=== PATIENT | female | born 1975 | race Caucasian/White ===

== ENCOUNTER → 2016-06-08 11:50 | Day surgery (SDC) | payer OTHER ==
--- NOTE | 2016-06-04 03:50 | HP ---
PREOPERATIVE HISTORY AND PHYSICAL: DATE OF ADMISSION: 06/08/16 DATE OF OFFICE VISIT/ENCOUNTER: 06/02/16 ATTENDING SURGEON: Lydia Weaver MD PROCEDURE: Left wrist carpal tunnel release. CHIEF COMPLAINT: Numbness and tingling in left hand. HISTORY OF PRESENT ILLNESS: This is a 41-year-old female who complains of numbness and tingling in her left hand that has been present for several months now. She has had a nerve conduction study in the past, which showed carpal tunnel syndrome present on the left. She has received a cortisone injection in the past, which was helpful; however, the symptoms returned and she reports that they are progressively worsening. She has also tried braces to no avail. She has recently undergone a right carpal tunnel release and is pleased with the results and is interested in pursuing the same surgical intervention for her left wrist at this time. PAST MEDICAL HISTORY: 1. Asthma. 2. Diabetes. 3. Emphysema. 4. Hypertension. 5. Sleep apnea. 6. Depression/anxiety. 7. Acid reflux. 8. Hypothyroidism. PAST SURGICAL HISTORY: 1. Appendectomy. 2. Right carpal tunnel release. CURRENT MEDICATIONS: 1. Fluticasone propionate. 2. Gabapentin 300 mg daily. 3. Hydroxyzine HCL 25 mg daily. 4. Hydroxyzine pamoate 50 mg 2 tabs daily. 5. Lexapro 20 mg daily. 6. Metformin HCL 500 mg daily. 7. Metformin HCL ER 1000 mg b.i.d. 8. Naproxen 500 mg b.i.d. p.r.n. pain. 9. Nortriptyline HCL 10 mg 3 to 4 caps every night. 10. Oxybutynin chloride ER 10 mg daily. 11. Prazosin HCL 1 mg daily. 12. Propranolol HCL 20 mg b.i.d. 13. Singulair 10 mg daily. 14. Symbicort 80/4.5 mcg/ACT 2 puffs twice a day. 15. Synthroid 25 mcg a day. 16. Trazodone HCL 100 mg 2 tabs q.h.s. 17. Ventolin HFA inhaler 2 puffs q.4 hours p.r.n. ALLERGIES: 1. MORPHINE causes hives and itching. 2. OXYCODONE causes hives and itching. 3. LATEX allergy. FAMILY MEDICAL HISTORY: Significant for heart disease, lung disease, cancer, and diabetes. SOCIAL HISTORY: The patient is on disability. She smokes currently and has been a smoker for on and off for several years. Currently, she is smoking a pack or up to 2 packs per day. She denies recreational drug use. Admits to alcohol use on social occasions. REVIEW OF SYSTEMS: General: Negative for fevers, chills, or night sweats. No known anesthesia problems. HEENT: Negative for headache, lightheadedness, or syncopal episodes. Integumentary: Negative for abrasions, lesions, or open wounds. Cardiothoracic: Positive for hypertension. Negative for chest pain, palpitations, or edema. Pulmonary: Positive for chronic cough and emphysema, and shortness of breath with exertion. GI: Positive for GERD. Negative for nausea, vomiting, diarrhea, constipation. : Negative for nocturia, urinary frequency, urgency, history of UTIs, or kidney problems. Musculoskeletal: Positive for current complaint. Negative for chronic or intermittent back pain or history of fractures. Neurological: Positive for depression/anxiety. Negative for history of seizure, stroke, or epilepsy. Endocrine: Positive for diabetes and hypothyroidism. Hematologic: Negative for easy bruising, anemia, excessive bleeding, or history of DVT. Infectious Disease: Positive for history of MRSA in her right knee approximately 3 years ago. Negative for hepatitis C or HIV. PHYSICAL EXAMINATION GENERAL: Well-developed, well-nourished 41-year-old female, in no acute distress. VITAL SIGNS: Height 5 feet 3 inches, weight 241 pounds, pulse rate 70, blood pressure 127/75. HEENT: Normocephalic, atraumatic. Pupils are equal, round, and reactive to light and accommodation. Extraocular movements are intact. Throat is clear. NECK: Supple. No palpable lymph nodes. PULMONARY: Lungs are clear to auscultation bilaterally. No wheezes, rales, or rhonchi. CARDIOTHORACIC: Regular rate and rhythm. S1, S2. No murmurs, rubs, or gallops. No edema. ABDOMEN: Positive bowel sounds, soft, nontender. NEUROLOGICAL: Alert and oriented x3. Cranial nerves II through XII are intact. Sensation is intact to light touch. MUSCULOSKELETAL: On exam of her left hand, there is no visible thenar wasting. She has mild weakness in left thumb abduction. Mildly positive Tinel's sign at the wrist and a positive Phalen's test. She has good motion in her fingers and wrist. Sensation is intact to light touch. EMG/nerve conduction study shows mild carpal tunnel syndrome on the left. IMPRESSION: Left carpal tunnel syndrome. PLAN: The patient is scheduled to undergo a left carpal tunnel release with Dr. Weaver on 06/08/16. She will return to the office in 10 to 14 days postop for followup and suture removal. A prescription for Ultracet was e-scribed to the patient's pharmacy for postoperative pain management. AIMEE HENDRICKSON [id number]/NADINE #: [id number] MTDNirmal
[~2016-06-08 11:50] MED LIST: Acetaminophen TAB* 325 MG PO PRN; Buffered Lidocaine 1% SYR 3ML* 3 ML/SYR SYRINGE INTRADERM ONE; Buffered Lidocaine 1% SYR 3ML* 3 ML/SYR SYRINGE ONE; DiMENhydriNATE IV* 50 MG/ML VIAL IV PUSH PRN; Famotidine IV* 10 MG/ML 2 ML (20 mg) IV ONE; Famotidine IV* 10 MG/ML 2 ML (20 mg) ONE; Ketorolac INJ* 30 MG/ML 1 ML VIAL ONE; Lidocaine 1% INJ* 10 MG/ML 30 ML SDV ONE; Midazolam* 1 MG/ML 5 ML VIAL (5 MG) ONE; Ondansetron INJ* 2 MG/ML VIAL ONE; Propofol* 10 MG/ML 20 ML BTL IV PUSH ONE; fentaNYL* 50 MCG/ML 2 ML VIAL (100 MCG VIAL) ONE
[2016-06-08 17:03] VITALS: BP 120/77
--- NOTE | 2016-06-09 04:37 | OP ---
DATE OF OPERATION: 06/08/16 - [facility] [place] DATE OF : 77 SURGEON: Lydia Weaver MD FREIGHT ADJUSTER: AIMEE Edwards ANESTHESIA: Local, MAC. PRE-OP DIAGNOSIS: Left carpal tunnel syndrome. POST-OP DIAGNOSIS: Left carpal tunnel syndrome. OPERATIVE PROCEDURE: Left carpal tunnel release. ESTIMATED BLOOD LOSS: Zero. TOURNIQUET TIME: About 8 minutes. INDICATIONS: Fartun is a 41-year-old female with numbness and tingling in the median nerve distribution of her left hand. She presents for carpal tunnel release. DESCRIPTION OF PROCEDURE: The patient was brought to the operating room and was given a sedation anesthetic and a local infiltration of 10 cc of 1% plain lidocaine. The skin of her left hand and forearm was prepped and draped in the usual sterile fashion. The hand and forearm were exsanguinated and the tourniquet elevated to 250 mmHg. A longitudinal incision was made in the palm in line with the ring finger, dissected sharply through the subcutaneous tissue down to the transverse carpal ligament. The ligament was divided sharply with a knife and then more proximally with the scissors. The nerve was dissected free from the surrounding tissue and there was an area of moderate compression at the midportion of the ligament. The wound was irrigated and skin edges reapproximated with 4-0 nylon suture. The wound was dressed with Xeroform, 4x4 , Webril, and an Rai wrap. The patient tolerated the procedure well and was brought to the recovery room in good condition. [id number]/CPS #: [id number] MTDD
== END | disposition home or self-care (01) ==
LOC: OREAST 11:50
PROVIDERS: ATTEND Orthopaedic Surgery
DX: G56.02 Carpal tunnel syndrome, left upper limb (principal); E11.8 Type 2 diabetes mellitus with unspecified complications; E03.9 Hypothyroidism, unspecified; F17.210 Nicotine dependence, cigarettes, uncomplicated; I10 Essential (primary) hypertension; J43.9 Emphysema, unspecified
CPT/HCPCS: J1885; J2250; J2405; J2704; J3010

== ENCOUNTER 2017-06-23 12:49 | Emergency (ER) | payer OTHER ==
[2017-06-23 14:34] VITALS: BP 115/59
--- NOTE | 2017-06-23 14:57 | UC ---
Complaint Female HPI - HPI Summary HPI Summary: 1. left medial ankle pain -for 1 week, painful with movement, did have a few episodes of twisting left ankle recently 2. thick yellow vaginal discharge for 1 week 3. pain and burning with urination for 1 week, no fevers, flank pain, nausea or vomiting 4. Blood sugars have been running 200-300 + she "doesn't know why". Patient states she "eats no sugars", but with further discussion she eats a lot of rice , pasta, white bread, potatoes---she did not realize these break down in to simple sugars - History Of Current Complaint Chief Complaint: UCGU Stated Complaint: ABD PAIN, PAINFUL URINATION Time Seen by Provider: 06/23/17 14:36 Hx Obtained From: Patient Hx Last Menstrual Period: 06/14/2017 ?: No Onset/Duration: Gradual Onset, Lasting Weeks - 1-2, Still Present Timing: Constant Severity Initially: Moderate Severity Currently: Moderate Pain Intensity: 6 Character: Burning - with urination Aggravating Factor(s): Urination Alleviating Factor(s): Nothing Associated Signs And Symptoms: Positive: Vaginal Discharge - Allergies/Home Medications Allergies/Adverse Reactions: Allergies Allergy/AdvReac Type Severity Reaction Status Date / Time MS Latex [Latex] Allergy Intermediate Rash Verified 06/23/17 14:26 MS Oxycodone [Oxycodone] Allergy Intermediate Rash Verified 06/23/17 14:26 MS Morphine [Morphine] Allergy Mild n/v Verified 06/23/17 14:26 BEETS Allergy Intermediate WATERY Uncoded 06/23/17 14:26 EYES, NAUSEA PMH/Surg Hx/FS Hx/Imm Hx Previously Healthy: No Endocrine History: Diabetes, Hypothyroidism, Dyslipidemia Cardiovascular History: Hypertension GI/ History: Other Other GI/ History: "weak bladder" Psychological History: Anxiety, Depression Other History Of: Negative For: HIV, Hepatitis B, Hepatitis C, Anticoagulant Therapy - Surgical History Surgical History: Yes Surgery Procedure, Year, and Place: 2015 APPENDECTOMY [facility] [place]. 04/2016 RT HAND CARPAL TUNNEL [facility] [place] - Family History Known Family History: Positive: None, Hypertension, Diabetes Negative: Cardiac Disease, Renal Disease, Respiratory Disease, Seizure Disorder, Blood Disorder, Other - Social History Occupation: Unemployed Lives: With Family Alcohol Use: Weekly Alcohol Amount: FEW DRINKS/ WEEK Substance Use Type: None Smoking Status (MU): Heavy Every Day Tobacco Smoker Type: Cigarettes Amount Used/How Often: 1PPD SINCE FALL 2015 ( STATES SHE HAS QUIT AND STARTED BACK MANY TIMES Have You Smoked in the Last Year: Yes Household Exposure Type: Cigarettes Cessation Counseling: Counseled 3+Min - 10 Min - Immunization History Most Recent Influenza Vaccination: Most Recent Tetanus Shot: unable to determine Most Recent Pneumonia Vaccination: unable to determine Review of Systems Constitutional: Negative Skin: Negative Eyes: Negative ENT: Negative Respiratory: Negative Cardiovascular: Negative Gastrointestinal: Negative Genitourinary: Dysuria, Hematuria, Frequency, Urgency, Vaginal/Penile Burning, Vaginal/Penile Discharge Motor: Decreased ROM - left ankle Neurovascular: Negative Musculoskeletal: Arthralgia - left ankle Neurological: Negative Psychological: Negative Is Patient Immunocompromised?: No All Other Systems Reviewed And Are Negative: Yes Physical Exam Triage Information Reviewed: Yes Appearance: Well-Appearing, No Pain Distress, Obese Vital Signs: Initial Vital Signs Temp 99.2 F 06/23/17 14:27 Pulse 83 06/23/17 14:27 Resp 18 06/23/17 14:27 BP 115/59 06/23/17 14:27 Pulse Ox 96 06/23/17 14:27 Vital Signs Reviewed: Yes Eye Exam: Normal Eyes: Positive: Conjunctiva Clear ENT Exam: Normal ENT: Positive: Normal ENT inspection, Hearing grossly normal. Negative: Nasal congestion, Trismus, Muffled voice, Hoarse voice Dental Exam: Normal Neck exam: Normal Neck: Positive: Supple, Nontender Respiratory Exam: Normal Respiratory: Positive: Chest non-tender, No respiratory distress, No accessory muscle use Cardiovascular Exam: Normal Cardiovascular: Positive: RRR, Pulses Normal, Brisk Capillary Refill Abdominal Exam: Normal Abdomen Description: Positive: Nontender, No Organomegaly, Soft. Negative: CVA Tenderness (R), CVA Tenderness (L) Bowel Sounds: Positive: Present Musculoskeletal Exam: Normal Musculoskeletal: Positive: Strength Intact, No Edema, ROM Limited @ - left ankle due to pain Neurological Exam: Normal Neurological: Positive: Alert, Muscle Tone Normal Psychological Exam: Normal Skin Exam: Normal UC Physical Exam Vital Signs On Initial Exam: Initial Vitals Temp Pulse Resp BP Pulse Ox 99.2 F 83 18 115/59 96 06/23/17 14:27 06/23/17 14:27 06/23/17 14:27 06/23/17 14:27 06/23/17 14:27 - Genitalia Exam Female Genitourinary: Normal External Exam, Other - godinez yellow thick vaginal secretions Diagnostics - Laboratory Diagnostic Studies Completed/Ordered: +nitrite, trace blood, +1 leukoesterace. [id number] Complaint Female Dx - Course Course Of Treatment: Keflex, Flagyl, Diflucan times 1, follow with automobile rental agent as planned---continue to check blood sugars and discuss diet with your providers, Ice wrap for ankle follow with pcp prn - Differential Dx/Diagnosis Provider Diagnoses: Vaginitis, UTI, Left ankle pain, Hyperglycemia, nicotine dependent Discharge - Discharge Plan Condition: Stable Disposition: HOME Prescriptions: Cephalexin CAP* [Keflex CAP*] 500 mg PO BID #20 cap Fluconazole [Diflucan 150 MG (NF)] 150 mg PO ONCE #1 tab Metronidazole [Flagyl 500 MG TAB] 500 mg PO BID #14 tab Patient Education Materials: How to Stop Smoking (ED), Urinary Tract Infection in Women (DC), Vaginitis (ED), Arthralgia (ED), Diabetic Hyperglycemia (ED) Referrals: Jordyn Smith MD [Primary Care Provider] - If Needed Additional Instructions: Follow with [facility] 06/30/17 as planned
[2017-06-23] MEDS ORDERED: Ibuprofen TAB* 600 MG PO ONE (14:58)
--- NOTE | 2017-06-23 15:28 | RAD ---
INDICATION: Ankle pain. TECHNIQUE: 3 views of the left ankle were obtained. FINDINGS: There is diffuse soft tissue swelling. The bones are in normal alignment. No fracture is seen. Joint spaces appear maintained. IMPRESSION: SOFT TISSUE SWELLING.
--- NOTE | 2017-06-24 17:44 | UC ---
- Progress Note Progress Note: U/A >100,000 KLebsiella Oxytoca----pending sensitivities---will d/c Keflex Change to Cipro 500 mg po bid for 7 days ---continue flagyl
== END 2017-06-23 15:58 | disposition home or self-care (01) ==
LOC: UCEAST 12:49
DX: M25.572 Pain in left ankle and joints of left foot (principal); N76.0 Acute vaginitis; N39.0 Urinary tract infection, site not specified; R31.9 Hematuria, unspecified; B96.1 Klebsiella pneumoniae [K. pneumoniae] as the cause of diseases classified elsewhere; E11.65 Type 2 diabetes mellitus with hyperglycemia; E03.9 Hypothyroidism, unspecified; E78.5 Hyperlipidemia, unspecified; I10 Essential (primary) hypertension; F41.9 Anxiety disorder, unspecified; F32.9 Major depressive disorder, single episode, unspecified; E66.9 Obesity, unspecified; Z88.5 Allergy status to narcotic agent; Z91.040 Latex allergy status; Z71.6 Tobacco abuse counseling; F17.210 Nicotine dependence, cigarettes, uncomplicated
CPT/HCPCS: 81003; 81025; 87077; 87086; 87186; 87480; 87491; 87510; 87591; 87661; 99213; A9270-GY; G0463

== ENCOUNTER 2017-11-08 20:37 | Emergency (ER) | payer OTHER ==
[2017-11-08] MEDS ORDERED: Sulfamethox/Trimethoprim DS 800/160* TAB PO ONE (20:53)
[2017-11-08 20:57] VITALS: BP 115/74
--- NOTE | 2017-11-08 21:06 | UC ---
Mulugeta Rice Stephanie, scribed for Stephen Calixto MD on 11/08/17 at 2057 . Upper Extremity HPI - HPI Summary HPI Summary: The pt is a 42 y/o F presenting to with c/o L arm pain that began 2 weeks ago. Symptoms include abrasions, swelling, redness and increased temperature in the L arm. The pt denies trauma and heavy lifting. - History of Current Complaint Stated Complaint: ARM PAIN Time Seen by Provider: 11/08/17 20:48 Hx Obtained From: Patient Hx Last Menstrual Period: 06/14/2017 Onset/Duration: Gradual Onset, Lasting Weeks - 2, Still Present Severity Currently: Moderate Location Of Pain: Is Discrete @ - L arm Aggravating Factor(s): Nothing Alleviating Factor(s): Nothing Associated Signs And Symptoms: Positive: Swelling, Redness - Allergies/Home Medications Allergies/Adverse Reactions: Allergies Allergy/AdvReac Type Severity Reaction Status Date / Time latex Allergy Rash Verified 11/08/17 20:58 morphine Allergy Nausea And Verified 11/08/17 20:58 Vomiting oxycodone Allergy Rash Verified 11/08/17 20:58 BEETS Allergy Intermediate WATERY Uncoded 06/23/17 14:26 EYES, NAUSEA PMH/Surg Hx/FS Hx/Imm Hx Cardiovascular History: Other Other Cardiovascular History: Negative: HTN Other History Of: Negative For: HIV, Hepatitis B, Hepatitis C, Anticoagulant Therapy - Surgical History Surgical History: Yes Surgery Procedure, Year, and Place: 2014 APPENDECTOMY [facility]. 04/2016 RT HAND CARPAL TUNNEL [facility] - Family History Known Family History: Positive: Hypertension, Diabetes Negative: Cardiac Disease, Renal Disease, Respiratory Disease, Seizure Disorder, Blood Disorder, Other - Social History Occupation: Unemployed Lives: With Family Alcohol Use: Weekly Alcohol Amount: FEW DRINKS/ WEEK Substance Use Type: None Smoking Status (MU): Heavy Every Day Tobacco Smoker Type: Cigarettes Amount Used/How Often: 1PPD SINCE FALL 2015 ( STATES SHE HAS QUIT AND STARTED BACK MANY TIMES Have You Smoked in the Last Year: Yes Household Exposure Type: Cigarettes - Immunization History Most Recent Influenza Vaccination: 9637-4671 season Most Recent Tetanus Shot: unable to determine Most Recent Pneumonia Vaccination: unable to determine Review of Systems Constitutional: Negative Skin: Other - abrasions over L forearm Eyes: Negative ENT: Negative Respiratory: Negative Cardiovascular: Negative Gastrointestinal: Negative Genitourinary: Negative Motor: Negative Neurovascular: Negative Musculoskeletal: Other: - L arm pain, L arm redness and swelling Neurological: Negative Psychological: Negative All Other Systems Reviewed And Are Negative: Yes Physical Exam - Summary Physical Exam Summary: VITAL SIGNS: Reviewed. GENERAL: Patient is a well-developed and nourished FEMALE who is lying comfortable in the stretcher. Patient is not in any acute respiratory distress. HEAD AND FACE: Normocephalic EYES: PERRLA, EOMI x 2. EARS: Hearing grossly intact. MOUTH: Oropharynx within normal limits. NECK: Supple, trachea is midline, no adenopathy, no JVD, no carotid bruit. CHEST: Symmetric, no tenderness at palpation LUNGS: Clear to auscultation bilaterally. No wheezing or crackles. CVS: Regular rate and rhythm, S1 and S2 present, no murmurs or gallops appreciated. ABDOMEN: Soft, non-tender. Bowel sounds are normal. No abdominal abnormal pulsations. EXTREMITIES: Full ROM in all major joints, no edema, no cyanosis or clubbing. Small cellulitis in L arm and multiple abrasions in L forearm NEURO: Alert and oriented x 3. No acute neurological deficits. Speech is normal and follows commands. SKIN: Dry and warm Triage Information Reviewed: Yes Vital Signs: Initial Vital Signs Temp 98.3 F 11/08/17 20:53 Pulse 79 11/08/17 20:53 Resp 16 11/08/17 20:53 BP 115/74 11/08/17 20:53 Pulse Ox 97 11/08/17 20:53 Vital Signs Reviewed: Yes Upper Extremity Course/Dx - Course Course Of Treatment: Patient with the left arm cellulitis. The patient was placed in Bactrim. Patient was instructed to return to the urgent care or go to the emergency room if symptoms worsen. The patient understands and agrees. - Differential Dx/Diagnosis Provider Diagnoses: cellulitis Discharge - Sign-Out/Discharge Documenting (check all that apply): Discharge/Admit/Transfer - Discharge Plan Condition: Stable Disposition: HOME Prescriptions: Sulfamethox/Trimethoprim DS* [Bactrim DS 800/160 TAB*] 1 tab PO BID #20 tab Patient Education Materials: Cellulitis (ED) Referrals: David Mitchell MD [Primary Care Provider] - - Billing Disposition and Condition Condition: STABLE Disposition: Home The documentation as recorded by the Mulugeta shrestha Stephanie accurately reflects the service I personally performed and the decisions made by me, Stephen Calixto MD.
== END 2017-11-08 21:05 | disposition home or self-care (01) ==
LOC: UCEAST 20:37
DX: L03.114 Cellulitis of left upper limb (principal); Z88.5 Allergy status to narcotic agent; Z91.040 Latex allergy status; F17.210 Nicotine dependence, cigarettes, uncomplicated; Z82.49 Family history of ischemic heart disease and other diseases of the circulatory system; Z83.3 Family history of diabetes mellitus
CPT/HCPCS: 99202; A9270-GY; G0463

== ENCOUNTER 2018-01-14 19:38 | Emergency (ER) | payer OTHER ==
[2018-01-14 19:49] VITALS: BP 107/66
--- NOTE | 2018-01-14 20:02 | UC ---
Skin Complaint HPI - HPI Summary HPI Summary: developing an abscess on the left side of her chin, red and painful, patient reports picking at it but has had no drainage history of MRSA - History of Current Complaint Chief Complaint: UCSkin Time Seen by Provider: 01/14/18 19:53 Stated Complaint: CHIN COMPLAINT Hx Obtained From: Patient Hx Last Menstrual Period: 11/28/17 ?: No Onset/Duration: Gradual Onset, Lasting Days, Still Present Timing: Constant Pain Intensity: 7 Pain Scale Used: 0-10 Numeric Location: Discrete Character: Pain, Redness, Raised Aggravating Factor(s): Touch Alleviating Factor(s): Nothing Associated Signs & Symptoms: Positive: Tenderness - Allergy/Home Medications Allergies/Adverse Reactions: Allergies Allergy/AdvReac Type Severity Reaction Status Date / Time latex Allergy Rash Verified 01/14/18 19:49 morphine Allergy Nausea And Verified 01/14/18 19:49 Vomiting oxycodone Allergy Rash Verified 01/14/18 19:49 BEETS Allergy Intermediate WATERY Uncoded 01/14/18 19:49 EYES, NAUSEA Home Medications: Home Medications Atorvastatin* [Lipitor 10 MG*] 01/14/18 [History] Losartan TAB* [Cozaar TAB*] 01/14/18 [History Confirmed 01/14/18] Review of Systems Constitutional: Negative Skin: Other - developing abscess left side of chin Eyes: Negative ENT: Negative Respiratory: Negative Cardiovascular: Negative Gastrointestinal: Negative Genitourinary: Negative Motor: Negative Neurovascular: Negative Musculoskeletal: Negative Neurological: Negative Psychological: Negative Is Patient Immunocompromised?: No All Other Systems Reviewed And Are Negative: Yes PMH/Surg Hx/FS Hx/Imm Hx Previously Healthy: No Endocrine History: Diabetes, Hypothyroidism, Dyslipidemia Cardiovascular History: Hypertension Psychological History: Anxiety, Depression, Post Traumatic Stress Disorder Other History Of: Negative For: HIV, Hepatitis B, Hepatitis C, Anticoagulant Therapy - Surgical History Surgical History: Yes Surgery Procedure, Year, and Place: 2015 APPENDECTOMY [facility]. 04/2016 RT HAND CARPAL TUNNEL [facility] - Family History Known Family History: Positive: None, Hypertension, Diabetes Negative: Cardiac Disease, Renal Disease, Respiratory Disease, Seizure Disorder, Blood Disorder, Other - Social History Occupation: Disabled Lives: With Family Alcohol Use: None Alcohol Amount: FEW DRINKS/ WEEK Substance Use Type: None Smoking Status (MU): Former Smoker Type: Cigarettes Amount Used/How Often: 1PPD SINCE FALL 2015 ( STATES SHE HAS QUIT AND STARTED BACK MANY TIMES Have You Smoked in the Last Year: Yes When Did the Patient Quit Smoking/Using Tobacco: 2017 Household Exposure Type: Cigarettes - Immunization History Most Recent Influenza Vaccination: 6990-1521 season Most Recent Tetanus Shot: unable to determine Most Recent Pneumonia Vaccination: unable to determine Physical Exam Triage Information Reviewed: Yes Appearance: Well-Appearing, No Pain Distress, Well-Nourished Vital Signs: Initial Vital Signs Temp 98.2 F 01/14/18 19:43 Pulse 84 01/14/18 19:43 Resp 16 01/14/18 19:43 BP 107/66 01/14/18 19:43 Pulse Ox 97 01/14/18 19:43 Vital Signs Reviewed: Yes Eye Exam: Normal Eyes: Positive: Conjunctiva Clear ENT Exam: Normal ENT: Positive: Normal ENT inspection, Hearing grossly normal, Pharynx normal. Negative: Nasal congestion, Trismus, Muffled voice, Hoarse voice, Dental tenderness Dental Exam: Normal Neck exam: Normal Neck: Positive: Supple, Nontender Respiratory Exam: Normal Respiratory: Positive: Chest non-tender, No respiratory distress, No accessory muscle use Cardiovascular Exam: Normal Cardiovascular: Positive: RRR, Pulses Normal, Brisk Capillary Refill Abdominal Exam: Normal Abdomen Description: Positive: Nontender, Soft Musculoskeletal Exam: Normal Musculoskeletal: Positive: Strength Intact, ROM Intact, No Edema Neurological Exam: Normal Neurological: Positive: Alert, Muscle Tone Normal Psychological Exam: Normal Skin Exam: Other Skin: Positive: Other - red firm hard area left side of chin, some scabbing where patient has been pick at area Course/Dx - Course Course Of Treatment: warm compress, bactraban, bactrim recheck prn - Diagnoses Provider Diagnoses: abscess left side of chin Discharge - Sign-Out/Discharge Documenting (check all that apply): Patient Departure All imaging exams completed and their final reports reviewed: No Studies - Discharge Plan Condition: Stable Disposition: HOME Prescriptions: Sulfamethox/Trimethoprim DS* [Bactrim DS 800/160 TAB*] 1 tab PO BID #19 tab Patient Education Materials: Abscess (ED), Warm Compress or Soak (ED) Referrals: David Mitchell MD [Primary Care Provider] - If Needed - Billing Disposition and Condition Condition: STABLE Disposition: Home
[2018-01-14] MEDS ORDERED: Sulfamethox/Trimethoprim DS 800/160* TAB PO ONE (20:03)
[2018-01-14] MEDS ORDERED: Mupirocin 2% OINT* TUBE TOPICAL ONE (20:03)
--- NOTE | 2018-01-15 13:18 | UC ---
- Progress Note Progress Note: no images this encounter Discharge - Sign-Out/Discharge Documenting (check all that apply): Post-Discharge Follow Up All imaging exams completed and their final reports reviewed: No Studies - Discharge Plan Condition: Stable Disposition: HOME Prescriptions: Sulfamethox/Trimethoprim DS* [Bactrim DS 800/160 TAB*] 1 tab PO BID #19 tab Patient Education Materials: Abscess (ED), Warm Compress or Soak (ED) Referrals: David Mitchell MD [Primary Care Provider] - If Needed - Billing Disposition and Condition Condition: STABLE Disposition: Home
== END 2018-01-14 20:13 | disposition home or self-care (01) ==
LOC: UCEAST 19:38
DX: L02.01 Cutaneous abscess of face (principal); Z88.4 Allergy status to anesthetic agent; Z87.891 Personal history of nicotine dependence
CPT/HCPCS: 99213; A9270-GY; G0463

== ENCOUNTER 2018-10-09 18:44 | Emergency (ER) | payer OTHER ==
[2018-10-09] MEDS ORDERED: Sulfamethox/Trimethoprim DS 800/160* TAB PO ONE (20:21)
[2018-10-09] MEDS ORDERED: Tetan/Diph/Pertus SYR(Tdap)* 0.5 ML SYR(BOOSTRIX) use SYR IM ONE (20:23)
--- NOTE | 2018-10-09 20:23 | ED ---
Laceration/Wound HPI - HPI Summary HPI Summary: Patient complains of mechanical fall with laceration to fifth digit of right foot and abrasion to right cabrera. Denies any other symptoms pain or injury. Tetanus status up-to-date. - History of Current Complaint Stated Complaint: RT PINKY TOE LAC PER EMS Time Seen by Provider: 10/09/18 18:58 Hx Obtained From: Patient Hx Last Menstrual Period: 11/28/17 Aggravating: Movement Onset Severity: Severe Current Severity: Severe Pain Intensity: 10 Pain Scale Used: 0-10 Numeric Associated Signs & Symptoms: Pain - Allergy/Home Medications Allergies/Adverse Reactions: Allergies Allergy/AdvReac Type Severity Reaction Status Date / Time oxycodone Allergy Severe Rash Verified 08/21/18 09:51 latex Allergy Intermediate Rash Verified 08/21/18 09:51 adhesive tape Allergy Rash Verified 08/21/18 09:51 morphine AdvReac Severe Nausea And Verified 08/21/18 09:51 Vomiting Bleach (Sodium Hypochlorite) AdvReac headaches, Verified 08/21/18 09:51 watery eyes BEETS AdvReac Intermediate WATERY Uncoded 08/21/18 09:51 EYES, NAUSEA PMH/Surg Hx/FS Hx/Imm Hx Endocrine/Hematology History: Reports: Hx Diabetes - TYPE 2, Hx Thyroid Disease - HYPO Denies: Hx Anticoagulant Therapy Cardiovascular History: Reports: Hx Hypertension - ON MEDS Denies: Hx Congestive Heart Failure, Hx Deep Vein Thrombosis, Hx Myocardial Infarction, Hx Pacemaker/ICD, Other Cardiovascular Problems/Disorders Respiratory History: Reports: Hx Asthma, Hx Sleep Apnea Denies: Hx Chronic Obstructive Pulmonary Disease (COPD), Hx Lung Cancer, Hx Pneumonia, Hx Pulmonary Embolism, Other Respiratory Problems/Disorders GI History: Reports: Hx Gastroesophageal Reflux Disease, Other GI Disorders - LLQ and epigastric pain since 1999, FREQUENTLY, UNSURE WHY Denies: Hx Gall Bladder Disease, Hx Gastrointestinal Bleed, Hx Ulcer, Hx Urosepsis History: Reports: Hx Kidney Infection - Hx OF, NONE PAST 2 YEARS Denies: Hx Dialysis, Hx Kidney Stones, Hx Renal Disease, Other Problems/ Disorders Musculoskeletal History: Reports: Hx Arthritis - RT KNEE, Hx Scoliosis, Hx Tendonitis - left ankle Denies: Other Musculoskeletal History Sensory History: Reports: Hx Contacts or Glasses - GLASSES Denies: Hx Hearing Aid Opthamlomology History: Reports: Hx Contacts or Glasses - GLASSES Neurological History: Reports: Hx Headaches, Hx Migraine Denies: Hx Dementia, Hx Seizures, Hx Transient Ischemic Attacks (TIA), Other Neuro Impairments/Disorders Psychiatric History: Reports: Hx Anxiety, Hx Depression Denies: Hx Eating Disorder, Hx Panic Disorder, Hx Schizophrenia, Hx Bipolar Disorder, Hx of Violent Episodes Against Others - Cancer History Hx Chemotherapy: No Hx Radiation Therapy: No - Surgical History Surgery Procedure, Year, and Place: 2015 APPENDECTOMY [facility]. 04/2016 RT HAND CARPAL TUNNEL [facility]. LEFT CARPAL TUNNEL, 2018, [facility]. 1998, TUBAL LIGATION Hx Anesthesia Reactions: No Infectious Disease History: No Infectious Disease History: Reports: Hx of Known/Suspected MRSA Denies: Hx Clostridium Difficile, Hx Hepatitis, Hx Human Immunodeficiency Virus (HIV), Hx Shingles, Hx Tuberculosis, Hx Known/Suspected VRE, Hx Known/ Suspected VRSA, History Other Infectious Disease, Traveled Outside the [place] in Last 30 Days - Family History Known Family History: Positive: None, Hypertension, Diabetes Negative: Cardiac Disease, Renal Disease, Respiratory Disease, Seizure Disorder, Blood Disorder, Other - Social History Alcohol Use: Occasionally Alcohol Amount: FEW DRINKS/ WEEK Substance Use Type: Reports: None Smoking Status (MU): Heavy Every Day Tobacco Smoker Type: Cigarettes Amount Used/How Often: 8 CIGS PER DAY Have You Smoked in the Last Year: Yes Review of Systems Constitutional: Negative Eyes: Negative ENT: Negative Cardiovascular: Negative Respiratory: Negative Gastrointestinal: Negative Genitourinary: Negative Musculoskeletal: Negative Skin: Other Neurological: Negative Psychological: Normal All Other Systems Reviewed And Are Negative: Yes Physical Exam - Summary Physical Exam Summary: Laceration on plantar surface of the fifth digit of right foot. No erythema, ecchymosis, deformity, swelling noted to toes or right foot. Normal range of motion of right ankle right knee without any indication of pain. Abrasion to anterior right cabrera. Triage Information Reviewed: Yes Vital Signs On Initial Exam: Initial Vitals Temp Pulse Resp BP Pulse Ox 98.3 F 91 17 97/57 97 10/09/18 18:49 10/09/18 18:49 10/09/18 18:49 10/09/18 18:49 10/09/18 18:49 Vital Signs Reviewed: Yes Appearance: Positive: Well-Appearing Skin: Positive: Warm Head/Face: Positive: Normal Head/Face Inspection Eyes: Positive: Normal Neck: Positive: Supple Respiratory/Lung Sounds: Positive: Clear to Auscultation Cardiovascular: Positive: Normal Abdomen Description: Positive: Nontender Musculoskeletal: Positive: Normal Neurological: Positive: Normal Psychiatric: Positive: Normal AVPU Assessment: Alert - Paul Coma Scale Best Eye Response: 4 - Spontaneous Best Motor Response: 6 - Obeys Commands Best Verbal Response: 5 - Oriented Coma Scale Total: 15 Procedures - Laceration/Wound Repair 1 Location: lower extremity Description: Linear Anesthesia: Local Length, Depth and Shape: 3cm x .5cm Betadine Prep?: Yes Irrigated w/ Saline (ccs): 300 Laceration/Wound Explored: clean Debridement: minimal Number of Sutures: 6 - 4.0 ethilon Layer Closure?: No Sterile Dressing Applied?: No Diagnostics - Vital Signs Vital Signs Temp Pulse Resp BP Pulse Ox 10/09/18 18:49 98.3 F 91 17 97/57 97 - Laboratory Lab Statement: Any lab studies that have been ordered have been reviewed, and results considered in the medical decision making process. Laceration Repair Course/Dx - Course Course Of Treatment: Patient complains of mechanical fall with laceration to fifth digit of right foot and abrasion to right cabrera. Denies any other symptoms pain or injury. Tetanus status up-to-date. Physical exam:Laceration on plantar surface of the fifth digit of right foot. No erythema, ecchymosis, deformity, swelling noted to toes or right foot. Normal range of motion of right ankle right knee without any indication of pain. Abrasion to anterior right cabrera. Vital signs within normal limits. Wound sutured. X-ray right foot negative for acute process. Wound sutured. Rx for Bactrim. - Clinical Impression Provider Diagnoses: Fall, Laceration Discharge - Sign-Out/Discharge Documenting (check all that apply): Patient Departure Patient Received Moderate/Deep Sedation with Procedure: No - Discharge Plan Condition: Stable Disposition: HOME Prescriptions: Sulfamethox/Trimethoprim DS* [Bactrim DS 800/160 TAB*] 1 tab PO BID 10 Days #20 tab Patient Education Materials: Care For Your Stitches (ED), Laceration (ED) Referrals: Avtar Hankins MD [Primary Care Provider] - Additional Instructions: Take antibiotics as directed. Sutures out in 10 days. Keep wound clean and dry and wrapped. Starting tomorrow you may wash with warm running water and soap. Do not submerge as in swimming or bathing. Return to the ED for any new or worsening symptoms. - Billing Disposition and Condition Condition: STABLE Disposition: Home
[2018-10-09 20:50] VITALS: BP 110/57
== END 2018-10-09 20:49 | disposition home or self-care (01) ==
LOC: ED 18:44
DX: S91.114A Laceration without foreign body of right lesser toe(s) without damage to nail, initial encounter (principal); S80.811A Abrasion, right lower leg, initial encounter; W19.XXXA Unspecified fall, initial encounter; Y92.9 Unspecified place or not applicable; Z23 Encounter for immunization; E11.9 Type 2 diabetes mellitus without complications; E03.9 Hypothyroidism, unspecified; I10 Essential (primary) hypertension; G47.30 Sleep apnea, unspecified; J45.909 Unspecified asthma, uncomplicated; F17.210 Nicotine dependence, cigarettes, uncomplicated; Z88.5 Allergy status to narcotic agent; Z86.73 Personal history of transient ischemic attack (TIA), and cerebral infarction without residual deficits; F32.9 Major depressive disorder, single episode, unspecified; F41.9 Anxiety disorder, unspecified
CPT/HCPCS: 12002; 90471; 90715; 99283; A9270-GY

== ENCOUNTER 2019-04-26 17:27 | Emergency (ER) | payer OTHER ==
--- OUTSIDE RECORDS SUMMARY | 2019-04-26 17:52 | XMS REPORT | Continuity of Care Document ---
:1975 External Reference #:[id number] Author Name Jordyn Smith M.D. (transmitted by agent of provider Annalise Murray) Address [address] [facility], [place] [address] Care Team Providers Name Role Phone Steve Doran MD - Ophthalmology Care Team Information Manager Spanish [phone] Lydia Weaver M.D. - Surgery of Care Team Information Manager Spanish [facility] - Care Team Information Manager Spanish [phone] Geospatial Program Management Officer Pito Nieto MD - Hand Surgery Care Team Information Manager Spanish Bee Salgado M.D. - Family Medicine Care Team Information Manager Spanish Problems Active Problems Provider Date Asthma without status asthmaticus David Mitchell M.D. Onset: 08/31/2010 Obstructive sleep apnea syndrome David Mitchell M.D. Onset: 08/30/2012 Mixed hyperlipidemia David Mitchell M.D. Onset: 08/30/2012 Cerebrovascular disease David Mitchell M.D. Onset: 02/20/2013 Systemic lupus erythematosus David Mitchell M.D. Onset: 03/20/2013 Joseph thyroiditis Jacinda Pichardo M.D. Onset: 11/02/2013 Note: Dr. Austin follows Ex-smoker Yuni Chapman MD Onset: 03/22/2016 Morbid obesity Yuni Chapman MD Onset: 03/22/2016 Type 2 diabetes mellitus David Mitchell M.D. Onset: 07/30/2016 Hypothyroidism David Mitchell M.D. Onset: 08/12/2017 Essential hypertension David Mitchell M.D. Onset: 11/18/2017 Carpal tunnel syndrome of right wrist Pito Nieto MD Onset: 05/09/2018 Joint derangement João Otto MD Onset: 10/30/2018 Localized, primary osteoarthritis of the Pito Nieto MD Onset: 11/21/2018 hand Social History Type Date Description Comments Sex Unknown ETOH Use Occasionally consumes alcohol every day Recreational Drug Use Never Used Drugs Tobacco Use Start: Unknown Light tobacco smoker (10 or fewer cigarettes/day) Smoking Status Reviewed: 04/26/19 Light tobacco smoker (10 or fewer cigarettes/day) Exercise Type/Frequency Does not exercise Allergies, Adverse Reactions, Alerts Active Allergies Reaction Severity Comments Date Morphine 06/15/2010 Oxycodone 06/15/2010 Latex 02/28/2013 Bleach Contact dermatitis 07/16/2016 Milk Fat, Cow upset GI Mild 01/08/2019 Medications Active Medications SIG Qnty Indications Ordering Date Provider Vitamin B-12 Take one tab po 90tabs Kvng Cintron 04/17/2019 1000mcg daily Jarvis Leon Tablets Propranolol HCL 1 by mouth twice 60tabs Other Ordering 03/19/2019 20mg a day Provider Tablets Glipizide XL Take one tablet 90tabs E16.1 Chantel Upton MD 02/06/2019 5mg daily Tablets ER 24HR Iron 1 by mouth 2 60tabs D64.9 Bee Salgado MD 01/26/2019 325(65Fe) mg x/day, with food Tablets and Vitamin C Vitamin C 1 by mouth twice 60caps D64.9 Bee Salgado MD 01/26/2019 500mg a day, with iron Capsules Nortriptyline HCL take one cap by 30caps Kvng Cintron 01/08/2019 50mg mouth at night. Jarvis Leon Capsules Cpap Supplies [facility] provide G47.33 Yuni Chapman, 05/12/2018 necessary cpap supplies, mask to fit, tubing, head gear, filters True Metrix Meter for testing daily 1units Avtar Molina 05/04/2018 Jarvis Hankins,FACP W/Device Kit True Metrix Self test blood sugars 300units Bee Salgado MD 05/04/2018 Monitoring Blood once a day, as Glucose Strips directed Strips True Metrix Lancets 100units Avtar Molina 05/04/2018 Jarvis Hankins,FACP Lancets 30G use 2 to 3 times 100units Chantel Upton MD 05/04/2018 30G Misc daily Metformin HCL take one tablet 60tabs R79.9 Chantel Upton MD 11/30/2017 1000mg by mouth twice a Tablets day Losartan Potassium take 1 tablet by 30tabs E11.9 Chantel Upton MD 2016 25mg mouth every day Tablets Atorvastatin Calcium Take 1 Tablet By 30tabs E78.2 Bee Salgado MD 2016 Mouth Everyday AT 20mg Tablets Bedtime Synthroid take 1 tablet by 30tabs Bee Salgado MD 11/20/2015 25mcg Tablets mouth every day Oxybutynin Chloride take 1 tablet by 30tabs Bee Salgado MD 05/24/2014 ER mouth every day 10mg Tablets ER 24HR Trazodone HCL 2 or 3 by mouth 30tabs Jacinda Pichardo 07/02/2013 100mg every night at M.D. Tablets bedtime Singulair take 1 tablet by 30tabs Bee Salgado MD 04/24/2012 10mg Tablets mouth every day Lexapro 1 by mouth every 30tabs Jacinda Pichardo 06/15/2010 20mg Tablets day M.D. Gabapentin 1 at bedtime 30caps David 06/15/2010 300mg Jarvis Mitchell Capsules Prazosin HCL two by mouth Unknown 1mg every evening Capsules Lexapro 1 by mouth every Unknown 10mg Tablets day with 20mg tab (rx'd by [facility]) Bupropion Unknown Hydrochloride ER (XL) 150mg Tablets ER 24HR History Medications Ciprofloxacin HCL 1 by mouth twice 14tabs Chantel Upton MD 01/31/2019 - 250mg a day 04/09/2019 Tablets Propranolol HCL Take one tab by 60tabs Kvng Cintron 01/08/2019 - 10mg mouth in the [place] 03/19/2019 Tablets morning and at night. take with 20 mg tablet for a total of 30 mg. Glipizide Take 1 Tablet By 30tabs Bee Salgado MD 12/08/2018 - 10mg Tablets Mouth Every Day 04/09/2019 Medications Administered in Office Medication SIG Qnty Indications Ordering Provider Date Celestone 3 mg and 3mg Pito Nieto MD 11/21/2018 Injection Celestone 3 mg and 3mg Pito Nieto MD 06/27/2018 Injection PPD Bee Salgado MD 04/24/2018 Injection Depomedrol 40MG Lydia Weaver M.D. 01/22/2016 Injection Depomedrol 40MG Lydia Weaver M.D. 01/22/2016 Injection Depomedrol 40MG Lydia Weaver M.D. 10/09/2015 Injection Immunizations CPT Code Status Date Vaccine Lot # [id number] Given 02/24/2018 Influenza Virus Vaccine, Quadrivalent, Split, Preservative Free [id number] Given 07/30/2016 Pneumonia Vaccine [id number] 24091 Given 01/26/2015 Influenza Virus Vaccine, Quadrivalent, Split, Preservative Free 02495 Given 10/24/2014 Tdap - Tetanus/Diptheria/Acellular Pertussis [id number] 72270 Given 01/24/2014 Flu Vaccine Split Virus Preservative Free For Indiv [id number] Older Vital Signs Date Vital Result Comment 04/26/2019 10:38am Height 63.25 inches 5'3.25" Weight 215.00 lb Heart Rate 81 /min BP Systolic Sitting 115 mmHg BP Diastolic Sitting 73 mmHg O2 % BldC Oximetry 93 % BMI (Body Mass Index) 37.8 kg/m2 04/10/2019 9:47am Height 63.25 inches 5'3.25" Weight 212.00 lb Heart Rate 78 /min BP Systolic 130 mmHg BP Diastolic 74 mmHg BMI (Body Mass Index) 37.3 kg/m2 Results Test Acquired Date Facility Test Result H/L Range Note CBC Auto 04/10/2019 [facility] White Blood 6.8 10^3/uL Normal 3.5-10.[address] [place] [address] [phone] Red Blood Count 4.85 10^6/uL Normal 3.70-4.87 Hemoglobin 13.5 g/dL Normal 12.0-16.0 Hematocrit 41 % Normal 35-47 Mean Corpuscular Volume 85 fL Normal 80-97 Mean Corpuscular Hemoglobin 28 pg Normal 27-31 Mean Corpuscular HGB Conc 33 g/dL Normal 31-36 Red Cell Distribution Width 22 % High 10-15 Platelet Count 309 10^3/uL Normal 150-450 Mean Platelet Volume 7.8 fL Normal 7.4-10.4 Abs Neutrophils 4.2 10^3/uL Normal 1.5-7.7 Abs Lymphocytes 1.6 10^3/uL Normal 1.0-4.8 Abs Monocytes 0.6 10^3/uL Normal 0-0.8 Abs Eosinophils 0.4 10^3/uL Normal 0-0.6 Abs Basophils 0.1 10^3/uL Normal 0-0.2 Abs Nucleated RBC 0.0 10^3/uL Granulocyte % 61.3 % Lymphocyte % 23.6 % Monocyte % 8.4 % Eosinophil % 5.9 % Basophil % 0.8 % Nucleated Red Blood Cells % 0.1 Comp Metabolic 04/10/2019 [facility] Sodium 139 mmol/L Normal 135-145 Panel [address] [place] [address] [phone] Potassium 4.7 mmol/L Normal 3.5-5.0 Chloride 106 mmol/L Normal 101-111 Co2 Carbon Dioxide 26 mmol/L Normal 22-32 Anion Gap 7 mmol/L Normal 2-11 Glucose 105 mg/dL High 70-100 Blood Urea Nitrogen 6 mg/dL Normal 6-24 Creatinine 0.76 mg/dL Normal 0.51-0.95 BUN/Creatinine Ratio 7.9 Low 8-20 Calcium 9.4 mg/dL Normal 8.6-10.3 Total Protein 7.2 g/dL Normal 6.4-8.9 Albumin 4.3 g/dL Normal 3.2-5.2 Globulin 2.9 g/dL Normal 2-4 Albumin/Globulin Ratio 1.5 Normal 1-3 Total Bilirubin 0.20 mg/dL Normal 0.2-1.0 Alkaline Phosphatase 73 U/L Normal 34-104 Alt 25 U/L Normal 7-52 Ast 18 U/L Normal 13-39 Egfr Non- 83.1 >60 Egfr 100.5 >60 2 Laboratory test 04/10/2019 [facility] Vitamin B12 242 pg/mL Normal 180-914 3 finding [address] [place] [address] [phone] Methylmalonic Acid Mma 0.11 nmol/mL <=0.40 4 Ferritin 14.5 ng/mL Normal 11-307 5 Iron & Iron Binding 04/10/2019 [facility] Iron 51 g/dL Normal 50-[address] [place] [address] [phone] Unsaturated Iron Binding < 369 g/dL Total Iron Binding Capacity 384 g/dL Normal 250-450 Transferrin 274 mg/dL Normal 203-362 % Iron Saturation 13 % Low 15-55 Cell Morphology 04/10/2019 [facility] Microcytosis 1+ [address] [place] [phone] Anisocytosis 2+ Lipid Profile 01/26/2019 [facility] Triglycerides 216 mg/dL 6 (Trig/Chol/HDL) [address] [place] [phone] Cholesterol 131 mg/dL 7 HDL Cholesterol 33.4 mg/dL 8 LDL Cholesterol 54 mg/dL 9 Laboratory 01/26/2019 [facility] TSH (Thyroid 1.86 Normal 0.34 -5.60 test finding [address] [place] [address] Stim Horm) mcIU/[place] [address] [phone] Comp Metabolic 01/26/2019 [facility] Sodium 136 mmol/L Normal 135-[address] [place] [address] [phone] Potassium 4.6 mmol/L Normal 3.5-5.0 Chloride 105 mmol/L Normal 101-111 Co2 Carbon Dioxide 25 mmol/L Normal 22-32 Anion Gap 6 mmol/L Normal 2-11 Glucose 41 mg/dL Critical low 70-100 Blood Urea Nitrogen 9 mg/dL Normal 6-24 Creatinine 0.73 mg/dL Normal 0.51-0.95 BUN/Creatinine Ratio 12.3 Normal 8-20 Calcium 9.2 mg/dL Normal 8.6-10.3 Total Protein 7.2 g/dL Normal 6.4-8.9 Albumin 4.2 g/dL Normal 3.2-5.2 Globulin 3.0 g/dL Normal 2-4 Albumin/Globulin Ratio 1.4 Normal 1-3 Total Bilirubin 0.20 mg/dL Normal 0.2-1.0 Alkaline Phosphatase 83 U/L Normal 34-104 Alt 14 U/L Normal 7-52 Ast 11 U/L Low 13-39 Egfr Non- 87.4 >60 Egfr 105.8 >60 10 Urine Culture And 01/26/2019 [facility] Urine Culture SEE RESULT [address] [place] [address] [phone] Urinalysis Profile 01/26/2019 [facility] Urine Color Yellow [address] [place] [address] [phone] Urine Appearance Cloudy Urine Specific [place] 1.010 Normal 1.010-1.030 Urine pH 5.0 Normal 5-9 Urine Urobilinogen Negative Negative Urine Ketones Negative Negative Urine Protein Negative Negative Urine Leukocytes 1+ Abnormal Negative Urine Blood Negative Negative Urine Nitrite Positive Abnormal Negative Urine Bilirubin Negative Negative Urine Glucose Negative Negative Urine White Blood Cell 3+(>20/hpf) Abnormal Absent Urine Red Blood Cell Absent Absent Urine Bacteria 1+ Abnormal Absent Urine Squamous Epithelial Cell Present Abnormal Absent Laboratory test 01/26/2019 [facility] Pathologist Review (SEE NOTE) 12 [place] [address] [phone] Cell Morphology 01/26/2019 [facility] Macrocytosis 2+ [place] [address] [phone] Microcytosis 1+ Hypochromasia 1+ Polychromasia 1+ Anisocytosis 2+ Laboratory test 01/26/2019 [facility] Hemoglobin A1c 5.7 % High 4.0-5.[address] [facility] (Glyco HGB) [place] [address] [phone] Vitamin B12 And 01/26/2019 [facility] Vitamin B12 175 Low 180- [address] [facility] pg/[place] [address] [phone] Folic Acid (Folate) 13.38 ng/mL >3.99 Iron & Iron Binding 01/26/2019 [facility] Iron 20 g/dL Low 50-212 [place] [address] [phone] Unsaturated Iron Binding < 433 g/dL Total Iron Binding Capacity 448 g/dL Normal 250-450 Transferrin 320 mg/dL Normal 203-362 % Iron Saturation 4 % Low 15-55 Laboratory test 01/26/2019 [facility] Ferritin 10.5 Low 11- [address] ng/[place] [address] [phone] CBC Auto Diff 01/26/2019 [facility] White Blood 10.0 Normal 3.5-10.[address] Count 10^3/[place] [address] [phone] Red Blood Count 4.61 10^6/uL Normal 3.70-4.87 Hemoglobin 10.1 g/dL Low 12.0-16.0 Hematocrit 32 % Low 35-47 Mean Corpuscular Volume 70 fL Low 80-97 15 Mean Corpuscular Hemoglobin 22 pg Low 27-31 Mean Corpuscular HGB Conc 31 g/dL Normal 31-36 Red Cell Distribution Width 25 % High 10-15 Platelet Count 380 10^3/uL Normal 150-450 Mean Platelet Volume 7.6 fL Normal 7.4-10.4 Abs Neutrophils 6.9 10^3/uL Normal 1.5-7.7 Abs Lymphocytes 1.8 10^3/uL Normal 1.0-4.8 Abs Monocytes 0.8 10^3/uL Normal 0-0.8 Abs Eosinophils 0.5 10^3/uL Normal 0-0.6 Abs Basophils 0.1 10^3/uL Normal 0-0.2 Abs Nucleated RBC 0.0 10^3/uL Granulocyte % 68.9 % Lymphocyte % 17.9 % Monocyte % 8.1 % Eosinophil % 4.5 % Basophil % 0.6 % Nucleated Red Blood Cells % 0.1 Order 01/12/2019 [employer] In[employer] In-House EKG viewed by Dr. Mandujano CBC Auto Diff 01/09/2019 [facility] White Blood 5.8 10^3/uL Normal 3.5-10.[address] [place] [address] [phone] Red Blood Count 3.61 10^6/uL Low 3.70-4.87 Hemoglobin 7.3 g/dL Low 12.0-16.0 Hematocrit 23 % Low 35-47 Mean Corpuscular Volume 65 fL Low 80-97 Mean Corpuscular Hemoglobin 20 pg Low 27-31 Mean Corpuscular HGB Conc 31 g/dL Normal 31-36 Red Cell Distribution Width 20 % High 10-15 Platelet Count 271 10^3/uL Normal 150-450 Mean Platelet Volume 7.4 fL Normal 7.4-10.4 Abs Neutrophils 3.7 10^3/uL Normal 1.5-7.7 Abs Lymphocytes 1.2 10^3/uL Normal 1.0-4.8 Abs Monocytes 0.5 10^3/uL Normal 0-0.8 Abs Eosinophils 0.3 10^3/uL Normal 0-0.6 Abs Basophils 0.0 10^3/uL Normal 0-0.2 Abs Nucleated RBC 0.0 10^3/uL Granulocyte % 63.4 % Lymphocyte % 21.0 % Monocyte % 8.9 % Eosinophil % 5.9 % Basophil % 0.8 % Nucleated Red Blood Cells % 0.1 Basic Metabolic 01/09/2019 [facility] Sodium 137 mmol/L Normal 135-145 Panel [address] [place] [address] [phone] Potassium 3.6 mmol/L Normal 3.5-5.0 Chloride 107 mmol/L Normal 101-111 Co2 Carbon Dioxide 25 mmol/L Normal 22-32 Anion Gap 5 mmol/L Normal 2-11 Glucose 120 mg/dL High 70-100 Blood Urea Nitrogen 6 mg/dL Normal 6-24 Creatinine 0.69 mg/dL Normal 0.51-0.95 BUN/Creatinine Ratio 8.7 Normal 8-20 Calcium 8.2 mg/dL Low 8.6-10.3 Egfr Non- 93.3 >60 Egfr 112.9 >60 16 Liver Function 01/09/2019 [facility] Total Protein 6.3 g/dL Low 6.4-8.9 Panel [address] [place] [address] [phone] Albumin 3.6 g/dL Normal 3.2-5.2 Globulin 2.7 g/dL Normal 2-4 Albumin/Globulin Ratio 1.3 Normal 1-3 Total Bilirubin 0.20 mg/dL Normal 0.2-1.0 Direct Bilirubin 0.00 mg/dL Low 0.03-0.18 Alkaline Phosphatase 68 U/L Normal 34-104 Alt 14 U/L Normal 7-52 Ast 11 U/L Low 13-39 Laboratory test 01/09/2019 [facility] Lipase 22 U/L Normal 11.0-82.0 finding [address] [place] [address] [phone] HCG < 0.60 mIU/mL 17 CBC Auto 01/09/2019 [facility] White Blood 6.8 10^3/uL Normal 3.5-10.[address] [place] [address] [phone] Red Blood Count 3.86 10^6/uL Normal 3.70-4.87 Hemoglobin 7.8 g/dL Low 12.0-16.0 Hematocrit 25 % Low 35-47 Mean Corpuscular Volume 65 fL Low 80-97 Mean Corpuscular Hemoglobin 20 pg Low 27-31 Mean Corpuscular HGB Conc 31 g/dL Normal 31-36 Red Cell Distribution Width 20 % High 10-15 Platelet Count 290 10^3/uL Normal 150-450 Mean Platelet Volume 7.6 fL Normal 7.4-10.4 Abs Neutrophils 3.8 10^3/uL Normal 1.5-7.7 Abs Lymphocytes 1.9 10^3/uL Normal 1.0-4.8 Abs Monocytes 0.6 10^3/uL Normal 0-0.8 Abs Eosinophils 0.4 10^3/uL Normal 0-0.6 Abs Basophils 0.0 10^3/uL Normal 0-0.2 Abs Nucleated RBC 0.0 10^3/uL Granulocyte % 56.3 % Lymphocyte % 28.7 % Monocyte % 8.3 % Eosinophil % 6.2 % Basophil % 0.5 % Nucleated Red Blood Cells % 0.0 Laboratory test 01/09/2019 [facility] Pathologist Review (SEE NOTE) [address] [place] [address] [phone] Stool Occult 01/09/2019 [facility] Stool Occult SEE RESULT 19 Blood, Screen [address] Blood, [place] [address] [phone] Laboratory test 10/27/2018 [facility] Stool Calprotectin <15.6 g/G [address] [place] [address] [phone] Stool Culture SEE RESULT BELOW 21 Helico Pylori Antigen- Stool Negative Negative 22 Ova & Parasites Full 10/27/2018 [facility] Parasitic See Comment [address] Exam, [place] [address] [phone] Cryptosporidium And 10/27/2018 [facility] Giardia Negative 24 Giardia Ag [address] Antigen, [place] [address] [phone] Cryptosporidium Ag, F Negative 25 1 Copy Result to: BEE SAGLADO ([id number]) 2 Because ethnic data is not always readily available, this report includes an eGFR for both -Americans and non- Americans. The National Kidney Disease Education Program (NKDEP) does not endorse the use of the MDRD equation for patients that are not between the ages of 18 and 70, are , have extremes of body size, muscle mass, or nutritional status, or are non- or non-. According to the National Kidney Foundation, irrespective of diagnosis, the stage of the disease is based on the level of kidney function: Stage Description GFR(mL/min/1.73 m(2)) 1 Kidney damage with normal or decreased GFR 90 2 Kidney damage with mild decrease in GFR 60-89 3 Moderate decrease in GFR 30-59 4 Severe decrease in GFR 15-29 5 Kidney failure <15 (or dialysis) 3 Normal Range 180 to 914 Indeterminate Range 145 to 180 Deficient Range <145 4 ADDITIONAL INFORMATION This test was developed and its performance characteristics determined by [facility] in a manner consistent with CLIA requirements. This test has not been cleared or approved by the U.S. Food and Drug Administration. Test Performed by: [place] [address] Setup Operator: Octaviano Jay M.D. Ph.D.; CLIA# [id number] 5 Copy Result to: BEE SALGADO ([id number]) 6 Desirable: <150 Borderline High: 150-199 High: 200-499 Very High: >500 7 Desirable: <200 Borderline High: 200-239 High: >239 8 Low: <40 Desirable: 40-60 High: >60 9 Desirable: <100 Near Optimal: 100-129 Borderline High: 130-159 High: 160-189 Very High: >189 10 Because ethnic data is not always readily available, this report includes an eGFR for both -Americans and non- Americans. The National Kidney Disease Education Program (NKDEP) does not endorse the use of the MDRD equation for patients that are not between the ages of 18 and 70, are , have extremes of body size, muscle mass, or nutritional status, or are non- or non-. According to the National Kidney Foundation, irrespective of diagnosis, the stage of the disease is based on the level of kidney function: Stage Description GFR(mL/min/1.73 m(2)) 1 Kidney damage with normal or decreased GFR 90 2 Kidney damage with mild decrease in GFR 60-89 3 Moderate decrease in GFR 30-59 4 Severe decrease in GFR 15-29 5 Kidney failure <15 (or dialysis) 11 SEE RESULT BELOW Name: SALEEMFARTUN : [address]: Chantel Upton MD Acct: [id number] Unit: [id number] AGE: 43 Location: [facility] Re01/26/19 SEX: F Status: REG REF SPEC: [id number] BOOKER: 01/26/[address]: Bee Salgado MD REQ: [id number] RECD: 01/26/19 STATUS: COMP _ SOURCE: URINE SPDESC: ORDERED: Urine Culture Procedure Result Reported Site Urine Culture Final 01/28/19- 09 ML Organism 1 KLEBSIELLA PNEUMONIAE [place] Count >100,000 (Many) CFU/ML 1. KLEBSIELLA PNEUMONIAE M.I.C. RX --------- ------ Ampicillin R Cefazolin <=4 S Cefepime <=1 S Ceftriaxone <=1 S Ciprofloxacin <=0.25 S Gentamicin <=1 S Levofloxacin <=0.12 S Meropenem <=0.25 S Nitrofurantoin 64 I Tetracycline <=1 S Pipercillin/Tazobactam <=4 S Trimethoprim/Sulfamethoxazole <=20 S Amoxicillin/Clavulanic Acid <=2 S Aztreonam <=1 S Contact the Microbiology Department for any additional antibiotic reporting. * ML - Main Lab . END OF REPORT DEPARTMENT OF PATHOLOGY, [address] [place] [address] Inocencio Jernigan M.D. Director [facility] # [id number] 12 Microcytic anemia with red cell indices suggestive of iron deficiency. Additional studies as clinically warranted. Reviewed by Dr. Jernigan 13 Therapeutic target for the treatment of diabetes mellitus patients is <7% HBA1C, and in selective patients <6.0%. Please refer to [place] [employer] diabetic care guidelines for further information. 14 Normal Range 180 to 914 Indeterminate Range 145 to 180 Deficient Range <145 15 Consistent with Previous Results Reported on 01/09/19. 16 Because ethnic data is not always readily available, this report includes an eGFR for both -Americans and non- Americans. The National Kidney Disease Education Program (NKDEP) does not endorse the use of the MDRD equation for patients that are not between the ages of 18 and 70, are , have extremes of body size, muscle mass, or nutritional status, or are non- or non-. According to the National Kidney Foundation, irrespective of diagnosis, the stage of the disease is based on the level of kidney function: Stage Description GFR(mL/min/1.73 m(2)) 1 Kidney damage with normal or decreased GFR 90 2 Kidney damage with mild decrease in GFR 60-89 3 Moderate decrease in GFR 30-59 4 Severe decrease in GFR 15-29 5 Kidney failure <15 (or dialysis) 17 <5.0 Negative 5.0 - 25.0 Indeterminate (Repeat testing recommended after 72 hours) >25.0 Positive Perimenopausal women can display HCG levels of up to 20 mIU/mL 18 Microcytic anemia. Reviewed by Rhonda Pisano MD 19 SEE RESULT BELOW Name: FARTUN SALEEM : [address]: Fernando Basurto MD Acct: [id number] Unit: [id number] AGE: 43 Location: ED Re01/09/19 SEX: F Status: REG ER SPEC: [id number] BOOKER: 01/09/19 [facility] DR: Fernando Basurto MD REQ: [id number] RECD: 01/09/19 STATUS: LORNA LEDBETTER DR: Bee Salgado MD _ SOURCE: STOOL SPDESC: ORDERED: Occult Bl, Scn Procedure Result Reported Site Stool Occult Blood (1) Final 01/09/19- 707 ML Stool Occult Blood Negative Collection Date (1) 01/09/19 * ML - Main Lab . END OF REPORT DEPARTMENT OF PATHOLOGY, [address] [place] [address] Inocencio Jernigan M.D. Director [facility] # [id number] 20 REFERENCE VALUE <=50.0 (Normal) Test Performed by: [facility] [address] [facility], [place] [address] 21 SEE RESULT BELOW Name: FARTUN SALEEM Davion : [address]: Elissa Mae NP Acct: [id number] Unit: [id number] AGE: 43 Location: [facility] Re10/29/18 SEX: F Status: REG REF SPEC: [id number] BOOKER: 10/27/18 [facility] DR: Elissa Mae NP REQ: [id number] RECD: 10/30/18 STATUS: COMP _ SOURCE: STOOL SPDESC: ORDERED: Stool Culture Procedure Result Reported Site Stool Culture Final 11/01/18- 1435 ML Organism 1 BACILLUS SP (NON-ANTHRACIS) Result No additional pathogens isolated BACILLUS SPECIES PRESUMPTIVE IDENTIFICATION OF BACILLUS CEREUS GROUP Testing for Salmonella, Shigella, Aeromonas, Plesiomonas, Yersinia and Campylobacter are included in a Stool Culture. Vibrio spp not routinely tested for in a stool culture. If testing is desired, please request specifically when placing test order. Sensitivities not routinely performed on stool isolates, as antibiotics may prolong the carriage rate of bacteria. Please contact the microbiology lab if sensitivities are required. Stool Specimen Description Final 10/30/18- 1558 ML Stool Color Brown Stool Form Formed Stool Consistency Firm Shiga Toxin 1 2 Final 10/31/18- 1110 ML Organism 1 Negative Shiga Toxin 1 2 CONTINUED ON NEXT PAGE DEPARTMENT OF PATHOLOGY, [address] [place] [address] Inocencio Jernigan M.D. Director [facility] # [id number] Patient: FARTUN SALEEM [id number] (Continued) Specimen: 19:[id number] Collected: 10/27/18-1899 Received: 10/30/18-140 (Continued) Procedure Result Reported Site Shiga Toxin 1 2 Final (continued) 10/31/18- 599 Immunochromatographic Assay * - [facility] . END OF REPORT DEPARTMENT OF PATHOLOGY, [address] [place] [address] Inocencio Jernigan M.D. Director [facility] # [id number] 22 Test Performed by: [place] [address] 23 SOURCE: STOOL PARASITIC EXAMINATION FINAL No parasites seen. Cryptosporidium, Cyclospora, and microsporidia are not readily detected by this method. Single negative specimen does not rule out parasitic infection. Test Performed by: [place] [address] 24 Reference Value - Negative Test Performed by: [facility] [address] [facility] [address] 25 Reference Value: Negative Test Performed by: [facility] [address] [place] [address] Procedures Date Code Description Status 02/13/2019 95144 Use Of ECHO Contrast Agent During Stress ECHO Completed 02/13/2019 81194 Stress ECHO Interpretation/Report Hospital Completed 02/13/2019 46264 Treadmill Interp/Report Only Completed 02/13/2019 10013 Stress Test Supervsn W/Out I/R Completed 01/12/2019 34908 EKG Tracing & Interpretation Completed 11/21/2018 14405 Inject/Drain Joint/Bursa Small W/O US Completed 11/14/2018 [id number] Diabetic Retinal Eye Exam Completed 05/18/2018 80362554 Mammogram Completed 03/10/2017 492221957 Diabetic Retinal Eye Exam Completed 08/20/2016 23688342 Mammogram Completed 11/21/2015 405806103 Diabetic Retinal Eye Exam Completed 09/20/2014 16597777 Mammogram Completed Medical Devices Description No Information Available Encounters Type Date Location Provider Dx Diagnosis Office Visit 04/10/2019 [facility] Wilfredo Shore NP D64.9 Anemia, unspecified 10:00a Services Of [facility] G47.33 Obstructive sleep apnea (adult) (pediatric) G43.009 Migraine w/o aura, not intractable, w/o status migrainosus Office Visit 03/19/2019 [facility] And Lydia G47.33 Obstructive sleep 3:00p Sleep Services Of TRACY Caldwell apnea (adult) [facility] (pediatric) F17.210 Nicotine dependence, cigarettes, uncomplicated J45.909 Unspecified asthma, uncomplicated Office Visit 02/13/2019 [facility] Gastroenterology Elissa D64.9 Anemia, 2:00p Carmelita [employer]ING [employer] unspecified Z79.84 MCC (current) use of oral hypoglycemic drugs Office Visit 02/06/2019 [facility] Internal Medicine Chantel Upton, E16.1 Other 11:00a - Graeme BEDOLLA hypoglycemia Office Visit 02/02/2019 [facility] Gastroenterology Elissa D64.9 Anemia, 11:15a Carmelita [employer] unspecified Z79.84 MCC (current) use of oral hypoglycemic drugs E11.9 Type 2 diabetes mellitus without complications F17.210 Nicotine dependence, cigarettes, uncomplicated Office Visit 01/26/2019 11:40a [facility] Internal Bee Salgado, D64.9 Anemia, Medicine - Marciaob unspecified R10.12 Left upper quadrant pain E11.9 Type 2 diabetes mellitus without complications Office Visit 01/15/2019 1:00p Pulmonology And Lydia R06.02 Shortness of Sleep Services Of Javi, TRACY breath [facility] F17.210 Nicotine dependence, cigarettes, uncomplicated J45.909 Unspecified asthma, uncomplicated G47.33 Obstructive sleep apnea (adult) (pediatric) R53.83 Other fatigue Office Visit 01/12/2019 2:20p [facility] Internal Alysia Z01.818 Encounter for other Medicine - DO Delbert preprocedural Suite R examination G56.01 Carpal tunnel syndrome, right upper limb D64.9 Anemia, unspecified R07.9 Chest pain, unspecified Office Visit 01/08/2019 10:00a [facility] Wilfredo Shore, G56.01 Carpal tunnel Services Of [facility] SW[employer]MING [employer] syndrome, right upper limb G43.009 Migraine w/o aura, not intractable, w/o status migrainosus Office Visit 12/19/2018 10:15a [facility] Pito G56.01 Carpal tunnel at Perla Nieto MD syndrome, right upper limb 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, r hand Office Visit 12/12/2018 2:00p [facility] Internal Chantel Won, I10 Essential ( primary) Medicine - Graeme BEDOLLA hypertension E11.9 Type 2 diabetes mellitus without complications F33.1 Major depressive disorder, recurrent, moderate E03.9 Hypothyroidism, unspecified Office Visit 12/12/2018 10:15a [facility] Gastroenterology Elissa Mae, E66.01 Morbid SW[employer]MING [employer]ACH (severe) obesity due to excess calories R15.2 Fecal urgency Office Visit 11/21/2018 10:45a [facility] Pito G56.01 Carpal tunnel at Perla Nieto MD syndrome, right upper limb 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, r hand Office 10/30/2018 [facility] at [facility] Clarita, M25.372 Other Visit 2:30p Perla BEDOLLA instability, left ankle Office 10/27/2018 [facility] Gastroenterology Elissa Mae, R19.7 Diarrhea, Visit 10:45a [employer] unspecified R15.2 Fecal urgency Assessments Date Code Description Provider 04/26/2019 E11.9 Type 2 diabetes mellitus without Jordyn Smith M.D. complications 04/26/2019 N92.0 Excessive and frequent menstruation with Jordyn Smith M.D. regular cycle 04/26/2019 Z23 Encounter for immunization Jordyn Smith M.D. 04/10/2019 D64.9 Anemia, unspecified Wilfredo Shore, TRACY 04/10/2019 G47.33 Obstructive sleep apnea (adult) (pediatric) Wilfredo Shore, TRACY 04/10/2019 G43.009 Migraine without aura, not intractable, Wilfredo Shore NP without status migrainosus 03/19/2019 G47.33 Obstructive sleep apnea (adult) (pediatric) Lydia Caldwell NP 03/19/2019 F17.210 Nicotine dependence, cigarettes, Lydia Caldwell NP uncomplicated 03/19/2019 J45.909 Unspecified asthma, uncomplicated Lydia Caldwell NP 02/13/2019 D64.9 Anemia, unspecified Elissa Mae, SWIMMING COACH 02/13/2019 Z01.810 Encounter for preprocedural cardiovascular Lan Farnsworth M.D. examination 02/13/2019 Z79.84 [facility] (current) use of oral Elissa Mae, SWIMMING COACH hypoglycemic drugs 02/06/2019 E16.1 Other hypoglycemia Chantel Upton MD 02/02/2019 D64.9 Anemia, unspecified Elissa Mae, SWIMMING COACH 02/02/2019 Z79.84 MCC (current) use of oral Elissa Mae, SWIMMING COACH hypoglycemic drugs 02/02/2019 E11.9 Type 2 diabetes mellitus without Elissa Mae, SW[employer]ING [employer] complications 02/02/2019 F17.210 Nicotine dependence, cigarettes, Elissa Mae [employer]ING [employer] uncomplicated 01/26/2019 D64.9 Anemia, unspecified Bee Salgado MD 01/26/2019 R10.12 Left upper quadrant pain Bee Salgado MD 01/26/2019 E11.9 Type 2 diabetes mellitus without Bee Salgado MD complications 01/15/2019 R06.02 Shortness of breath Lydia Caldwell NP 01/15/2019 F17.210 Nicotine dependence, cigarettes, Lydia Caldwell, [employer]MING [employer]ACH uncomplicated 01/15/2019 J45.909 Unspecified asthma, uncomplicated Lydia Boggsssner, SWIMMING COACH 01/15/2019 G47.33 Obstructive sleep apnea (adult) (pediatric) Lydia Mazariegosner, SW[employer]MING COACH 01/15/2019 R53.83 Other fatigue Lydia Boggsssner, TRACY 01/12/2019 Z01.818 Encounter for other preprocedural Alysia Mandujano, DO examination 01/12/2019 G56.01 Carpal tunnel syndrome, right upper limb Alysia Senwalter, DO 01/12/2019 D64.9 Anemia, unspecified Alysia Senner, DO 01/12/2019 R07.9 Chest pain, unspecified Alysia Senner, DO 01/08/2019 G56.01 Carpal tunnel syndrome, right upper limb Wilfredo Shore, TRACY 01/08/2019 G43.009 Migraine without aura, not intractable, Wilfredo Shore NP without status migrainosus 12/19/2018 G56.01 Carpal tunnel syndrome, right upper limb Pito Nieto MD 12/19/2018 M18.11 Unilateral primary osteoarthritis of [place] 12/12/2018 E66.01 Morbid (severe) obesity due to excess Elissa Mae NP calories 12/12/2018 I10 Essential (primary) hypertension Chantel Upton MD 12/12/2018 R15.2 Fecal urgency Elissa Mae NP 12/12/2018 E11.9 Type 2 diabetes mellitus without Chantel Upton MD complications 12/12/2018 F33.1 Major depressive disorder, recurrent, Chantel Upton MD moderate 12/12/2018 E03.9 Hypothyroidism, unspecified Chantel Upton MD 11/21/2018 G56.01 Carpal tunnel syndrome, right upper limb Pito Nieto MD 11/21/2018 M18.11 Unilateral primary osteoarthritis of [place] 10/30/2018 M25.372 Other instability, left ankle João Otto MD 10/27/2018 R19.7 Diarrhea, unspecified Elissa Mae NP 10/27/2018 R15.2 Fecal urgency Elissa Mae NP Plan of Treatment Future Appointment(s):09/26/2019 10:00 am - Bee Salgado MD at [facility]2019 10:00 am - Lan Farnsworth M.D. at [facility]10/09/2019 10:00 am - Yuriy Diamond N.P. at [facility]07/23/2019 10:30 am - Lydia Caldwell NP at [facility]06/15/2019 10:15 am - Elissa Mae NP at [facility] [id number]/05/2019 - Jordyn Smith M.D.E11.9 Type 2 diabetes mellitus without complicationsNew Labs:Hemoglobin A1c (Glyco HGB), Ordered: 10/08Comments:stop glipizideFollow up:[address] Trevizo92.0 Excessive and frequent menstruation with regular cycleReferral:Lydia Deleon MD, administrative assistant coordinator/ Phys/[id number] Encounter for immunizationImmunizations/Injections:Influenza Virus Vaccine, Quadrivalent, Split, Preservative Free Goals 04/26/2019 - Jordyn Smith M.D.E11.9 Type 2 diabetes mellitus without complicationsGoal Hemoglobin A1c is less than 7.0%. Goal Blood pressure is less than 130/85. Goal LDL (bad cholesterol) is less than 100. Functional Status Description No Information Available Mental Status Description No Information Available Referrals Refer to Dr Reason for Referral Status Appt Date Lydia Deleon MD Created [address], [address] [place], [place] [id number] [phone] Lan Farnsworth MD Sent 04/25/2019 [facility] [place], [place] [id number] [phone] Elissa Mae NP Sent 01/23/2019 [address] [place] [address] [phone]
--- OUTSIDE RECORDS SUMMARY | 2019-04-26 17:52 | XMS REPORT | Continuity of Care Document ---
:1975 External Reference #:[id number] Author Name Lydia Caldwell NP (transmitted by agent of provider Henny Bourgeois) Address [address] [facility], [address] [place] [id number] Care Team Providers Name Role Phone Steve Doran MD - Ophthalmology Care Team Information Bods Developer Lydia Weaver M.D. - Surgery of Care Team Information Bods Developer [phone] [facility] Healthy Living - Care Team Information Bods Developer Director Engineering Pito Nieto MD - Hand Surgery Care Team Information Bods Developer Allyn Wilkinson M.D. - Family Medicine Care Team Information Bods Developer Problems Active Problems Provider Date Asthma without [...] Comments Sex Unknown ETOH Use Occasionally consumes once or twice a alcohol week, 6-7 beers each time Recreational Drug Use Never Used Drugs Tobacco Use Start: Unknown Light tobacco smoker (10 or fewer cigarettes/day) Smoking Status Reviewed: 03/19/19 Light tobacco smoker (10 or fewer cigarettes/day) Exercise Type/Frequency Does not exercise Allergies, Adverse Reactions, Alerts Active Allergies Reaction Severity Comments Date Morphine 06/15/2010 Oxycodone 06/15/2010 Latex 02/28/2013 Bleach Contact dermatitis 07/16/2016 Milk Fat, Cow upset GI Mild 01/08/2019 Medications Active Medications SIG Qnty Indications Ordering Date Provider Propranolol HCL 1 by mouth twice 60tabs Other Ordering 03/19/2019 20mg a day Provider Tablets Glipizide XL Take one tablet 90tabs E16.1 Chantel Upton MD 02/06/2019 5mg daily Tablets ER 24HR Ciprofloxacin HCL 1 by mouth twice 14tabs Chantel Upton MD 01/31/2019 250mg a day Tablets Iron 1 by mouth 2 60tabs D64.9 Allyn Wilkinson MD 01/26/2019 325(65Fe) mg x/day, with food Tablets and Vitamin C Vitamin C 1 by mouth twice 60caps D64.9 Allyn Wilkinson MD 01/26/2019 500mg a day, with iron Capsules Nortriptyline HCL Take one cap by 30caps Kvng Cintron 01/08/2019 50mg mouth at night. Jarvis Leon Capsules Glipizide Take 1 Tablet By 30tabs Allyn Wilkinson MD 12/08/2018 10mg Tablets Mouth Every Day Cpap Supplies Pls provide G47.33 Yuni Chapman, 05/12/2018 necessary cpap MD supplies, mask to fit, tubing, head gear, filters True Metrix Meter for testing daily 1units Avtar Molina 05/04/2018 Jarvis Hankins,FACP W/Device Kit True Metrix Self test blood sugars 300units Allyn Wilkinson MD 05/04/2018 Monitoring Blood once a day, as Glucose Strips directed Strips True Metrix Lancets 100units Avtar Molina 05/04/2018 Jarvis Hankins,FACP Lancets 30G use 2 to 3 times 100units Chantel Upton MD 05/04/2018 30G Misc daily Metformin HCL take one tablet 60tabs R79.9 Chantel Upton MD 11/30/2017 1000mg by mouth twice a Tablets day Atorvastatin Calcium Take 1 Tablet By 30tabs E78.2 Allyn Wilkinson MD 2016 Mouth Everyday AT 20mg Tablets Bedtime Losartan Potassium take 1 tablet by 30tabs E11.9 Chantel Upton MD 2016 25mg mouth every day Tablets Synthroid take 1 tablet by 30tabs Allyn Wilkinson MD 11/20/2015 25mcg Tablets mouth every day Oxybutynin Chloride take 1 tablet by 30tabs Allyn Wilkinson MD 05/24/2014 ER mouth every day 10mg Tablets ER 24HR Trazodone HCL 2 or 3 by mouth 30tabs Jacinda Pichardo, 07/02/2013 100mg every night at M.D. Tablets bedtime Singulair take 1 tablet by 30tabs Allyn Wilkinson MD 04/24/2012 10mg Tablets mouth every day Lexapro 1 by mouth every 30tabs Jacinda Pichardo, 06/15/2010 20mg Tablets day M.D. Gabapentin 1 at bedtime 30capalecia Hernandez 06/15/2010 300mg Jarvis Mitchell Capsules Prazosin HCL two by mouth Unknown 1mg every evening Capsules Lexapro 1 by mouth every Unknown 10mg Tablets day with 20mg tab (rx'd by [facility]) History Medications Propranolol HCL Take one tab by 60tabs Kvng Leon, 01/08/2019 - 10mg mouth in the M.D. 03/19/2019 Tablets morning and at night. take with 20 mg tablet for a total of 30 mg. Medications Administered in Office Medication SIG Qnty Indications Ordering Provider Date Celestone 3 mg and 3mg Pito Nieto MD 11/21/2018 Injection Celestone 3 mg and 3mg Pito Nieto MD 06/27/2018 Injection PPD Allyn Wilkinson MD 04/24/2018 Injection Depomedrol 40MG Lydia Weaver M.D. 01/22/2016 Injection Depomedrol 40MG Lydia Weaver M.D. 01/22/2016 Injection Depomedrol 40MG Lydia Weaver M.D. 10/09/2015 Injection Immunizations CPT Code Status Date Vaccine Lot # [id number] Given 02/24/2018 Influenza Virus Vaccine, Quadrivalent, Split, Preservative Free 40520 Given 07/30/2016 Pneumonia Vaccine [id number] 60946 Given 01/26/2015 Influenza Virus Vaccine, Quadrivalent, Split, Preservative Free 93474 Given 10/24/2014 Tdap - Tetanus/Diptheria/Acellular Pertussis [id number] 56570 Given 01/24/2014 Flu Vaccine Split Virus Preservative Free For Indiv [id number] Older Vital Signs Date Vital Result Comment 03/19/2019 2:20pm Height 63.25 inches 5'3.25" Weight 215.00 lb Heart Rate 71 /min BP Systolic 100 mmHg BP Diastolic 58 mmHg O2 % BldC Oximetry 96 % BMI (Body Mass Index) 37.8 kg/m2 02/13/2019 1:54pm Height 63.25 inches 5'3.25" Weight 214.00 lb Heart Rate 60 /min BP Systolic 129 mmHg BP Diastolic 86 mmHg O2 % BldC Oximetry 96 % BMI (Body Mass Index) 37.6 kg/m2 Results Test Date Facility Test Result H/L Range Note CBC Auto 01/26/2019 [facility] White Blood 10.0 10^3/uL Normal 3.5-10.[address] [place] [address] [phone] Red Blood Count 4.61 10^6/uL Normal 3.70-4.87 Hemoglobin 10.1 g/dL Low 12.0-16.0 Hematocrit 32 % Low 35-47 Mean Corpuscular Volume 70 fL Low 80-97 1 Mean Corpuscular Hemoglobin 22 pg Low 27-31 [...] % Nucleated Red Blood Cells % 0.1 Laboratory test 01/26/2019 [facility] Ferritin 10.5 ng/mL Low 11-[address] [place] [address] [phone] Iron & Iron Binding 01/26/2019 [facility] Iron 20 g/dL Low 50-[address] [place] [address] [phone] Unsaturated Iron Binding < 433 g/dL Total Iron Binding Capacity 448 g/dL Normal 250-450 Transferrin 320 mg/dL Normal 203-362 % Iron Saturation 4 % Low 15-55 Vitamin B12 And 01/26/2019 [facility] Vitamin B12 175 pg/mL Low 180-914 2 Folate Serum [address] [place] [address] [phone] Folic Acid (Folate) 13.38 ng/mL >3.99 Laboratory test 01/26/2019 [facility] Hemoglobin A1c 5.7 % High 4.0-5.6 [address] [place] [address] (Glyco HGB) [place] [address] [phone] Cell Morphology 01/26/2019 [facility] Macrocytosis 2+ [address] [place] [address] [phone] Microcytosis 1+ Hypochromasia 1+ Polychromasia 1+ Anisocytosis 2+ Laboratory test 01/26/2019 [facility] Pathologist Review (SEE NOTE) [address] [place] [address] [phone] Urinalysis 01/26/2019 [facility] Urine Color Yellow Profile [address] [place] [address] [phone] Urine Appearance Cloudy Urine Specific [place] 1.010 Normal 1.010-1.030 Urine pH 5.0 Normal [...] Urine Squamous Epithelial Cell Present Abnormal Absent Urine Culture And 01/26/2019 [facility] Urine SEE RESULT [address] [place] [place] [address] [phone] Comp Metabolic 01/26/2019 [facility] Sodium 136 mmol/L Normal 135-[address] [place] [address] [phone] Potassium 4.6 mmol/L Normal 3.5-5.0 Chloride 105 [...] Egfr Non- 87.4 >60 Egfr 105.8 >60 6 Laboratory 01/26/2019 [facility] TSH (Thyroid 1.86 Normal 0.34 -5.60 test finding [address] Stim Horm) mcIU/[place] [address] [phone] Lipid Profile 01/26/2019 [facility] Triglycerides 216 mg/dL 7 (Trig/Chol/HD [address] L) [place] [address] [phone] Cholesterol 131 mg/dL 8 HDL Cholesterol 33.4 mg/dL 9 LDL Cholesterol 54 mg/dL 10 Order 01/12/2019 [facility] In-House EKG viewed by Dr. Mandujano CBC Auto Diff 01/09/2019 [facility] White Blood 5.8 10^3/uL Normal 3.5-10.[address] [place] [address] [phone] Red Blood Count 3.61 10^6/uL Low 3.70-4.87 [...] Blood Cells % 0.1 Basic Metabolic 01/09/2019 [facility] Sodium 137 mmol/L Normal 135-[address] [place] [address] [phone] Potassium 3.6 mmol/L Normal 3.5-5.0 Chloride 107 mmol/L Normal 101-111 Co2 Carbon Dioxide 25 mmol/L Normal 22-32 Anion Gap 5 mmol/L Normal 2-11 Glucose 120 mg/dL High 70-100 Blood Urea Nitrogen 6 mg/dL Normal 6-24 Creatinine 0.69 mg/dL Normal 0.51-0.95 BUN/Creatinine Ratio 8.7 Normal 8-20 Calcium 8.2 mg/dL Low 8.6-10.3 Egfr Non- 93.3 >60 Egfr 112.9 >60 11 Liver Function 01/09/2019 [facility] Total Protein 6.3 g/dL Low 6.4-8.[address] [place] [address] [phone] Albumin 3.6 g/dL Normal 3.2-5.2 Globulin 2.7 g/dL Normal 2-4 Albumin/Globulin Ratio 1.3 Normal 1-3 Total Bilirubin 0.20 mg/dL Normal 0.2-1.0 Direct Bilirubin 0.00 mg/dL Low 0.03-0.18 Alkaline Phosphatase 68 U/L Normal 34-104 Alt 14 U/L Normal 7-52 Ast 11 U/L Low 13-39 Laboratory test 01/09/2019 [facility] Lipase 22 U/L Normal 11.0-82.[address] [place] [address] [phone] HCG < 0.60 mIU/mL 12 CBC Auto 01/09/2019 [facility] White Blood 6.8 10^3/uL Normal 3.5-10.[address] [place] [address] [phone] Red Blood Count 3.86 10^6/uL Normal 3.70-4.87 [...] Blood Cells % 0.0 Laboratory test 01/09/2019 [facility] Pathologist Review (SEE NOTE) [address] [place] [address] [phone] Stool Occult 01/09/2019 [facility] Stool Occult SEE RESULT 14 Blood, Screen [address] Blood, [place] [address] [phone] Laboratory test 10/27/2018 [facility] Stool Calprotectin <15.6 g/G [address] [place], [place] [address] [phone] Stool Culture SEE RESULT BELOW 16 Helico Pylori Antigen- Stool Negative Negative 17 Ova & Parasites Full 10/27/2018 [facility] Parasitic See Comment [address] Exam, [place] [address] [phone] Cryptosporidium And 10/27/2018 [facility] Giardia Negative 19 Giardia Ag [address] Antigen, [place] [address] [phone] Cryptosporidium Ag, F Negative 20 Laboratory test 10/25/2018 [facility] In House Hemoglobin A1c 5.5% 5-7 finding Urine Microalbumin 10/25/2018 [facility] Ur Microalbumin < 15.0 mg/L [address] (mg/L) [place] [address] [phone] Urine Creatinine 66.90 mg/dL Urine Microalbumin/Creatinine TNP <31 22 1 Consistent with Previous Results Reported on 01/09/19. 2 Normal Range 180 to 914 Indeterminate Range 145 to 180 Deficient Range <145 3 Therapeutic target for the treatment of diabetes mellitus patients is <7% HBA1C, and in selective patients <6.0%. Please refer to [place] [employer] diabetic care guidelines for further information. 4 Microcytic anemia with red cell indices suggestive of iron deficiency. Additional studies as clinically warranted. Reviewed by Dr. Jernigan 5 SEE RESULT BELOW Name: FARTUN SALEEM : [address]: Chantel Upton MD Acct: [id number] Unit: [id number] AGE: 43 Location: [facility] Re01/26/19 SEX: F Status: REG REF SPEC: [id number] BOOKER: 01/26/[address]: Allyn Wilkinson MD REQ: [id number] RECD: 01/26/19 STATUS: COMP _ SOURCE: URINE SPDESC: ORDERED: Urine Culture Procedure Result Reported Site Urine Culture Final 01/28/19- 09 ML Organism 1 KLEBSIELLA PNEUMONIAE [place] Count >100,000 (Many) CFU/ML 1. KLEBSIELLA PNEUMONIAE [...] . END OF REPORT DEPARTMENT OF PATHOLOGY, [address] [place] [address] Inocencio Jernigan M.D. Director [facility] # [id number] Because ethnic data is not always readily [...] 15-29 5 Kidney failure <15 (or dialysis) 7 Desirable: <150 Borderline High: 150-199 High: 200-499 Very High: >500 8 Desirable: <200 Borderline High: 200-239 High: >239 9 Low: <40 Desirable: 40-60 High: >60 10 Desirable: <100 Near Optimal: 100-129 Borderline High: 130-159 High: 160-189 Very High: >189 11 Because ethnic data is not always readily [...] 15-29 5 Kidney failure <15 (or dialysis) 12 <5.0 Negative 5.0 - 25.0 Indeterminate (Repeat testing recommended after 72 hours) >25.0 Positive Perimenopausal women can display HCG levels of up to 20 mIU/mL 13 Microcytic anemia. Reviewed by Rhonda Pisano MD 14 SEE RESULT BELOW Name: FARTUN SALEEM Davion : [address]: Fernando Basurto MD Acct: [id number] Unit: [id number] AGE: 43 Location: ED Re01/09/19 SEX: F Status: REG ER SPEC: [id number] BOOKER: 01/09/19-[address]: Fernando Basurto MD REQ: [id number] RECD: 01/09/19 STATUS: LORNA LEDBETTER DR: Allyn Wilkinson MD _ SOURCE: STOOL SPDESC: ORDERED: Occult Bl, Scn Procedure Result Reported Site Stool Occult Blood (1) Final 01/09/19- 707 ML Stool Occult Blood Negative Collection Date (1) 01/09/19 * ML - Main Lab . END OF REPORT DEPARTMENT OF PATHOLOGY, [address] [place] [address] Inocencio Jernigan M.D. Director [facility] # [id number] REFERENCE VALUE <=50.0 (Normal) Test Performed by: [facility] [address] [place] [address] 16 SEE RESULT BELOW Name: FARTUN SALEEM : [address]: Elissa Mae NP Acct: [id number] Unit: [id number] AGE: 43 Location: [facility] Re10/29/18 SEX: F Status: REG REF SPEC: [id number] BOOKER: 10/27/[address]: Elissa Mae NP REQ: [id number] RECD: 10/30/18 STATUS: COMP _ SOURCE: STOOL [...] CONTINUED ON NEXT PAGE DEPARTMENT OF PATHOLOGY, [address] [place] [address] Inocencio Jernigan M.D. Director [facility] # [id number] Patient: FARTUN SALEEM Davion [id number] (Continued) Specimen: [id number] Collected: 10/27/18 Received: 10/30/18-140 (Continued) Procedure Result Reported Site Shiga Toxin 1 2 Final (continued) 10/31/18- 2050 Immunochromatographic Assay * ML - Main Lab . END OF REPORT DEPARTMENT OF PATHOLOGY, [address] [place] [address] Inocencio Jernigan M.D. Director [facility] # [id number] 17 Test Performed by: [address] [id number] 18 SOURCE: STOOL PARASITIC EXAMINATION FINAL No parasites seen. Cryptosporidium, Cyclospora, and microsporidia are not readily detected by this method. Single negative specimen does not rule out parasitic infection. Test Performed by: [address] [address] 19 Reference Value - Negative Test Performed by: [address] [address] 20 Reference Value: Negative Test Performed by: [address] [id number] 21 [id number] Unable to calculate due to low microalbumin Procedures Date Code Description Status 02/13/2019 62084 Use Of ECHO Contrast Agent During Stress ECHO Completed 02/13/2019 17292 Stress ECHO Interpretation/Report Hospital Completed 02/13/2019 25008 Treadmill Interp/Report Only Completed 02/13/2019 88130 Stress Test Supervsn W/Out I/R Completed 01/12/2019 27469 EKG Tracing & Interpretation Completed 11/21/2018 15930 Inject/Drain Joint/Bursa Small W/O US Completed 11/14/2018 [id number] Diabetic Retinal Eye Exam Completed 05/18/2018 55807702 Mammogram Completed 03/10/2017 198791719 Diabetic Retinal Eye Exam Completed 08/20/2016 50888647 Mammogram Completed 11/21/2015 863623972 Diabetic Retinal Eye Exam Completed 09/20/2014 55368913 Mammogram Completed Medical Devices Description No Information Available Encounters Type Date Location Provider Dx Diagnosis Office Visit 02/13/2019 [facility] Gastroenterology Elissa Mae, D64.9 Anemia, 2:00p DIRECTOR OF COMMUNITY LIFE unspecified Z79.84 [facility] (current) use of oral hypoglycemic drugs Office Visit 02/06/2019 [facility] Internal Medicine Chantel Won, E16.1 Other 11:00a - Ccmlittle BEDOLLA hypoglycemia Office Visit 02/02/2019 [facility] Gastroenterology Elissa D64.9 Anemia, 11:15a TRACY Mae unspecified Z79.84 [facility] (current) use of oral hypoglycemic drugs E11.9 Type 2 diabetes mellitus without complications F17.210 Nicotine dependence, cigarettes, uncomplicated Office Visit 01/26/2019 11:40a [facility] Internal Allyn Wilkinson, D64.9 Anemia, Medicine - Graeme BEDOLLA unspecified R10.12 Left upper quadrant pain E11.9 Type 2 diabetes mellitus without complications Office Visit 01/15/2019 1:00p Pulmonology And Lydia R06.02 Shortness of Sleep Services Of TRACY Caldwell breath [facility] F17.210 Nicotine dependence, cigarettes, uncomplicated J45.909 Unspecified asthma, uncomplicated G47.33 Obstructive sleep apnea (adult) (pediatric) R53.83 Other fatigue Office Visit 01/12/2019 2:20p [facility] Internal Alysia Z01.818 Encounter for other Medicine - DO Delbert preprocedural Suite R examination G56.01 Carpal tunnel syndrome, right upper limb D64.9 Anemia, unspecified R07.9 Chest pain, unspecified Office Visit 01/08/2019 10:00a [facility] Wilfredo Danikagreg, G56.01 Carpal tunnel Services [facility] DIRECTOR OF COMMUNITY LIFE syndrome, right upper limb G43.009 Migraine w/o aura, not intractable, w/o status migrainosus Office Visit 12/19/2018 10:15a [facility] Pito G56.01 Carpal tunnel at Perla Nieto MD syndrome, right upper limb 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, r hand Office Visit 12/12/2018 2:00p [facility] Internal Chantel Upton, I10 [facility] E11.9 Type 2 diabetes mellitus without complications F33.1 Major depressive disorder, recurrent, moderate E03.9 Hypothyroidism, unspecified Office Visit 12/12/2018 10:15a [facility] Gastroenterology Elissa Mae, E66.01 Morbid [employer] (severe) obesity due to excess calories R15.2 Fecal urgency Office Visit 11/21/2018 10:45a [facility] Pito G56.01 Carpal tunnel at Perla Nieto MD syndrome, right upper limb 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, r hand Office 10/30/2018 [facility] at [facility], M25.372 Other Visit 2:30p Perla BEDOLLA instability, left ankle Office 10/27/2018 [facility] Gastroenterology Elissa Mae, R19.7 Diarrhea, Visit 10:45a [employer] unspecified R15.2 Fecal urgency Office Visit 10/25/2018 11:20a [facility] Internal Chantel Upton, E11.9 Type 2 diabetes Medicine - mellitus without Ccmob complications M79.674 Pain in right toe(s) F33.1 Major depressive disorder, recurrent, moderate N39.46 Mixed incontinence R15.9 Full incontinence of feces I10 Essential (primary) hypertension S91.114D Lac w/o fb of right lesser toe(s) w/o damage to nail, subs Assessments Date Code Description Provider 03/19/2019 G47.33 Obstructive sleep apnea (adult) Lydia Caldwell NP (pediatric) 03/19/2019 F17.210 Nicotine dependence, cigarettes, Lydia Caldwell NP uncomplicated 03/19/2019 J45.909 Unspecified asthma, uncomplicated Lydia Caldwell NP 02/13/2019 D64.9 Anemia, unspecified Elissa Mae, [employer] 02/13/2019 Z01.810 Encounter for preprocedural cardiovascular Lan Farnsworth M.D. examination 02/13/2019 Z79.84 manager terminal (current) use of oral Elissa Mae, [employer] hypoglycemic drugs 02/06/2019 E16.1 Other hypoglycemia Chantel Upton MD 02/02/2019 D64.9 Anemia, unspecified Elissagayathri Mae, [employer] 02/02/2019 Z79.84 manager terminal (current) use of oral Elissa Mae, [employer] hypoglycemic drugs 02/02/2019 E11.9 Type 2 diabetes mellitus without Elissa Mae, [employer] complications 02/02/2019 F17.210 Nicotine dependence, cigarettes, Elissa Mae NP uncomplicated 01/26/2019 D64.9 Anemia, unspecified Allyn Wilkinson MD 01/26/2019 R10.12 Left upper quadrant pain Allyn Wilkinson MD 01/26/2019 E11.9 Type 2 diabetes mellitus without Allyn Wilkinson MD complications 01/15/2019 R06.02 Shortness of breath Lydia Caldwell NP 01/15/2019 F17.210 Nicotine dependence, cigarettes, Lydia Caldwell NP uncomplicated 01/15/2019 J45.909 Unspecified asthma, uncomplicated Lydia Caldwell, TRACY 01/15/2019 G47.33 Obstructive sleep apnea (adult) Lydia Caldwell NP (pediatric) 01/15/2019 R53.83 Other fatigue Lydia Caldwell NP 01/12/2019 Z01.818 Encounter for other preprocedural Alysia Senner, DO examination 01/12/2019 G56.01 Carpal tunnel syndrome, right upper limb Alysia Senner, DO 01/12/2019 D64.9 Anemia, unspecified Alysia Senner, DO 01/12/2019 R07.9 Chest pain, unspecified Alysia Senner, DO 01/08/2019 G56.01 Carpal tunnel syndrome, right upper limb Wilfredo Shore, TRACY 01/08/2019 G43.009 Migraine without aura, not intractable, Wilfredo Shore NP without status migrainosus 12/19/2018 G56.01 Carpal tunnel syndrome, right upper limb Pito Nieto MD 12/19/2018 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 ifeanyi Reeceometacaabelardo j 12/12/2018 E66.01 Morbid (severe) obesity due to [...] MD 11/21/2018 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 alia Reece 10/30/2018 M25.372 Other instability, left ankle João Otto MD 10/27/2018 R19.7 Diarrhea, unspecified Elissa Mae NP 10/27/2018 R15.2 Fecal urgency Elissa Mae NP 10/25/2018 E11.9 Type 2 diabetes mellitus without Chantel Upton MD complications 10/25/2018 M79.674 Pain in right toe(s) Chantel Upton MD 10/25/2018 F33.1 Major depressive disorder, recurrent, Chantel Upton MD moderate 10/25/2018 N39.46 Mixed incontinence Chantel Upton MD 10/25/2018 R15.9 Full incontinence of feces Chantel Upton MD 10/25/2018 I10 Essential (primary) hypertension Chantel Upton MD 10/25/2018 S91.114D [place] w/o fb of right lesser toe(s) w/o Chantel Upton MD damage to nail, subs Plan of Treatment Future Appointment(s):07/23/2019 10:30 am - Lydia Caldwell NP at [facility]04/27/2019 10:40 am - Allyn Wilkinson MD at [facility] 10:00 am - Wilfredo Shore NP at [facility]06/15/2019 10:15 am - Elissa Mae NP at [facility] Aoevytgaynxjnrdu42/28/2019 - Lydia Caldwell NPG47.33 Obstructive sleep apnea (adult) (pediatric)Follow up:4 monthsRecommendations:You have been doing a great job using your CPAP almost nightly for the past few weeks. Please continue this pattern. Your sleep apnea is severe, and it is very important that you treat it. Untreated sleep apnea could lead to high blood pressure, irregular heart rhythms, heart attacks, or strokes. Ifyou have difficulty with your equipment, or need to replace your mask or hoses, please contact your homecare agency. If you have any further questions, please call the [facility] at [phone] If you have any sleepiness while driving you MUST avoid operating a vehicle or machinery. If you feel tired while driving caul puller and take a nap or switch drivers. If you know you are sleepy and need to go somewhere, arrange for a ride or use public transportation. It is very important to notrisk your safety or the safety of others.F17.210 Nicotine dependence, cigarettes, uncomplicatedRecommendations:Please strongly consider quitting. If you need any help, please contact our office.J45.909 Unspecified asthma, uncomplicated Functional Status Description No Information Available Mental Status Description No Information Available Referrals Refer to Reason for Referral Status Appt Date Elissa Mae NP Sent 01/23/2019 [address] [place] [phone] Vikas Mazariegso MD Sent 10/27/2018 [address] [place] [phone]
--- OUTSIDE RECORDS SUMMARY | 2019-04-26 17:52 | XMS REPORT | Continuity of Care Document ---
:1975 External Reference #:[id number] Author Name Wilfredo Shore NP (transmitted by agent of provider Cesilia Holden) Address [address] [facility], [place] [address] Care Team Providers Name Role Phone Steve Doran MD - Ophthalmology Care Team Information Carpet Yarn Winder Operator [phone] Lydia Weaver M.D. - Surgery of Care Team Information Carpet Yarn Winder Operator [facility] Healthy Living - Care Team Information Carpet Yarn Winder Operator [phone] Hspt Tutor Pito Nieto MD - Hand Surgery Care Team Information Carpet Yarn Winder Operator [phone] Allyn Wilkinson M.D. - Family Medicine Care Team Information Carpet Yarn Winder Operator Problems Active Problems Provider Date Asthma without [...] (10 or fewer cigarettes/day) Smoking Status Reviewed: 04/10/19 Light tobacco smoker (10 or fewer cigarettes/day) [...] at night. Jarvis Leon Capsules Cpap Supplies [facility] provide G47.33 Yuni Chapman, 05/12/2018 necessary [...] Bedtime Synthroid take 1 tablet by 30tabs Allyn [...] day with 20mg tab (rx'd by [facility]) History Medications Ciprofloxacin HCL 1 by mouth twice 14tabs Chantel Upton MD 01/31/2019 - 250mg a day 04/09/2019 Tablets Propranolol HCL Take one tab by 60tabs Kvng Cintron 01/08/2019 - 10mg mouth in the Jarvis Leon 03/19/2019 Tablets morning and at night. take with 20 mg tablet for a total of 30 mg. Glipizide Take 1 Tablet By 30tabs Allyn Wilkinson MD 12/08/2018 - 10mg Tablets Mouth Every [...] CPT Code Status Date Vaccine Lot # [id number] Given 02/24/2018 Influenza Virus Vaccine, Quadrivalent, Split, Preservative Free [id number] Given 07/30/2016 Pneumonia Vaccine [id number] Given 01/26/2015 Influenza Virus Vaccine, Quadrivalent, Split, Preservative Free 50965 Given 10/24/2014 Tdap - Tetanus/Diptheria/Acellular Pertussis [id number] 72748 Given 01/24/2014 Flu Vaccine Split Virus Preservative Free For Indiv 3Yr Older Vital Signs Date Vital Result Comment 04/10/2019 9:47am Height 63.25 inches 5'3.25" Weight 212.00 lb Heart Rate 78 /min BP Systolic 130 mmHg BP Diastolic 74 mmHg BMI (Body Mass Index) 37.3 kg/m2 03/19/2019 2:20pm Height 63.25 inches 5'3.25" Weight 215.00 lb Heart Rate 71 /min BP Systolic 100 mmHg BP Diastolic 58 mmHg O2 % BldC Oximetry 96 % BMI (Body Mass Index) 37.8 kg/m2 Results Test Acquired Date Facility Test Result H/L Range Note CBC Auto 01/26/2019 [facility] White Blood 10.0 10^3/uL Normal 3.5-10.[address] [place] [address] [phone] Red Blood Count 4.61 10^6/uL Normal 3.70-4.87 [...] Blood Cells % 0.1 Laboratory test 01/26/2019 [facility] Ferritin 10.5 ng/mL Low 11-[address] [place] [address] [phone] Iron & Iron Binding 01/26/2019 [facility] Iron 20 g/dL Low 50-[address] [place] [address] [phone] Unsaturated Iron Binding < 433 g/dL Total Iron Binding Capacity 448 g/dL Normal 250-450 Transferrin 320 mg/dL Normal 203-362 % Iron Saturation 4 % Low 15-55 Vitamin B12 And 01/26/2019 [facility] Vitamin B12 175 pg/mL Low 180-914 2 Folate Serum [address] [place] [address] [phone] Folic Acid (Folate) 13.38 ng/mL >3.99 Laboratory test 01/26/2019 [facility] Hemoglobin A1c 5.7 % High 4.0-5.[address] [place] [address] (Glyco HGB) [place] [address] [phone] Cell Morphology 01/26/2019 [facility] Macrocytosis 2+ [address] [place] [address] [phone] Microcytosis 1+ Hypochromasia 1+ Polychromasia 1+ Anisocytosis 2+ Laboratory test 01/26/2019 [facility] Pathologist Review (SEE NOTE) [address] [place] [address] [phone] Urinalysis 01/26/2019 [facility] Urine Color Yellow Profile [address] [place] [address] [phone] Urine Appearance Cloudy Urine Specific Broadus 1.010 Normal 1.010-1.030 Urine pH 5.0 Normal [...] Present Abnormal Absent Urine Culture And 01/26/2019 [facility] Urine SEE RESULT [address] [place] [address] [phone] Comp Metabolic 01/26/2019 [facility] Sodium 136 mmol/L Normal 135-[address] [place] [address] [phone] Potassium 4.6 mmol/L Normal 3.5-5.0 Chloride 105 [...] >60 Egfr 105.8 >60 6 Laboratory 01/26/2019 [facility] TSH (Thyroid 1.86 Normal 0.34 -5.60 test finding [address] Stim Horm) mcIU/[place] [address] [phone] Lipid Profile 01/26/2019 [facility] Triglycerides 216 mg/dL 7 (Trig/Chol/HD [address] L) [place] [address] [phone] Cholesterol 131 mg/dL 8 HDL Cholesterol 33.4 mg/dL 9 LDL Cholesterol 54 mg/dL 10 Order 01/12/2019 [facility] In-House EKG viewed by Dr. Mandujano CBC Auto Diff 01/09/2019 [facility] White Blood 5.8 10^3/uL Normal 3.5-10.[address] [place] [address] [phone] Red Blood Count 3.61 10^6/uL Low 3.70-4.87 [...] Blood Cells % 0.1 Basic Metabolic 01/09/2019 [facility] Sodium 137 mmol/L Normal 135-[address] [place] [address] [phone] Potassium 3.6 mmol/L Normal 3.5-5.0 Chloride 107 mmol/L Normal 101-111 Co2 Carbon Dioxide 25 mmol/L Normal 22-32 Anion Gap 5 mmol/L Normal 2-11 Glucose 120 mg/dL High 70-100 Blood Urea Nitrogen 6 mg/dL Normal 6-24 Creatinine 0.69 mg/dL Normal 0.51-0.95 BUN/Creatinine Ratio 8.7 Normal 8-20 Calcium 8.2 mg/dL Low 8.6-10.3 Egfr Non- 93.3 >60 Egfr 112.9 >60 11 Liver Function 01/09/2019 [facility] Total Protein 6.3 g/dL Low 6.4-8.[address] [place] [address] [phone] Albumin 3.6 g/dL Normal 3.2-5.2 Globulin 2.7 g/dL Normal 2-4 Albumin/Globulin Ratio 1.3 Normal 1-3 Total Bilirubin 0.20 mg/dL Normal 0.2-1.0 Direct Bilirubin 0.00 mg/dL Low 0.03-0.18 Alkaline Phosphatase 68 U/L Normal 34-104 Alt 14 U/L Normal 7-52 Ast 11 U/L Low 13-39 Laboratory test 01/09/2019 [facility] Lipase 22 U/L Normal 11.0-82.[address] [place] [address] [phone] HCG < 0.60 mIU/mL 12 CBC Auto 01/09/2019 [facility] White Blood 6.8 10^3/uL Normal 3.5-10.[address] [place] [address] [phone] Red Blood Count 3.86 10^6/uL Normal 3.70-4.87 [...] Blood Cells % 0.0 Laboratory test 01/09/2019 [facility] Pathologist Review (SEE NOTE) [address] [place] [address] [phone] Stool Occult 01/09/2019 [facility] Stool Occult SEE RESULT 14 Blood, Screen [address] Blood, [place] [address] [phone] Laboratory test 10/27/2018 [facility] Stool Calprotectin <15.6 g/G [address] [place], [place] [address] [phone] Stool Culture SEE RESULT BELOW 16 Helico Pylori Antigen- Stool Negative Negative 17 Ova & Parasites Full 10/27/2018 [facility] Parasitic See Comment [address] Exam, [place] [address] [phone] Cryptosporidium And 10/27/2018 [facility] Giardia Negative 19 Giardia Ag [address] Antigen, [place] [address] [phone] Cryptosporidium Ag, F Negative 20 Laboratory test 10/25/2018 [facility] In House Hemoglobin A1c 5.5% 5-7 finding Urine Microalbumin 10/25/2018 [facility] Ur Microalbumin < 15.0 mg/L [address] (mg/L) [place] [address] [phone] Urine Creatinine 66.90 mg/dL Urine Microalbumin/Creatinine TNP <31 22 1 Consistent with Previous Results Reported on 01/09/19. 2 Normal Range 180 to 914 Indeterminate Range 145 to 180 Deficient Range <145 3 Therapeutic target for the treatment of diabetes mellitus patients is <7% HBA1C, and in selective patients <6.0%. Please refer to [employer] diabetic care guidelines for further information. 4 Microcytic anemia with red cell indices suggestive of iron deficiency. Additional studies as clinically warranted. Reviewed by Dr. Jernigan 5 SEE RESULT BELOW Name: FARTUN SALEEM : [address]: Chantel Upton MD Acct: [id number] Unit: [id number] AGE: 43 Location: [facility] Re01/26/19 SEX: F Status: REG REF SPEC: [id number] BOOKER: 01/26/[address]: Allyn Wilkinson MD REQ: [id number] RECD: 01/26/19 STATUS: COMP _ SOURCE: URINE SPDESC: ORDERED: Urine Culture Procedure Result Reported Site Urine Culture Final 01/28/19- 09 ML Organism 1 KLEBSIELLA PNEUMONIAE [place] Count >100,000 (Many) CFU/ML 1. KLEBSIELLA PNEUMONIAE [...] . END OF REPORT DEPARTMENT OF PATHOLOGY, [address] [place] [address] Inocencio Jernigan M.D. Director [facility] # [id number] 6 Because ethnic data is not always [...] 14 SEE RESULT BELOW Name: FARTUN SALEEM : [address]: Fernando Basurto MD Acct: [id number] Unit: [id number] AGE: 43 Location: ED Re01/09/19 SEX: F Status: REG ER SPEC: [id number] BOOKER: 01/09/19-[address] [facility] [address]: Fernando Basurto MD REQ: [id number] RECD: 01/09/19 STATUS: LORNA [facility] DR: Allyn Wilkinson MD _ SOURCE: STOOL SPDESC: ORDERED: Occult Bl, Scn Procedure Result Reported Site Stool Occult Blood (1) Final 01/09/19- 707 ML Stool Occult Blood Negative Collection Date () 01/09/19 * ML - Main Lab . END OF REPORT DEPARTMENT OF PATHOLOGY, [address] [place] [address] Inocencio Jernigan M.D. Director [facility] # [id number] REFERENCE VALUE <=50.0 (Normal) Test Performed by: [facility] - [address] [address] 16 SEE RESULT BELOW Name: FARTUN SALEEM : [address]: Elissa Mae NP Acct: [id number] Unit: [id number] AGE: 43 Location: [facility] Re10/29/18 SEX: F Status: REG REF SPEC: [id number] BOOKER: 10/27/[address]: Elissa Mae NP REQ: [id number] RECD: 10/30/18 STATUS: COMP _ SOURCE: STOOL SPDESC: ORDERED: Stool Culture Procedure Result Reported Site Stool Culture Final 06/12/19- 1435 ML Organism 1 BACILLUS SP (NON-ANTHRACIS) [...] CONTINUED ON NEXT PAGE DEPARTMENT OF PATHOLOGY, [address] [place] [address] Inocencio Jernigan M.D. Director [facility] # [id number] Patient: SALEEMFARTUN [id number] (Continued) Specimen: [id number] Collected: 10/27/18 Received: 10/30/18 (Continued) Procedure Result Reported Site Shiga Toxin 1 2 Final (continued) 10/31/18- 7970 Immunochromatographic Assay * ML - Main Lab . END OF REPORT DEPARTMENT OF PATHOLOGY, [address] [place] [address] Inocencio Jernigan M.D. Director [facility] # [id number] 17 Test Performed by: [place] [address] 18 SOURCE: STOOL PARASITIC EXAMINATION FINAL No parasites seen. Cryptosporidium, Cyclospora, and microsporidia are not readily detected by this method. Single negative specimen does not rule out parasitic infection. Test Performed by: [address] [address] 19 Reference Value - Negative Test Performed by: [address] [address] 20 Reference Value: Negative Test Performed by: [address] [address] 21 [id number] Unable to calculate due to low microalbumin Procedures Date Code Description Status 02/13/2019 05824 Use Of ECHO Contrast Agent During Stress ECHO Completed 02/13/2019 43323 Stress ECHO Interpretation/Report Hospital Completed 02/13/2019 77790 Treadmill Interp/Report Only Completed 02/13/2019 88315 Stress Test Supervsn W/Out I/R Completed 01/12/2019 72164 EKG Tracing & Interpretation Completed 11/21/2018 49393 Inject/Drain Joint/Bursa Small W/O US Completed 11/14/2018 341370966 Diabetic Retinal Eye Exam Completed 05/18/2018 02945154 Mammogram Completed 03/10/2017 936503438 Diabetic Retinal Eye Exam Completed 08/20/2016 60378855 Mammogram Completed 11/21/2015 865447369 Diabetic Retinal Eye Exam Completed 09/20/2014 81681239 Mammogram Completed Medical Devices Description No Information Available Encounters Type Date Location Provider Dx Diagnosis Office Visit 03/19/2019 Pulmonology Ashley Freeman G47.33 Obstructive sleep 3:00p [facility] apnea (adult) [facility] (pediatric) F17.210 Nicotine dependence, cigarettes, uncomplicated J45.909 Unspecified asthma, uncomplicated Office Visit 02/13/2019 [facility] Gastroenter[facility] [place] D64.9 Anemia, 2:00p Mae, HYDRAULIC MINER BLASTING unspecified Z79.84 [facility] (current) use of oral hypoglycemic drugs Office Visit 02/06/2019 [facility] Internal Medicine Chantel Won, E16.1 Other 11:00a - Graeme BEDOLLA hypoglycemia Office Visit 02/02/2019 [facility] Gastroenterology [place] D64.9 Anemia, 11:15a Mae, HYDRAULIC MINER BLASTING unspecified Z79.84 [facility] (current) use of oral hypoglycemic drugs E11.9 Type 2 diabetes mellitus without complications F17.210 Nicotine dependence, cigarettes, uncomplicated Office Visit 01/26/2019 11:40a [facility] Internal Allyn Wilkinson, D64.9 Anemia, Medicine - Graeme BEDOLLA unspecified R10.12 Left upper quadrant pain E11.9 Type 2 diabetes mellitus without complications Office Visit 01/15/2019 1:00p Pulmonology And Lydia R06.02 Shortness of [facility] breath [facility] F17.210 Nicotine dependence, cigarettes, uncomplicated J45.909 Unspecified asthma, uncomplicated G47.33 Obstructive sleep apnea (adult) (pediatric) R53.83 Other fatigue Office Visit 01/12/2019 2:20p [facility] Internal Alysia Z01.818 Encounter for other Medicine - [place], preprocedural [address] examination G56.01 Carpal tunnel syndrome, right upper limb D64.9 Anemia, unspecified R07.9 Chest pain, unspecified Office Visit 01/08/2019 10:00a [facility] Wilfredo Shore, G56.01 Carpal tunnel Services Of [facility] HYDRAULIC MINER BLASTING syndrome, right upper limb G43.009 Migraine w/o aura, not intractable, w/o status migrainosus Office Visit 12/19/2018 10:15a [facility] Pito G56.01 Carpal tunnel at Perla Nieto MD syndrome, right upper limb 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, r hand Office Visit 12/12/2018 2:00p [facility] Internal Chantel Upton, I10 Essential ( [facility] E11.9 Type 2 diabetes mellitus without complications F33.1 Major depressive disorder, recurrent, moderate E03.9 Hypothyroidism, unspecified Office Visit 12/12/2018 10:15a [facility] Gastroenterology Elissa Mae, E66.01 Morbid HYDRAULIC MINER BLASTING (severe) obesity due to excess calories R15.2 Fecal urgency Office Visit 11/21/2018 10:45a [facility] Pito G56.01 Carpal tunnel at Perla Nieto MD syndrome, right upper limb 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, r hand Office 10/30/2018 [facility] at [facility], M25.372 Other Visit 2:30p Perla BEDOLLA instability, left ankle Office 10/27/2018 [facility] Gastroenterology Elissa Mae, R19.7 Diarrhea, Visit 10:45a HYDRAULIC MINER BLASTING unspecified R15.2 Fecal urgency Office Visit 10/25/2018 11:20a [facility] Internal Chantel Upton, E11.9 Type 2 diabetes Medicine - mellitus without [facility] complications M79.674 Pain in right toe(s) F33.1 Major depressive disorder, recurrent, moderate N39.46 Mixed incontinence R15.9 Full incontinence of feces I10 Essential (primary) hypertension S91.114[place] w/o fb of right lesser toe(s) w/o damage to nail, subs Assessments Date Code Description Provider 04/10/2019 D64.9 Anemia, unspecified Wilfredo Shore, HYDRAULIC MINER BLASTING 04/10/2019 G47.33 Obstructive sleep apnea (adult) Wilfredo Shore NP (pediatric) 04/10/2019 G43.009 Migraine without aura, not intractable, Wilfredo Shore NP without status migrainosus 03/19/2019 G47.33 Obstructive sleep apnea (adult) Lydia Caldwell NP (pediatric) 03/19/2019 F17.210 Nicotine dependence, cigarettes, Lydia Caldwell NP uncomplicated 03/19/2019 J45.909 Unspecified asthma, uncomplicated Lydia Caldwell, TRACY 02/13/2019 D64.9 Anemia, unspecified Elissa Mae, HYDRAULIC MINER BLASTING 02/13/2019 Z01.810 Encounter for preprocedural cardiovascular Lan Farnsworth M.D. examination 02/13/2019 Z79.84 salvage determiner (current) use of oral Elissa Mae NP hypoglycemic drugs 02/06/2019 E16.1 Other hypoglycemia Chantel Upton MD 02/02/2019 D64.9 Anemia, unspecified Elissa Mae, TRACY 02/02/2019 Z79.84 salvage determiner (current) use of oral Elissa Mae, HYDRAULIC MINER BLASTING hypoglycemic drugs 02/02/2019 E11.9 Type 2 diabetes mellitus without Elissa Mae, HYDRAULIC MINER BLASTING complications 02/02/2019 F17.210 Nicotine dependence, cigarettes, Elissa Mae HYDRAULIC MINER BLASTING uncomplicated 01/26/2019 D64.9 Anemia, unspecified Allyn Wilkinson [...] 01/12/2019 Z01.818 Encounter for other preprocedural Alysia Mandujano DO examination 01/12/2019 G56.01 Carpal tunnel syndrome, right upper limb Alysia Mandujano, DO 01/12/2019 D64.9 Anemia, unspecified Alysia Mandujano, DO 01/12/2019 R07.9 Chest pain, unspecified Alysia Mandujano, DO 01/08/2019 G56.01 Carpal tunnel syndrome, right upper limb Wilfredo Shore, TRACY 01/08/2019 G43.009 Migraine without aura, not intractable, Wilfredo Shore, HYDRAULIC MINER BLASTING without status migrainosus 12/19/2018 G56.01 Carpal tunnel syndrome, right upper limb Pito Nieto MD 12/19/2018 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 ifeanyi Reeceometsharona foley 12/12/2018 E66.01 Morbid (severe) obesity due to excess Elissa Mae NP calories 12/12/2018 I10 Essential (primary) hypertension Chantel Upton MD 12/12/2018 R15.2 Fecal urgency Elissa Mae NP 12/12/2018 E11.9 Type 2 diabetes mellitus without Chantel Upton MD complications 12/12/2018 F33.1 Major depressive disorder, recurrent, Chantel Upton MD moderate 12/12/2018 E03.9 Hypothyroidism, mitraified Chantel Upton MD 11/21/2018 G56.01 Carpal tunnel syndrome, right upper limb Pito Nieto MD 11/21/2018 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 at [facility]04/25/2019 1:00 pm - Lan Farnsworth M.D. at [facility] [facility]04/26/2019 10:50 am - Jordyn Smith M.D. at [facility] Internal Medicine - [facility]07/23/2019 10:30 am - Lydia Caldwell NP at [facility]06/15/2019 10:15 am - Elissa Mae NP at [facility] Lvpkojmayefgrwkv69/19/2019 - Wilfredo Shore NPD64.9 Anemia, unspecifiedFollow up:6 VNYIKVA72.33 Obstructive sleep apnea (adult) (pediatric)G43.009 Migraine without aura, not intractable, without status migrainosus Functional Status Description No Information Available Mental Status Description No Information Available Referrals Refer to Dr Reason for Referral Status Appt Date Lan Farnsworth MD Sent 04/25/2019 [facility] [place] [address] [phone] Elissa Mae NP Sent 01/23/2019 [address] [place] [id number] [phone] Vikas Mazariegos MD Sent 10/27/2018 [address] [place] [address] [phone]
--- OUTSIDE RECORDS SUMMARY | 2019-04-26 17:52 | XMS REPORT | Continuity of Care Document ---
:1975 External Reference #:[id number] Author Name Joe Carmichael M.D. Address [address] [place] [address] Care Team Providers Name Role Phone Allyn Wilkinson MD - Internal Medicine Care Team Information Electron Beam Welding Machine Operator Chas Juarez DPM - Building Stonecutter Care Team Information Electron Beam Welding Machine Operator Kvng Leon M.D. - Neurology Care Team Information Electron Beam Welding Machine Operator [phone] Problems Active Problems Provider Date Asthma Onset: Mild depression Onset: Anxiety Onset: Insomnia Onset: Bipolar disorder Onset: Borderline personality disorder Onset: Methicillin resistant Staphylococcus Onset: aureus infection Anemia Onset: Injury of conjunctiva and corneal abrasion Steve Doran M.D. Onset: 07/28 without foreign body, left eye, initial encounter H/O: hyperthyroidism Onset: Hypothyroidism Onset: Type 2 diabetes mellitus Onset: Hypercholesterolemia Onset: Pulmonary emphysema Onset: Chorioretinal scar Lisa Siddiqi O.D. Onset: 12/08/2015 Strabismic amblyopia Lisa Siddiqi O.D. Onset: 12/08/2015 Recurrent erosion of cornea Lisa Siddiqi O.D. Onset: 12/08/2015 Retinal neovascularization Joe Carmichael M.D. Onset: 03/10/2017 Hypermetropia Joe Carmichael M.D. Onset: 03/10/2017 Presbyopia Joe Carmichael M.D. Onset: 03/10/2017 Recurrent bacterial infection Onset: Social History Type Date Description Comments Sex Unknown ETOH Use Denies alcohol use Tobacco Use Start: Unknown End: Patient is a former smoker quit 05/2014 Unknown Recreational Drug Use Denies Drug Use Smoking Status Reviewed: 03/05/19 Patient is a former smoker quit 05/2014 Allergies, Adverse Reactions, Alerts Active Allergies Reaction Severity Comments Date Oxycodone RASH 07/29/2014 Morphine vomiting,BP increases eyes get red and water 07/29/2014 Latex hives 07/29/2014 Medications Active Medications SIG Qnty Indications Ordering Provider Date Neomycin/Polymyxin/Dexa use one drop 10ml H01.001 Joe Carmichael, 2018 methasone three times a day M.DLeroy 3.5-93506-7.1 to both eyes for Suspension 14days then stop Soothe as needed Joe Carmichael, 11/13/2018 0.6-0.6% Solution M.DLeroy Alogliptin Benzoate Allyn Wilkinson MD 12.5mg Tablets Atorvastatin Calcium Take 1 Tablet By Unknown 20mg Mouth Everyday AT Tablets Bedtime Losartan Potassium Allyn Wilkinson MD 25mg Tablets Metformin HCL Take 1 Tablet By Unknown 1000mg Mouth Twice A Day Tablets Levothyroxine Sodium Take 1 Tablet Unknown 25mcg Every Day Tablets Hydroxyzine Pamoate Take 2 Capsules Unknown 50mg AT Bedtime Capsules Prazosin HCL Take One Capsule Unknown 1mg Capsules AT Bedtime Fluticasone Propionate Unknown 50mcg/Act Suspension Escitalopram Oxalate Unknown 20mg Tablets Nortriptyline HCL Unknown 10mg Capsules Trazodone HCL Jacinda Pichardo 100mg Tablets M.D. Propranolol HCL take 1 tablet Unknown 20mg twice a day Tablets Montelukast Sodium Jacinda Pichardo 10mg M.D. Tablets Gabapentin Jacidna Pichardo 300mg Capsules M.D. Oxybutynin Chloride ER Jacinda Pichardo 10mg M.D. Tablets ER 24HR Immunizations Description No Information Available Vital Signs Description No Information Available Results Description No Information Available Procedures Date Code Description Status 11/14/2018 58548 Scanning Computerized Opthalmic Diagnostic Posterior Seg Completed Retina 11/14/2018 35969 Est Patient Comprehensive Exam Completed Medical Devices Description No Information Available Encounters Description No Information Available Assessments Date Code Description Provider 03/05/2019 H01.001 Unspecified blepharitis right upper eyelid Joe Carmichael M.D. 03/05/2019 H01.004 Unspecified blepharitis left upper eyelid Joe Carmichael M.D. 11/14/2018 E11.9 Type 2 diabetes mellitus without Joe Carmichael M.D. 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 Plan of Treatment Future Appointment(s):11/20/2019 10:00 am - Joe Carmichael M.D. at Steve Doran MD, [facility] - Joe Carmichael M.D.H01.001 Unspecified blepharitis right upper eyelidNew Medication:Neomycin/Polymyxin/Dexamethasone 3.5-38653-1.1 - use one drop three times a day to both eyes for 14days then stopComments: Smoking can increase the risk of developing or worsening any eye related disease , as well as affect your overall health. If you are a smoker, we strongly recommend that you quit.If you are not a smoker, we strongly recommend that you do not start. Please follow Dr. Carmichael's instructions. I WILL PRESCRIBE AN EYE DROP, USE 1 DROP 3 TIMES A DAY TO BOTH EYES FOR 2 WEEKS THEN STOP.USE WARM COMPRESSES(RICE BAG) FOR 3-5 MINUTES AT NIGHT BEFORE BED. CONTINUE USING OVER THE COUNTER ARTIFICAL TEARS 2-3 TIMES A DAY.Follow up:As scheduled You can expect to have your eyes dilated at your next visit. If Dr. Carmichael orders any additional testing, it may require extra time. We recommend that you bring sunglasses, as dilation drops often make you light sensitive until they wear off. We always recommend you bring someone to drive you home if you are uncomfortable driving with your eyes dilated. If you have any questions before your next visit, feel free to call our office at .H01.004 Unspecified blepharitis left upper eyelid Functional Status Description No Information Available Mental Status Description No Information Available Referrals Description No Information Available
--- OUTSIDE RECORDS SUMMARY | 2019-04-26 17:52 | XMS REPORT ---
:1975 Author Organization [facility] Care Team Providers Name Role Phone Glenn Wilson Primary Care Physician Unavailable Allergies, Adverse Reactions, Alerts Allergy Code CodeSystem Reaction Severity Criticality Status Start Substance Date Moderate Medications Medication Medication Medication Start Stop Route Dose Status Fill Code CodeSystem Date Date Instructions prazosin 841523 RxNorm 2019- oral 2 mg 2 active Take 2 11-14 capsule capsule every every night night for 30 day(s) trazodone 734475 RxNorm 2019- oral 100 mg completed for 30 09-22 05-21 tablet day(s) trazodone 983485 RxNorm 2019- oral 100 mg completed for 30 10-10 07-12 tablet day(s) gabapentin 261354 RxNorm 2019- oral 600 mg completed for 30 - 09-03 tablet day(s) escitalopram 867232 RxNorm 2019- oral 20 mg completed for 30 oxalate 08-11 09-10 tablet day(s) gabapentin 511042 RxNorm 2019- oral 600 mg active for 30 9- 12-10 tablet day(s) hydroxyzine 941909 RxNorm 2019- oral 50 mg active for 30 pamoate 11-14- capsule day(s) prazosin 744034 RxNorm 2019- oral 2 mg completed for 30 -10 11-25 capsule day(s) trazodone 353843 RxNorm 2019- oral 100 mg active for 30 - 10-21 tablet day(s) escitalopram 704933 RxNorm 2019- oral 10 mg 1 completed 1 tablet oxalate 11-01-10 tablet once a day once a for 30 day(s) day escitalopram 667585 RxNorm 2019- oral 10 mg completed for 30 oxalate -11 11-12 tablet day(s) Problems Problem Name Code CodeSystem Alternate Alternate Start End Status Narrative Code CodeSystem Date Date 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, 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 Obesity, 67917417 SNOMED-CT Active unspecified 9-17 Obesity, 58358593 SNOMED-CT Active unspecified 9-17 Post-traumat 89200179 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, unspecified Relevant diagnostic tests/laboratory data Narrative No Information Procedures Procedure Code CodeSystem Target Date of Status Service Device Device Device Name Site Procedure Delivery Code Name UID Location Psychotherap 525333 SNOMED-CT () 2019-01-04 complete Mental y, 45 04 d Health- minutes with [place] patient [address], [id number] [id number] Psychotherap [id number] SNOMED-CT () 2019-02-06 complete Mental y, 45 04 d Health- minutes with [place] patient [address], [id number] [id number] Psychotherap [id number] SNOMED-CT () 2018-09-04 complete Mental y, 45 04 d Health- minutes with [place] patient [address], [id number] [id number] Psychotherap [id number] SNOMED-CT () 2018-10-05 complete Mental y, 45 04 d Health- minutes with [place] patient [address], [phone] [phone] Psychotherap [id number] SNOMED-CT () 2018-11-27 complete Mental y, 45 04 d Health- minutes with [place] patient [address], [id number] [id number] Office [place] [id number] SNOMED-CT () 2018-11-14 complete Mental other 7 d Health- outpatient [place] visit for [address], of [place], established [id number] patient, [phone] which requires at least 2 of these 3 ferrari components: An expanded problem focused history; An expanded problem focused examination; Medical decision making of [facility] Office or [id number] SNOMED-CT () 2019-02-06 complete Mental other 7 d Health- outpatient [place] visit for [address], established [phone] patient, [phone] which requires at least 2 of these 3 ferrari components: An expanded problem focused history; An expanded problem focused examination; Medical decision making of [facility] or [id number] SNOMED-CT () 2019-04-03 complete Mental other 6 d Health- outpatient [place] visit for [address], established [phone] patient, [id number] which requires at least 2 of these 3 ferrari components: A problem focused history; A problem focused examination; [facility] [place] medical decision making. [facility] or [id number] SNOMED-CT () 2018-10-10 complete Mental other 6 d Health- outpatient [place] visit for [address], established [phone] patient, [phone] which requires at least 2 of these 3 ferrari components: A problem focused history; A problem focused examination; [facility] [place] [facility] () 2018-12-20 complete Mental d Health- [place], [phone] Encounters/Encounter Diagnoses Encounter Encounter Diagnosis Diagnosis Diagnosis Date of Service Name Code Code Name CodeSystem Diagnosis Delivery Location Non-Billable 72271 SNOMED-CT 2019-02-20 [facility] , , , Vital Signs No Information Social History Element Description Description Start End Code CodeSystem AdditionalInfo Date Date SexAssignedAtBirth Female 1974-05 F AdministrativeGender 0-18 Hospital Discharge Instructions Reason For Referral Medical Equipment FDA Assessments
[2019-04-26 20:10] LABS: Urine Appearance Clear; Urine Bilirubin Negative (Negative); Urine Blood Negative (Negative); Urine Color Straw; Urine Glucose Negative (Negative); Urine Ketones Negative (Negative); Urine Nitrite Negative (Negative); Urine Protein Negative (Negative); Urine Specific Gravity 1.005 (1.010-1.030); Urine Urobilinogen Negative (Negative)
--- NOTE | 2019-04-26 21:06 | ED ---
Abdominal Pain/Female - HPI Summary HPI Summary: Reports emergency department today with a chief complaint of left abdominal and flank pain which began 2 days ago. She reports 6 out of 10 constant pain which she describes as "aching" and is not alleviated with change in position or medication. She denies medical history diverticulitis, kidney stones, hernia. She states she has a significant family medical history of diabetes and hyperlipidemia. She denies fever, chest pain, shortness of breath, pain with urination, vaginal discharge, changes in bowel movements, blood in her stool, dark colored stool. - History of Current Complaint Chief Complaint: EDFlankPain Stated Complaint: LT FLANK PAIN PER PT Time Seen by Provider: 04/26/19 21:06 Hx Obtained From: Patient Hx Last Menstrual Period: ended 01/08/19 Onset/Duration: Gradual Onset, Lasting Weeks Timing: Constant Severity Initially: Moderate Severity Currently: Moderate Pain Intensity: 7 Pain Scale Used: 0-10 Numeric Location: Discrete At: LLQ Radiates: Yes Radiates to: Flank Character: Cramping Aggravating Factor(s): Movement Alleviating Factor(s): Nothing Associated Signs and Symptoms: Negative: Diaphoresis, Fever, Chest Pain, Back Pain, Constipation, Decreased Appetite, Vaginal Bleeding, Nausea, Vomiting, Diarrhea Allergies/Adverse Reactions: Allergies Allergy/AdvReac Type Severity Reaction Status Date / Time oxycodone Allergy Severe Rash Verified 01/09/19 00:57 latex Allergy Intermediate Rash Verified 01/09/19 00:57 adhesive tape Allergy Rash Verified 01/09/19 00:57 morphine AdvReac Severe Nausea And Verified 01/09/19 00:57 Vomiting Bleach (Sodium Hypochlorite) AdvReac headaches, Verified 01/09/19 00:57 watery eyes lactose AdvReac GI Upset Verified 02/12/19 16:56 BEETS AdvReac Intermediate WATERY Uncoded 01/09/19 00:21 EYES, NAUSEA PMH/Surg Hx/FS Hx/Imm Hx Endocrine/Hematology History: Reports: Hx Diabetes - TYPE 2, Hx Thyroid Disease - HYPO Denies: Hx Anticoagulant Therapy Cardiovascular History: Reports: Hx Angina, Hx Hypertension - ON MEDS Denies: Hx Congestive Heart Failure, Hx Deep Vein Thrombosis, Hx Myocardial Infarction, Hx Pacemaker/ICD, Hx Valvular Heart Disease, Other Cardiovascular Problems/Disorders Respiratory History: Reports: Hx Asthma, Hx Sleep Apnea Denies: Hx Chronic Obstructive Pulmonary Disease (COPD), Hx Lung Cancer, Hx Pneumonia, Hx Pulmonary Embolism, Other Respiratory Problems/Disorders GI History: Reports: Hx Gastroesophageal Reflux Disease, Other GI Disorders - LLQ and epigastric pain since 1999, FREQUENTLY, UNSURE WHY Denies: Hx Gall Bladder Disease, Hx Gastrointestinal Bleed, Hx Ulcer, Hx Urosepsis History: Reports: Hx Kidney Infection - Hx OF, NONE PAST 2 YEARS Denies: Hx Dialysis, Hx Kidney Stones, Hx Renal Disease, Other Problems/ Disorders Musculoskeletal History: Reports: Hx Arthritis - RT KNEE, Hx Scoliosis, Hx Tendonitis - left ankle Denies: Other Musculoskeletal History Sensory History: Reports: Hx Contacts or Glasses - GLASSES Denies: Hx Hearing Aid Opthamlomology History: Reports: Hx Contacts or Glasses - GLASSES Neurological History: Reports: Hx Headaches, Hx Migraine Denies: Hx Dementia, Hx Seizures, Hx Transient Ischemic Attacks (TIA), Other Neuro Impairments/Disorders Psychiatric History: Reports: Hx Anxiety, Hx Depression Denies: Hx Eating Disorder, Hx Panic Disorder, Hx Schizophrenia, Hx Bipolar Disorder, Hx of Violent Episodes Against Others - Cancer History Hx Chemotherapy: No Hx Radiation Therapy: No - Surgical History Surgery Procedure, Year, and Place: 2015 APPENDECTOMY [facility]. 04/2016 RT HAND CARPAL TUNNEL [facility]. LEFT CARPAL TUNNEL, 2018, [facility]. 1998, TUBAL LIGATION Hx Anesthesia Reactions: No Infectious Disease History: No Infectious Disease History: Reports: Hx of Known/Suspected MRSA Denies: Hx Clostridium Difficile, Hx Hepatitis, Hx Human Immunodeficiency Virus (HIV), Hx Shingles, Hx Tuberculosis, Hx Known/Suspected VRE, Hx Known/ Suspected VRSA, History Other Infectious Disease, Traveled Outside the [place] in Last 30 Days - Family History Known Family History: Positive: Hypertension, Diabetes Negative: Cardiac Disease, Renal Disease, Respiratory Disease, Seizure Disorder, Blood Disorder, Other - Social History Alcohol Use: Occasionally Alcohol Amount: FEW DRINKS/ WEEK Hx Substance Use: No Substance Use Type: Reports: None Hx Tobacco Use: Yes Smoking Status (MU): Heavy Every Day Tobacco Smoker Type: Cigarettes Amount Used/How Often: 1 pack/day Have You Smoked in the Last Year: Yes Review of Systems Constitutional: Negative Eyes: Negative ENT: Negative Cardiovascular: Negative Respiratory: Negative Positive: Abdominal Pain Genitourinary: Negative Musculoskeletal: Negative Skin: Negative Neurological: Negative Psychological: Normal All Other Systems Reviewed And Are Negative: Yes Physical Exam Triage Information Reviewed: Yes Vital Signs On Initial Exam: Initial Vitals Temp Pulse Resp BP Pulse Ox 98.2 F 81 16 140/74 98 04/26/19 17:41 04/26/19 17:41 04/26/19 17:41 04/26/19 17:41 04/26/19 17:41 Vital Signs Reviewed: Yes Appearance: Positive: Well-Appearing, No Pain Distress, Well-Nourished Skin: Positive: Warm, Skin Color Reflects Adequate Perfusion Eyes: Positive: EOMI, AILEEN ENT: Positive: Hearing grossly normal Respiratory/Lung Sounds: Positive: Clear to Auscultation, Breath Sounds Present Cardiovascular: Positive: RRR, S1, S2 Abdomen Description: Positive: Soft. Negative: CVA Tenderness (R), CVA Tenderness (L), Distended, Guarding, McBurney's Point Tenderness, Peritoneal Signs, Other: - Negative Rovsing, obturator, psoas, McBurney's, Mencahca's Bowel Sounds: Positive: Present Musculoskeletal: Positive: Strength/ROM Intact Neurological: Positive: Sensory/Motor Intact, Alert, Oriented to Person Place, Time, Speech Normal Psychiatric: Positive: Normal AVPU Assessment: Alert Procedures - Sedation Patient Received Moderate/Deep Sedation with Procedure: No Diagnostics - Vital Signs Vital Signs Temp Pulse Resp BP Pulse Ox 04/26/19 19:45 97.9 F 88 16 130/79 95 04/26/19 17:41 98.2 F 81 16 140/74 98 - Laboratory Lab Results: Lab Results 04/26/19 Range/Units 19:50 Urine Color Straw Urine Appearance Clear Urine pH 5.0 (5-9) Ur Specific [place] 1.005 L (1.010-1.030) Urine Protein Negative (Negative) Urine Ketones Negative (Negative) Urine Blood Negative (Negative) Urine Nitrate Negative (Negative) Urine Bilirubin Negative (Negative) Urine Urobilinogen Negative (Negative) Ur Leukocyte Esterase Negative (Negative) Urine Glucose Negative (Negative) Result Diagrams: 04/26/19 21:27 04/26/19 21:27 Lab Statement: Any lab studies that have been ordered have been reviewed, and results considered in the medical decision making process. Abdominal Pain Fem Course/Dx - Course Course Of Treatment: Patient was evaluated in the emergency department for abdominal pain. Vital signs were noted and stable. Laboratory studies returned showing no evidence of leukocytosis, electrolyte abnormality, UTI, anemia or other infectious pathology. CT of the abdomen and pelvis was done which shows complex cystic structure in the anterior aspect of the left pelvis with internal separations measuring approximately 6.2 cm AP and 7.5 cm laterally possibly arising from the left ovary. Recommended pelvic ultrasound for further evaluation. This cyst is likely causing her symptoms however it is not an acute problem requiring intervention at this time. She is to follow-up with her primary care provider for further evaluation and management of this finding. She was told to return to the emergency department immediately if she developed any new or worsening symptoms. - Diagnoses Differential Diagnosis: Positive: Appendicitis, Bowel Obstruction, Constipation , Diverticulitis, Gall Bladder Disease, Ovarian Cyst, Renal Colic, Urinary Tract Infection Provider Diagnoses: Ovarian cyst, Abdominal pain Discharge ED - Sign-Out/Discharge Documenting (check all that apply): Patient Departure - Discharge Plan Condition: Stable Disposition: HOME Patient Education Materials: Abdominal Pain (ED) Referrals: Allyn Wilkinson MD [Primary Care Provider] - 1 Day Additional Instructions: You were seen in the emergency department today for abdominal pain. Your lab work returned all within normal limits however the CT scan done showed "a complex cystic structure in the anterior aspect of the left pelvis measuring approximately 6.2 x 7.5 cm, possibly arising from the left ovary, recommend pelvic ultrasound for further evaluation." Your symptoms are likely due to the cystic structure however this is not an acute medical emergency requiring intervention at this time. Please see your primary care provider for further evaluation and management. Please return to the emergency department immediately if you develop any new or worsening symptoms. - Billing Disposition and Condition Condition: STABLE Disposition: Home
[2019-04-26 21:37] LABS: Hematocrit 39 % (35-47); Hemoglobin 13.6 g/dL (12.0-16.0); Mean Corpuscular HGB Conc 35 g/dL (31-36); Mean Corpuscular Hemoglobin 30 pg (27-31); Mean Corpuscular Volume 85 fL (80-97); Mean Platelet Volume 7.3 fL (7.4-10.4); Platelet Count 271 10^3/uL (150-450); Red Blood Count 4.54 10^6 /uL (3.70-4.87); Red Cell Distribution Width 19 % (10-15); White Blood Count 7.3 10^3/uL (3.5-10.8)
[2019-04-26 21:55] LABS: ABS Basophils 0.1 10^3/ul (0-0.2); ABS Eosinophils 0.4 10^3/ul (0-0.6); ABS Lymphocytes 2.7 10^3/ul (1.0-4.8); ABS Monocytes 0.6 10^3/ul (0-0.8); ABS Neutrophils 3.5 10^3/ul (1.5-7.7); Eosinophil % 5.8 %; Lymphocyte % 37.2 %; Nucleated Red Blood Cells % 0.1
[2019-04-26 22:07] LABS: Albumin/Globulin Ratio 1.3 (1-3); BUN/Creatinine Ratio 11.5 (8-20); C Reactive Protein 3.36 mg/L (<8.01); Calcium 9.4 mg/dL (8.6-10.3); EGFR African American 97.5 (>60); EGFR Non-African American 80.6 (>60); Potassium 3.8 mmol/L (3.5-5.0); Total Bilirubin 0.2 mg/dL (0.2-1.0)
[2019-04-26] MEDS ORDERED: Iodixanol* (CONTRAST) 320 MG/ML 100 ML SDV IV ONE (22:13)
[2019-04-27 01:29] VITALS: BP 141/62
== END 2019-04-27 01:25 | disposition home or self-care (01) ==
LOC: ED 17:27
DX: N83.202 Unspecified ovarian cyst, left side (principal); R10.9 Unspecified abdominal pain; E11.9 Type 2 diabetes mellitus without complications; E03.9 Hypothyroidism, unspecified; I10 Essential (primary) hypertension; K21.9 Gastro-esophageal reflux disease without esophagitis; F41.9 Anxiety disorder, unspecified; F32.9 Major depressive disorder, single episode, unspecified; Z90.89 Acquired absence of other organs; Z98.51 Tubal ligation status; F17.210 Nicotine dependence, cigarettes, uncomplicated; Z88.5 Allergy status to narcotic agent; Z91.040 Latex allergy status
CPT/HCPCS: 36415; 74177; 80053; 81003; 83605; 83690; 83735; 85025; 86140; 99282

== ENCOUNTER 2019-07-23 10:32 | Emergency (ER) | payer OTHER ==
--- OUTSIDE RECORDS SUMMARY | 2019-07-23 10:51 | XMS REPORT | Continuity of Care Document ---
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 - Surgery of Care Team Information Stem Roller Or Crusher Operator [facility] Healthy Living - Care Team Information Stem Roller Or Crusher Operator Chemical Lab Technician Pito Nieto MD - Hand Surgery Care Team Information Stem Roller Or Crusher Operator Bee Salgado M.D. - Family Medicine Care Team Information Stem Roller Or Crusher Operator Problems Active Problems Provider Date Asthma [...] History Type Date Description Comments Sex Unknown Tobacco Use Start: Unknown End: Former Cigarette Smoker Unknown Smoking Status Reviewed: 06/15/19 Former Cigarette Smoker ETOH Use consumes 3-4 beers per week Recreational Drug Use Never Used Drugs Tobacco Use Start: Unknown End: Patient is a former [employer] 05/22/19 Unknown smoker Exercise Type/Frequency Does not exercise Allergies, Adverse [...] Glipizide XL Take one tablet 90tabs E16.1 Mirtha Peraza, 02/06/2019 5mg daily Jarvis, FACP Tablets ER 24HR Iron 1 by mouth 2 60tabs D64.9 Bee Salgado MD 01/26/2019 325(65Fe) mg x/day, with food Tablets and Vitamin C Vitamin C 1 by mouth twice 60caps D64.9 Bee Salgado MD 01/26/2019 500mg a day, with iron Capsules Nortriptyline HCL take one cap by 30capalecia Cintron 01/08/2019 50mg mouth at night. Jarvis Leon Capsules Cpap Supplies Pls provide G47.33 Yuni Chapman, 05/12/2018 necessary cpap supplies, mask to fit, tubing, head gear, filters True Metrix Meter for testing daily 1units Avtar Molina 05/04/2018 Jarvis Hankins,FACP W/Device Kit True Metrix Self test blood sugars 300units Bee Salgado MD 05/04/2018 Monitoring Blood once a day, as Glucose Strips directed Strips True Metrix Lancets 100units Avtar Molina 05/04/2018 Ulises Hankins.,FACP Lancets 30G use 2 to 3 times 100units Chantel Upton MD 05/04/2018 30G Misc daily Metformin HCL take one tablet 60tabs R79.9 Chantel Upton MD 11/30/2017 1000mg by mouth twice a Tablets day Losartan Potassium Take 1 Tablet By 30tabs E11.9 Chantel Upton MD 2016 25mg Mouth Every Day Tablets Atorvastatin Calcium Take 1 Tablet By [...] Jacinda Pichardo, 06/15/2010 20mg Tablets day M.D. Prazosin HCL two by mouth Unknown 1mg every evening Capsules Lexapro 1 by mouth every Unknown 10mg Tablets day with 20mg tab (rx'd by [facility]) Bupropion 1 tablet by mouth Unknown Hydrochloride ER (XL) daily 150mg Tablets ER 24HR Hydroxyzine HCL 2 tablets by Unknown 25mg mouth at bedtime Tablets Gabapentin 1 tablet po at Unknown 600mg bedtime ( med Tablets change increase ) History Medications Mupirocin apply a thin layer 22gm Jordyn Smith, 05/03/2019 - 2% Ointment on the skin of M.D. 06/01/2019 affected area twice a day for 5 days Ciprofloxacin HCL 1 by mouth twice a 14tabs Chantel Upton MD 01/31/2019 - 250mg day 04/09/2019 Tablets Propranolol HCL Take one tab by 60tabs Kvng Cintron 01/08/2019 - 10mg mouth in the Jarvis Leon 03/19/2019 Tablets morning and at night. take with 20 mg tablet for a total of 30 mg. Medications Administered in Office Medication SIG Qnty Indications Ordering Provider Date Inj, Regadenoson, 0.1 MG Lan Farnsworth M.D. 06/01/2019 Injection Aminophylline Lan Farnsworth M.D. 06/01/2019 Injection Technetium TC 99M Tetrofosmin, Lan Farnsworth M.D. 06/01/2019 Per Unit Dose Up To 40 Millicuries Injection Technetium TC 99M TetrofosminLan M.D. 06/01/2019 Per Unit Dose Up To 40 Millicuries Injection Celestone 3 mg and 3mg Pito Nieto MD 11/21/2018 Injection Celestone 3 mg and 3mg Pito Nieto MD 06/27/2018 Injection PPD Bee Salgado MD 04/24/2018 Injection Depomedrol 40MG Lydia Desouza M.D. 01/22/2016 Injection Depomedrol 40MG Lydia Desouza M.D. 01/22/2016 Injection Depomedrol 40MG Lydia Desouza M.D. 10/09/2015 Injection Immunizations CPT Code Status Date Vaccine Lot # [id number] Given 04/26/2019 Influenza Virus Vaccine, Quadrivalent ([id number]), [id number] Derived From Cell 23223 Given 02/24/2018 Influenza Virus Vaccine, Quadrivalent, Split, Preservative Free 15319 Given 07/30/2016 Pneumonia Vaccine [id number] Given 01/26/2015 Influenza Virus Vaccine, Quadrivalent, Split, Preservative Free [id number] Given 10/24/2014 Tdap - Tetanus/Diptheria/Acellular Pertussis [id number] Given 01/24/2014 Flu Vaccine Split Virus Preservative Free For Indiv [id number] Older Vital Signs Date Vital Result Comment 06/15/2019 9:47am Height 63.25 inches 5'3.25" Weight 221.38 lb Heart Rate 76 /min left radial regular BP Systolic Sitting 104 mmHg ule reg cuff BP Diastolic Sitting 60 mmHg ule reg cuff BMI (Body Mass Index) 38.9 kg/m2 06/13/2019 1:23pm Height 63.25 inches 5'3.25" Weight 223.00 lb with shoes Heart Rate 70 /min BP Systolic Sitting 104 mmHg Rue lg cuff BP Diastolic Sitting 70 mmHg Rue lg cuff BP Systolic Standing 100 mmHg Rue lg cuff BP Diastolic Standing 70 mmHg Rue lg cuff Respiratory Rate 16 /min BMI (Body Mass Index) 39.2 kg/m2 Ejection Fraction 55-60% date 06/05/19 ECHO Results Test Acquired Date Facility Test Result H/L Range Note Laboratory test 06/08/2019 [facility] Gardnerella/Yea SEE RESULT 1, [address]: Vaginal [place] [address] [phone] Surgical 06/08/2019 [facility] Surgical SEE RESULT 3, [address] [place] [address] [phone] PDFReport SEE IMAGE Laboratory test 06/04/2019 [facility] Hemoglobin A1c 6.1 % High 4.0-5.6 [address] (Glyco HGB) [place] [address] [phone] Comp Metabolic 04/26/2019 [facility] Sodium 136 Normal 135- [address] mmol/[place] [address] [phone] Potassium 3.8 mmol/L Normal 3.5-5.0 Chloride 105 mmol/L Normal 101-111 Co2 Carbon Dioxide 25 mmol/L Normal 22-32 Anion Gap 6 mmol/L Normal 2-11 Glucose 94 mg/dL Normal 70-100 Blood Urea Nitrogen 9 mg/dL Normal 6-24 Creatinine 0.78 mg/dL Normal 0.51-0.95 BUN/Creatinine Ratio 11.5 Normal 8-20 Calcium 9.4 mg/dL Normal 8.6-10.3 Total Protein 7.0 g/dL Normal 6.4-8.9 Albumin 4.0 g/dL Normal 3.2-5.2 Globulin 3.0 g/dL Normal 2-4 Albumin/Globulin Ratio 1.3 Normal 1-3 Total Bilirubin 0.20 mg/dL Normal 0.2-1.0 Alkaline Phosphatase 66 U/L Normal 34-104 Alt 16 U/L Normal 7-52 Ast 13 U/L Normal 13-39 Egfr Non- 80.6 >60 Egfr 97.5 >60 6 Laboratory test 04/26/2019 [facility] Magnesium 2.0 mg/dL Normal 1.9-2.[address] [place] [address] [phone] Lipase 31 U/L Normal 11.0-82.0 C Reactive Protein 3.36 mg/L Normal <8.01 Lactic Acid 0.8 mmol/L Normal 0.5-2.0 7 CBC Auto 04/26/2019 [facility] White Blood 7.3 10^3/uL Normal 3.5-10.[address] [place] [place] [address] [phone] Red Blood Count 4.54 10^6/uL Normal 3.70-4.87 Hemoglobin 13.6 g/dL Normal 12.0-16.0 Hematocrit 39 % Normal 35-47 Mean Corpuscular Volume 85 fL Normal 80-97 Mean Corpuscular Hemoglobin 30 pg Normal 27-31 Mean Corpuscular HGB Conc 35 g/dL Normal 31-36 Red Cell Distribution Width 19 % High 10-15 Platelet Count 271 10^3/uL Normal 150-450 Mean Platelet Volume 7.3 fL Low 7.4-10.4 Abs Neutrophils 3.5 10^3/uL Normal 1.5-7.7 Abs Lymphocytes 2.7 10^3/uL Normal 1.0-4.8 Abs Monocytes 0.6 10^3/uL Normal 0-0.8 Abs Eosinophils 0.4 10^3/uL Normal 0-0.6 Abs Basophils 0.1 10^3/uL Normal 0-0.2 Abs Nucleated RBC 0.0 10^3/uL Granulocyte % 47.5 % Lymphocyte % 37.2 % Monocyte % 8.6 % Eosinophil % 5.8 % Basophil % 0.9 % Nucleated Red Blood Cells % 0.1 Urinalysis Profile 04/26/2019 [facility] Urine Color Straw [address] [place] [address] [phone] Urine Appearance Clear Urine Specific Madison 1.005 Low 1.010-1.030 Urine pH 5.0 Normal 5-9 Urine Urobilinogen Negative Negative Urine Ketones Negative Negative Urine Protein Negative Negative Urine Leukocytes Negative Negative Urine Blood Negative Negative Urine Nitrite Negative Negative Urine Bilirubin Negative Negative Urine Glucose Negative Negative Cell Morphology 04/10/2019 [facility] Microcytosis 1+ 9 [address] [place] [address] [phone] Anisocytosis 2+ Iron & Iron Binding 04/10/2019 [facility] Iron 51 g/dL Normal 50-212 Capacity [address] [place] [address] [phone] Unsaturated Iron Binding < 369 g/dL Total Iron Binding Capacity 384 g/dL Normal 250-450 Transferrin 274 mg/dL Normal 203-362 % Iron Saturation 13 % Low 15-55 Laboratory test 04/10/2019 [facility] Vitamin B12 242 pg/mL Normal 180-914 10 finding [address] [place] [address] [phone] Methylmalonic Acid Mma 0.11 nmol/mL <=0.40 11 Ferritin 14.5 ng/mL Normal 11-307 12 Comp Metabolic 04/10/2019 [facility] Sodium 139 mmol/L Normal 135-145 Panel [address] [place] [address] [phone] Potassium 4.7 mmol/L Normal 3.5-5.0 Chloride 106 [...] Egfr Non- 83.1 >60 Egfr 100.5 >60 13 CBC Auto 04/10/2019 [facility] White Blood 6.8 10^3/uL Normal 3.5-10.[address] [place] [address] [phone] Red Blood Count 4.85 10^6/uL Normal 3.70-4.87 [...] % Nucleated Red Blood Cells % 0.1 Lipid Profile 01/26/2019 [facility] Triglycerides 216 mg/dL 14 (Trig/Chol/HDL) [address] [place] [address] [phone] Cholesterol 131 mg/dL 15 HDL Cholesterol 33.4 mg/dL 16 LDL Cholesterol 54 mg/dL 17 Laboratory 01/26/2019 [facility] TSH (Thyroid 1.86 Normal 0.34 -5.60 test finding 101 [facility] Stim Horm) mcIU/[place] [address] [phone] Comp Metabolic 01/26/2019 [facility] Sodium 136 mmol/L Normal 135-145 Panel [address] [place] [address] [phone] Potassium 4.6 mmol/L Normal 3.5-5.0 Chloride 105 [...] Egfr Non- 87.4 >60 Egfr 105.8 >60 18 Urine Culture And 01/26/2019 [facility] Urine Culture SEE RESULT [address] [place] [address] [phone] Urinalysis Profile 01/26/2019 [facility] Urine Color Yellow [address] [place] [address] [phone] Urine Appearance Cloudy Urine Specific Madison 1.010 Normal 1.010-1.030 Urine pH 5.0 Normal [...] Cell Present Abnormal Absent Laboratory test 01/26/2019 [facility] Pathologist Review (SEE NOTE) [address] [place] [address] [phone] Cell Morphology 01/26/2019 [facility] Macrocytosis 2+ [address] [place] [address] [phone] Microcytosis 1+ Hypochromasia 1+ Polychromasia 1+ Anisocytosis 2+ Laboratory test 01/26/2019 [facility] Hemoglobin A1c 5.7 % High 4.0-5.[address] (Glyco HGB) [place] [address] [phone] Vitamin B12 And 01/26/2019 [facility] Vitamin B12 175 Low 180- 914 22 Folate Serum [address] pg/mL [place], [place] [address] [phone] Folic Acid (Folate) 13.38 ng/mL >3.99 CBC Auto 01/26/2019 [facility] White Blood 10.0 10^3/uL Normal 3.5-10.[address] [place] [address] [phone] Red Blood Count 4.61 10^6/uL Normal 3.70-4.87 Hemoglobin 10.1 g/dL Low 12.0-16.0 Hematocrit 32 % Low 35-47 Mean Corpuscular Volume 70 fL Low 80-97 23 Mean Corpuscular Hemoglobin 22 pg Low 27-31 [...] Blood Cells % 0.1 Laboratory test 01/26/2019 [facility] Ferritin 10.5 ng/mL Low 11-307 finding [address] [place] [address] [phone] Iron & Iron Binding 01/26/2019 [facility] Iron 20 g/dL Low 50-212 Capacity [address] [place] [address] [phone] Unsaturated Iron Binding < 433 g/dL Total Iron Binding Capacity 448 g/dL Normal 250-450 Transferrin 320 mg/dL Normal 203-362 % Iron Saturation 4 % Low 15-55 Order 01/12/2019 [facility] In-House EKG viewed by Dr. Mandujano CBC Auto Diff 01/09/2019 [facility] White Blood 6.8 10^3/uL Normal 3.5-10.[address] [place], [place] [address] [phone] Red Blood Count 3.86 10^6/uL Normal 3.70-4.87 [...] Blood Cells % 0.0 Laboratory test 01/09/2019 [facility] Pathologist (SEE NOTE) [address] [place] [address] [phone] Laboratory test 01/09/2019 [facility] Lipase 22 U/L Normal 11.[address]. [place] [address] 0 [phone] HCG < 0.60 mIU/mL 25 Liver Function 01/09/2019 [facility] Total Protein 6.3 g/dL Low 6.4-8.[address] [place] [address] [phone] Albumin 3.6 g/dL Normal 3.2-5.2 Globulin 2.7 g/dL Normal 2-4 Albumin/Globulin Ratio 1.3 Normal 1-3 Total Bilirubin 0.20 mg/dL Normal 0.2-1.0 Direct Bilirubin 0.00 mg/dL Low 0.03-0.18 Alkaline Phosphatase 68 U/L Normal 34-104 Alt 14 U/L Normal 7-52 Ast 11 U/L Low 13-39 Basic Metabolic 01/09/2019 [facility] Sodium 137 mmol/L Normal 135-[address] [place] [address] [phone] Potassium 3.6 mmol/L Normal 3.5-5.0 Chloride 107 mmol/L Normal 101-111 Co2 Carbon Dioxide 25 mmol/L Normal 22-32 Anion Gap 5 mmol/L Normal 2-11 Glucose 120 mg/dL High 70-100 Blood Urea Nitrogen 6 mg/dL Normal 6-24 Creatinine 0.69 mg/dL Normal 0.51-0.95 BUN/Creatinine Ratio 8.7 Normal 8-20 Calcium 8.2 mg/dL Low 8.6-10.3 Egfr Non- 93.3 >60 Egfr 112.9 >60 26 CBC Auto 01/09/2019 [facility] White Blood 5.8 10^3/uL Normal 3.5-10.[address] [place] [place] [address] [phone] Red Blood Count 3.61 10^6/uL Low 3.70-4.87 [...] % Nucleated Red Blood Cells % 0.1 Stool Occult 01/09/2019 [facility] Stool Occult SEE RESULT 27 Blood, Screen [address] Blood, [place] [address] [phone] 1 [id number] 2 SEE RESULT BELOW Name: FARTUN SALEEM Davion : [address]: Ember Godoy NP [facility] Acct: [id number] Unit: [id number] AGE: 44 Location: [facility] Re06/08/19 SEX: F Status: REG REF SPEC: [id number] BOOKER: 06/08/19-[address]: Ember Godoy NP [facility] REQ: [id number] RECD: 06/08/19 STATUS: COMP _ SOURCE: VAGINAL SPDESC: ORDERED: Susanna,Yeast DNA, Trich DNA COMMENTS: [id number] Would you like to order Trichomonas Vaginalis testing? Yes Procedure Result Reported Site Gardnerella/Yeast: Vaginal DNA Final 06/09/19- 1422 ML Organism 1 Negative Benita Organism 2 Negative Gardnerella The presence of G. vaginalis, although suggestive, is not diagnostic for bacterial vaginosis. Results should be interpreted in conjuction with other clinical and laboratory data available. Women with vaginal discharge should be evaluated for risk factors of cervicitis and pelvic inflammatory disease, toxic shock syndrome (S.aureus), and if present, evaluated for organisms not included in this assay such as N. gonorrhoeae, C. trachomatis, Mobiluncus, Mycoplasma and/or Prevotella. Mixed infections may occur. The performance of this test on patient specimens collected during or immediately after antimicrobial therapy is unknown. The presence or absence of Benita species, or G. vaginalis cannot be used as a test for therapeutic success or failure. Trichomonas: Vaginal DNA Probe Final 06/09/19- 1422 ML Organism 1 Negative Trichomonas CONTINUED ON NEXT PAGE DEPARTMENT OF PATHOLOGY, [address] [place] [address] Inocencio Jernigan M.D. Director [facility] # [id number] Patient: FARTUN SALEEM [id number] (Continued) Specimen: [id number] Collected: 06/08/19-1023 Received: 06/08/19-1441 (Continued) Procedure Result Reported Site Trichomonas: Vaginal DNA Probe Final (continued) 06/09/19- 1421 The presence or absence of T. vaginalis cannot be used as a test for therapeutic success or failure. * - Main Lab . END OF REPORT DEPARTMENT OF PATHOLOGY, [address] [place] [address] Inocencio Jernigan M.D. Director [facility] # [id number] 3 [id number] 4 SEE RESULT BELOW Name: FARTUN SALEEM Davion : [address]: Ember Godoy NP, CNM Acct: [id number] Unit: [id number] AGE: 44 Location: [facility] Re06/08/19 SEX: F Status: REG REF SPEC: [id number] BOOKER: 06/08/19-[address] [facility] DR: Ember Godoy NP [facility] REQ: [id number] RECD: 06/08/191183 STATUS: ARISTIDES LEDBETTER DR: Lydia Deleon MD _ ORDERED: LEVEL 4 COMMENTS: [id number] FINAL DIAGNOSIS Uterus, endometrium, biopsy: -- Secretory endometrium. -- No evidence of hyperplasia or malignancy identified. PRE-OPERATIVE DIAGNOSIS Abnormal uterine bleeding GROSS DESCRIPTION The specimen is received in formalin labeled, EM BX, and consists of a 2.4 x 1.5 x 0.5 cm aggregate of godinez-pink irregular to cylindrical soft tissue fragments admixed with scant red-brown blood clot. Entirely submitted, one cassette. Signed by and Reported on: Inocencio Jernigan MD 1534 END OF REPORT DEPARTMENT OF PATHOLOGY, [address] [place] [address] Inocencio Jernigan M.D. Director [facility] # [id number] 5 Therapeutic target for the treatment of diabetes mellitus patients is <7% HBA1C, and in selective patients <6.0%. Please refer to [place] [employer] diabetic care guidelines for further information. 6 Because ethnic data is not always [...] 5 Kidney failure <15 (or dialysis) 7 [facility] Severe Sepsis and Septic Shock Management Bundle Measure requires all lactic acids initially measuring >2.0 mmol/L be repeated. 8 Urine Source: Clean Catch 9 Copy Result to: BEE SALGADO ([id number]) 10 Normal Range 180 to 914 Indeterminate Range 145 to 180 Deficient Range <145 11 ADDITIONAL INFORMATION This test was developed and its performance characteristics determined by [facility] in a manner consistent with CLIA requirements. This test has not been cleared or approved by the U.S. Food and Drug Administration. Test Performed by: [facility] [place] [address] Radio Artist: Octaviano Jay M.D. Ph.D.; CLIA# [id number] 12 Copy Result to: BEE SALGADO ([id number]) 13 Because ethnic data is not always readily [...] 15-29 5 Kidney failure <15 (or dialysis) 14 Desirable: <150 Borderline High: 150-199 High: 200-499 Very High: >500 15 Desirable: <200 Borderline High: 200-239 High: >239 16 Low: <40 Desirable: 40-60 High: >60 17 Desirable: <100 Near Optimal: 100-129 Borderline High: 130-159 High: 160-189 Very High: >189 18 Because ethnic data is not always readily [...] 15-29 5 Kidney failure <15 (or dialysis) 19 SEE RESULT BELOW Name: FARTUN SALEEM DOB: [address]: Chantel Upton MD Acct: [id number] Unit: [id number] AGE: 43 Location: [facility] Re01/26/19 SEX: F Status: REG REF SPEC: [id number] BOOKER: 01/26/[address]: Bee Salgado MD REQ: [id number] RECD: 01/26/19 STATUS: COMP _ SOURCE: URINE SPDESC: ORDERED: Urine Culture Procedure Result Reported Site Urine Culture Final 01/28/19- 09 ML Organism 1 KLEBSIELLA PNEUMONIAE [place] Count >100,000 (Many) CFU/ML 1. KLEBSIELLA PNEUMONIAE [...] . END OF REPORT DEPARTMENT OF PATHOLOGY, [address] [place] [address] Inocencio Jernigan M.D. Director [facility] # [id number] 20 Microcytic anemia with red cell indices suggestive of iron deficiency. Additional studies as clinically warranted. Reviewed by Dr. Jernigan 21 Therapeutic target for the treatment of diabetes mellitus patients is <7% HBA1C, and in selective patients <6.0%. Please refer to [place] [employer] diabetic care guidelines for further information. 22 Normal Range 180 to 914 Indeterminate Range 145 to 180 Deficient Range <145 23 Consistent with Previous Results Reported on 01/09/19. 24 Microcytic anemia. Reviewed by Rhonda Pisano MD 25 <5.0 Negative 5.0 - 25.0 Indeterminate (Repeat testing recommended after 72 hours) >25.0 Positive Perimenopausal women can display HCG levels of up to 20 mIU/mL 26 Because ethnic data is not always readily [...] 15-29 5 Kidney failure <15 (or dialysis) 27 SEE RESULT BELOW Name: FARTUN SALEEM : [address]: Fernando Basurto MD Acct: [id number] Unit: [id number] AGE: 43 Location: ED Re01/09/19 SEX: F Status: REG ER SPEC: [id number] BOOKER: 01/09/19 [facility] DR: Fernando Basurto MD REQ: [id number] RECD: 01/09/19 STATUS: LORNA LEDBETTER DR: Bee Salgado MD _ SOURCE: STOOL SPDESC: ORDERED: Occult Bl, Scn Procedure Result Reported Site Stool Occult Blood (1) Final 01/09/19- 0708 ML Stool Occult Blood Negative Collection Date (1) 01/09/19 * ML - Main Lab . END OF REPORT DEPARTMENT OF PATHOLOGY, [address] [place] [address] Inocencio Jernigan M.D. Director [facility] # [id number] Procedures Date Code Description Status 06/08/2019 59133 Endometrial Sampling W Or W/O Endocervical BX W Or W/O Completed Cerv Dilat 06/05/2019 84665 ECHO Transthoracic, Real-Time 2D With Doppler And Completed Color Flow 06/05/2019 99620 ECHO Transthoracic, Real-Time 2D With Doppler And Completed Color Flow 06/01/2019 74765 Stress Test Completed 06/01/2019 65058 Myocardial Perfusion Imaging Tomographic (Spect) Completed Multiple Studies 05/24/2019 865314046 Diabetic Retinal Eye Exam Completed 05/15/2019 04009 EKG Tracing & Interpretation Completed 02/13/2019 04118 Stress Test Supervsn W/Out I/R Completed 02/13/2019 52517 Treadmill Interp/Report Only Completed 02/13/2019 60563 Stress ECHO Interpretation/Report Hospital Completed 02/13/2019 71936 Use Of ECHO Contrast Agent During Stress ECHO Completed 01/12/2019 35308 EKG Tracing & Interpretation Completed 11/14/2018 208865510 Diabetic Retinal Eye Exam Completed 05/18/2018 79870739 Mammogram Completed 03/10/2017 565642968 Diabetic Retinal Eye Exam Completed 08/20/2016 83563110 Mammogram Completed 11/21/2015 744222367 Diabetic Retinal Eye Exam Completed 09/20/2014 76491314 Mammogram Completed Medical Devices Description No Information Available Encounters Type Date Location Provider Dx Diagnosis Office Visit 05/15/2019 [facility] Lan Molina R06.02 Shortness of 10:00a [facility] Jarvis Farnsworth breath Z01.810 Encounter for preprocedural cardiovascular examination R07.9 Chest pain, unspecified Office Visit 05/09[facility]2019 [facility] Godoy, N92.0 Excessive and [facility] WEATHERIZATION COORDINATOR-Cde frequent menstruation with regular cycle F17.210 Nicotine dependence, cigarettes, uncomplicated Office Visit 04/26/2019 10:50a [facility] Internal Jordyn E11.9 Type 2 diabetes Medicine - Jarvis Smith mellitus without Ccmob complications N92.0 Excessive and frequent menstruation with regular cycle Z23 Encounter for immunization L08.9 Local infection of the skin and subcutaneous tissue, unsp F17.210 Nicotine dependence, cigarettes, uncomplicated Office Visit 04/10/2019 10:00a [facility] Wilfredo Shore, D64.9 Anemia , [facility] MANAGER [employer]AC[employer] unspecified G47.33 Obstructive sleep apnea (adult) (pediatric) G43.009 Migraine w/o aura, not intractable, w/o status migrainosus Office Visit 03/19/2019 Pulmonology And Lydia G47.33 Obstructive sleep 3:00p [facility] [place] apnea (adult) [facility] (pediatric) F17.210 Nicotine dependence, cigarettes, uncomplicated J45.909 Unspecified asthma, uncomplicated Office Visit 02/13/2019 [facility] Gastroenterology Elissa D64.9 Anemia, 2:00p Rhonda unspecified TRACY Mae Z79.84 care home (current) use of oral hypoglycemic drugs Office Visit 02/06/2019 [facility] Internal Medicine Chantel Upton, E16.1 Other 11:00a - Ccmob hypoglycemia Office Visit 02/02/2019 [facility] Gastroenterology Elissa D64.9 Anemia, 11:15a Rhonda unspecified TRACY Mae 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 E11.9 Type 2 diabetes mellitus without complications F17.210 Nicotine dependence, cigarettes, uncomplicated Office Visit 01/26/2019 11:40a [facility] Internal Bee Salgado, D64.9 Anemia, Medicine - [facility] unspecified R10.12 Left upper quadrant pain E11.9 Type 2 diabetes mellitus without complications Office Visit 01/15/2019 1:00p Pulmonology And Lydia R06.02 Shortness of Sleep Services Of TRACY Caldwell breath [facility] F17.210 Nicotine dependence, cigarettes, uncomplicated J45.909 Unspecified asthma, uncomplicated G47.33 Obstructive sleep apnea (adult) (pediatric) R53.83 Other fatigue Office Visit 01/12/2019 2:20p [facility] Internal Alysia Z01.818 Encounter for other Medicine - DO Delbert preprocedural Suite R examination G56.01 Carpal tunnel syndrome, right upper limb D64.9 Anemia, unspecified R07.9 Chest pain, unspecified Office Visit 01/08/2019 10:00a [facility] Wilfredo Shore, G56.01 Carpal tunnel Services [facility] [employer] syndrome, right upper limb G43.009 Migraine w/o aura, not intractable, w/o status migrainosus Office Visit 12/19/2018 10:15a [facility] Pito G56.01 Carpal tunnel at Perla Nieto MD syndrome, right upper limb 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 06/13/2019 Z01.810 Encounter for preprocedural Lan Farnsworth M.D. cardiovascular examination 06/08/2019 N92.0 Excessive and frequent menstruation Holli Marie with regular cycle 06/08/2019 E66.9 Obesity, unspecified Holli Marie 06/05/2019 R06.02 Shortness of breath Lan Farnsworth M.D. 06/05/2019 R06.02 Shortness of breath Traveling ECHO 1 06/04/2019 N92.0 Excessive and frequent menstruation Holli Marie with regular cycle 06/04/2019 F17.210 Nicotine dependence, cigarettes, Holli Marie uncomplicated 06/04/2019 E66.9 Obesity, unspecified LUIS DANIEL Marie-Cdyoav 06/01/2019 R06.02 Shortness of breath Lan Farnsworth M.D. 05/15/2019 R06.02 Shortness of breath Lan Farnsworth M.D. 05/15/2019 Z01.810 Encounter for preprocedural Lan Farnsworth M.D. cardiovascular examination 05/15/2019 R07.9 Chest pain Lan Farnsworth M.D. 05/09/2019 N92.0 Excessive and frequent menstruation Holli Marie with regular cycle 05/09/2019 F17.210 Nicotine dependence, cigarettes, Holli Marie uncomplicated 04/26/2019 E11.9 Type 2 diabetes mellitus without Jordyn Smith M.D. complications 04/26/2019 N92.0 Excessive and frequent menstruation Jordyn Smith M.D. with regular cycle 04/26/2019 Z23 Encounter for immunization Jordyn Smith M.D. 04/26/2019 L08.9 Local infection of the skin and Jordyn Smith M.D. subcutaneous tissue, unspecified 04/26/2019 F17.210 Nicotine dependence, cigarettes, Jordyn Smith M.D. uncomplicated 04/10/2019 D64.9 Anemia, unspecified Wilfredo Shore NP 04/10/2019 G47.33 Obstructive sleep apnea (adult) Wilfredo Shore NP (pediatric) 04/10/2019 G43.009 Migraine without aura, not intractable, Wilfredo Shore NP without status migrainosus 03/19/2019 G47.33 Obstructive sleep apnea (adult) Lydia Caldwell NP (pediatric) 03/19/2019 F17.210 Nicotine dependence, cigarettes, Lydia Caldwell NP uncomplicated 03/19/2019 J45.909 Unspecified asthma, uncomplicated Lydia Caldwell NP 02/13/2019 D64.9 Anemia, unspecified Elissa Mae NP 02/13/2019 Z01.810 Encounter for preprocedural Lan D. Brand, M.D. cardiovascular examination 02/13/2019 Z79.84 care home (current) use of oral Elissa Mae NP hypoglycemic drugs 02/06/2019 E16.1 Other hypoglycemia Chantel Upton MD 02/02/2019 D64.9 Anemia, unspecified Elissa Mae, TRACY 02/02/2019 Z79.84 care home (current) use of oral Elissa Mae [employer] hypoglycemic drugs 02/02/2019 E11.9 Type 2 diabetes mellitus without Elissa Mae, [employer] complications 02/02/2019 F17.210 Nicotine dependence, cigarettes, Elissa Mae NP uncomplicated 01/26/2019 D64.9 Anemia, unspecified Bee Salgado MD 01/26/2019 R10.12 Left upper quadrant pain Bee Salgado MD 01/26/2019 E11.9 Type 2 diabetes mellitus without Bee Salgado MD complications 01/15/2019 R06.02 Shortness of breath Lydia Caldwell NP 01/15/2019 F17.210 Nicotine dependence, cigarettes, Lydia Caldwell NP uncomplicated 01/15/2019 J45.909 Unspecified asthma, uncomplicated Lydia Caldwell NP 01/15/2019 G47.33 Obstructive sleep apnea (adult) Lydia Caldwell NP (pediatric) 01/15/2019 R53.83 Other fatigue Lydia Caldwell NP 01/12/2019 Z01.818 Encounter for other preprocedural Alysiaralph Mandujano, DO examination 01/12/2019 G56.01 Carpal tunnel syndrome, right upper Alysia Senner, DO limb 01/12/2019 D64.9 Anemia, unspecified Alysia Senner, DO 01/12/2019 R07.9 Chest pain, unspecified Alysia Senner, DO 01/08/2019 G56.01 Carpal tunnel syndrome, right upper Wilfredo Shore, TRACY limb 01/08/2019 G43.009 Migraine without aura, not intractable, Wilfredo Shore [employer] without status migrainosus 12/19/2018 G56.01 Carpal tunnel syndrome, right upper Pito Nieto MD limb 12/19/2018 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 j Plan of Treatment Future Appointment(s):07/26/2019 10:30 am - Lydia Deleon MD at [facility]09/26/2019 10:00 am - Bee Salgado MD at [facility] Internal Medicine - [facility]10/09/2019 10:00 am - Yuriy Diamond N.P. at [facility]07/23/2019 10:30 am - Lydia Caldwell NP at [facility]04/10/2019 - Wilfredo Shore NPD64.9 Anemia, unspecifiedFollow up:6 HYKSURH91.33 Obstructive sleep apnea (adult) (pediatric)G43.009 Migraine without aura, not intractable, without status migrainosus Functional Status Description No Information Available Mental Status Description No Information Available Referrals Refer to Dr Reason for Referral Status Appt Date Lydia Deleon MD Sent 05/09/2019 [address] [facility], [place] [address] [phone] Lan Farnsworth MD Sent 04/25/2019 [facility] [place] [address] [phone] Elissa Mae NP Sent 01/23/2019 [address] [place] [address] [phone]
--- OUTSIDE RECORDS SUMMARY | 2019-07-23 10:51 | XMS REPORT | Continuity of Care Document ---
:1975 External Reference #:[id number] Author Name LUIS DANIEL Marie-Cde (transmitted by agent of provider Hermelinda Ramirez) Address [address], [place] [address] Care Team Providers Name Role Phone Steve Doran MD - Ophthalmology Care Team Information Supplier Manager [phone] Lydia Weaver M.D. - Surgery of Care Team Information Supplier Manager [facility] Healthy Living - Care Team Information Supplier Manager [phone] Boiler/Chiller Operator Pito Nieto MD - Hand Surgery Care Team Information Supplier Manager Bee Salgado M.D. - Family Medicine Care Team Information Supplier Manager [phone] Problems Active Problems Provider Date Asthma without [...] Comments Sex Unknown Tobacco Use Start: Unknown current cigarette smoker Tobacco Use Start: Unknown Patient is a current cigarette smoker, smokes every day Tobacco Use Start: Unknown Current Cigarette Smoker 1 Pack Daily Smoking Status Reviewed: 06/08/19 Current Cigarette Smoker 1 Pack Daily ETOH Use consumes 6-7 beers per week Recreational Drug Use Never [...] XL Take one tablet 90tabs E16.1 Mirtha Karmen, 02/06/2019 5mg daily Jarvis, FACP Tablets ER [...] Everyday AT 20mg Tablets Bedtime Losartan Potassium Take 1 Tablet By 30tabs E11.9 Chantel Upton MD 2016 25mg Mouth Every Day Tablets Synthroid take 1 tablet by 30tabs Bee [...] Tablets day with 20mg tab (rx'd by [facility]) Bupropion 1 tablet by mouth Unknown Hydrochloride ER (XL) daily 150mg Tablets ER 24HR Hydroxyzine HCL 2 tablets by Unknown 25mg mouth at bedtime Tablets History Medications Mupirocin apply a thin layer 22gm Jordyn Smith, 05/03/2019 - 2% Ointment on the skin of M.DLeroy 06/01/2019 affected area twice a day for 5 days Ciprofloxacin HCL 1 by mouth twice a 14tabs Chantel Upton MD 01/31/2019 - 250mg day 04/09/2019 Tablets Propranolol HCL Take one tab by 60tabs Kvng Cintron 01/08/2019 - 10mg mouth in the CarolynJarvis 03/19/2019 Tablets morning and at night. take with 20 mg tablet for a total of 30 mg. Glipizide Take 1 Tablet By 30tabs Bee Salgado MD 12/08/2018 - 10mg Tablets Mouth Every Day 04/09/2019 Medications Administered in Office Medication SIG Qnty Indications Ordering Provider Date Inj, Regadenoson, 0.1 MG Lan Farnsworth M.D. 06/01/2019 Injection Aminophylline Lan Farnsworth M.D. 06/01/2019 Injection Technetium TC 99M TetrofosminLan M.D. 06/01/2019 [...] CPT Code Status Date Vaccine Lot # [id number] Given 04/26/2019 Influenza Virus Vaccine, Quadrivalent ([id number]), [id number] Derived From Cell 40326 Given 02/24/2018 Influenza Virus Vaccine, Quadrivalent, Split, Preservative Free 82804 Given 07/30/2016 Pneumonia Vaccine [id number] 34303 Given 01/26/2015 Influenza Virus Vaccine, Quadrivalent, Split, Preservative Free 53870 Given 10/24/2014 Tdap - Tetanus/Diptheria/Acellular Pertussis [id number] 11737 Given 01/24/2014 Flu Vaccine Split Virus Preservative Free For Indiv [id number] Older Vital Signs Date Vital Result Comment 06/08/2019 9:57am Height 63.25 inches 5'3.25" Weight 219.38 lb Heart Rate 66 /min BP Systolic 108 mmHg BP Diastolic 69 mmHg O2 % BldC Oximetry 96 % BMI (Body Mass Index) 38.5 kg/m2 06/04/2019 9:42am Height 63.25 inches 5'3.25" Weight 223.00 lb Heart Rate 83 /min BP Systolic 128 mmHg BP Diastolic 83 mmHg O2 % BldC Oximetry 96 % BMI (Body Mass Index) 39.2 kg/m2 Results Test Acquired Date Facility Test Result H/L Range Note Laboratory test 06/08/2019 [facility] Gardnerella/Ye <pending> finding DRIVE ast: [place] [address] Dna [phone] Laboratory test 06/08/2019 [facility] Surgical <pending> [place] [address] [phone] Laboratory test 06/04/2019 [facility] Hemoglobin A1c 6.1 % High 4.0-5.6 1 finding (Glyco HGB) [place] [address] [phone] Comp Metabolic 04/26/2019 [facility] Sodium 136 mmol/L Normal 135-[address] [place] [address] [phone] Potassium 3.8 mmol/L Normal 3.5-5.0 Chloride 105 [...] Egfr Non- 80.6 >60 Egfr 97.5 >60 2 Laboratory test 04/26/2019 [facility] Magnesium 2.0 mg/dL Normal 1.9-2.[address] [place] [address] [phone] Lipase 31 U/L Normal 11.0-82.0 C Reactive Protein 3.36 mg/L Normal <8.01 Lactic Acid 0.8 mmol/L Normal 0.5-2.0 3 CBC Auto 04/26/2019 [facility] White Blood 7.3 10^3/uL Normal 3.5-10.[address] [place] [address] [phone] Red Blood Count 4.54 10^6/uL Normal 3.70-4.87 [...] Blood Cells % 0.1 Urinalysis Profile 04/26/2019 [facility] Urine Color Straw [address] [place] [address] [phone] Urine Appearance Clear Urine Specific [place] 1.005 Low 1.010-1.030 Urine pH 5.0 Normal 5-9 Urine Urobilinogen Negative Negative Urine Ketones Negative Negative Urine Protein Negative Negative Urine Leukocytes Negative Negative Urine Blood Negative Negative Urine Nitrite Negative Negative Urine Bilirubin Negative Negative Urine Glucose Negative Negative Cell Morphology 04/10/2019 [facility] Microcytosis 1+ 5 [address] [place] [address] [phone] Anisocytosis 2+ Iron & Iron Binding 04/10/2019 [facility] Iron 51 g/dL Normal 50-212 Capacity [address] [place] [address] [phone] Unsaturated Iron Binding < 369 g/dL Total Iron Binding Capacity 384 g/dL Normal 250-450 Transferrin 274 mg/dL Normal 203-362 % Iron Saturation 13 % Low 15-55 Laboratory test 04/10/2019 [facility] Vitamin B12 242 pg/mL Normal 180-914 6 finding [address] [place] [address] [phone] Methylmalonic Acid Mma 0.11 nmol/mL <=0.40 7 Ferritin 14.5 ng/mL Normal 11-307 8 Comp Metabolic 04/10/2019 [facility] Sodium 139 mmol/L Normal 135-145 Panel [address] [place] [address] [phone] Potassium 4.7 mmol/L Normal 3.5-5.0 Chloride 106 [...] Egfr Non- 83.1 >60 Egfr 100.5 >60 9 CBC Auto 04/10/2019 [facility] White Blood 6.8 10^3/uL Normal 3.5-10.8 Diff [address] [place] [address] [phone] Red Blood Count 4.85 10^6/uL Normal 3.70-4.87 [...] Blood Cells % 0.1 Lipid Profile 01/26/2019 [facility] Triglycerides 216 mg/dL 10 (Trig/Chol/HDL) [address] [place] [address] [phone] Cholesterol 131 mg/dL 11 HDL Cholesterol 33.4 mg/dL 12 LDL Cholesterol 54 mg/dL 13 Laboratory 01/26/2019 [facility] TSH (Thyroid 1.86 Normal 0.34 -5.60 test finding [address] [facility] Stim Horm) mcIU/[place] [address] [phone] Comp Metabolic 01/26/2019 [facility] Sodium 136 mmol/L Normal 135-145 Panel [address] [place] [address] [phone] Potassium 4.6 mmol/L Normal 3.5-5.0 Chloride 105 [...] Egfr Non- 87.4 >60 Egfr 105.8 >60 14 Urine Culture And 01/26/2019 [facility] Urine Culture SEE RESULT [address] [place] [address] [phone] Urinalysis Profile 01/26/2019 [facility] Urine Color Yellow [address] [place] [address] [phone] Urine Appearance Cloudy Urine Specific [place] 1.010 Normal 1.010-1.030 Urine pH 5.0 Normal [...] Cell Present Abnormal Absent Laboratory test 01/26/2019 [facility] Pathologist Review (SEE NOTE) [address] [place] [address] [phone] Cell Morphology 01/26/2019 [facility] Macrocytosis 2+ [place] [address] [phone] Microcytosis 1+ Hypochromasia 1+ Polychromasia 1+ Anisocytosis 2+ Laboratory test 01/26/2019 [facility] Hemoglobin A1c 5.7 % High 4.0-5.[address] (Glyco HGB) [place] [address] [phone] Vitamin B12 And 01/26/2019 [facility] Vitamin B12 175 Low 180- 914 18 Folate Serum [address] [facility] pg/mL [place], [place] [id number] [phone] Folic Acid (Folate) 13.38 ng/mL >3.99 CBC Auto 01/26/2019 [facility] White Blood 10.0 10^3/uL Normal 3.5-10.[address] [place] [address] [phone] Red Blood Count 4.61 10^6/uL Normal 3.70-4.87 Hemoglobin 10.1 g/dL Low 12.0-16.0 Hematocrit 32 % Low 35-47 Mean Corpuscular Volume 70 fL Low 80-97 19 Mean Corpuscular Hemoglobin 22 pg Low 27-31 [...] Blood Cells % 0.1 Laboratory test 01/26/2019 [facility] Ferritin 10.5 ng/mL Low 11-307 finding [address] [place] [address] [phone] Iron & Iron Binding 01/26/2019 [facility] Iron 20 g/dL Low 50-212 Capacity [address] [place] [address] [phone] Unsaturated Iron Binding < 433 g/dL Total Iron Binding Capacity 448 g/dL Normal 250-450 Transferrin 320 mg/dL Normal 203-362 % Iron Saturation 4 % Low 15-55 Order 01/12/2019 Maintenance Controller In-House EKG viewed by Dr. Mandujano CBC Auto Diff 01/09/2019 [facility] White Blood 6.8 10^3/uL Normal 3.5-10.[address] [place] [address] [phone] Red Blood Count 3.86 10^6/uL Normal 3.70-4.87 [...] Blood Cells % 0.0 Laboratory test 01/09/2019 [facility] Pathologist (SEE NOTE) [address] [place] [address] [phone] Laboratory test 01/09/2019 [facility] Lipase 22 U/L Normal 11.[address] [place] [address] [phone] HCG < 0.60 mIU/mL 21 Liver Function 01/09/2019 [facility] Total Protein 6.3 g/dL Low 6.4-8.[address] [place] [address] [phone] Albumin 3.6 g/dL Normal 3.2-5.2 Globulin 2.7 g/dL Normal 2-4 Albumin/Globulin Ratio 1.3 Normal 1-3 Total Bilirubin 0.20 mg/dL Normal 0.2-1.0 Direct Bilirubin 0.00 mg/dL Low 0.03-0.18 Alkaline Phosphatase 68 U/L Normal 34-104 Alt 14 U/L Normal 7-52 Ast 11 U/L Low 13-39 Basic Metabolic 01/09/2019 [facility] Sodium 137 mmol/L Normal 135-[address] [place] [address] [phone] Potassium 3.6 mmol/L Normal 3.5-5.0 Chloride 107 mmol/L Normal 101-111 Co2 Carbon Dioxide 25 mmol/L Normal 22-32 Anion Gap 5 mmol/L Normal 2-11 Glucose 120 mg/dL High 70-100 Blood Urea Nitrogen 6 mg/dL Normal 6-24 Creatinine 0.69 mg/dL Normal 0.51-0.95 BUN/Creatinine Ratio 8.7 Normal 8-20 Calcium 8.2 mg/dL Low 8.6-10.3 Egfr Non- 93.3 >60 Egfr 112.9 >60 22 CBC Auto 01/09/2019 [facility] White Blood 5.8 10^3/uL Normal 3.5-10.[address] [place] [address] [phone] Red Blood Count 3.61 10^6/uL Low 3.70-4.87 [...] Blood Cells % 0.1 Stool Occult 01/09/2019 [facility] Stool Occult SEE RESULT 23 Blood, Screen [address] Blood, Screen BELOW [place] [id number] [phone] 1 Therapeutic target for the treatment of diabetes mellitus patients is <7% HBA1C, and in selective patients <6.0%. Please refer to [place] [employer] diabetic care guidelines for further information. 2 Because ethnic data is not always [...] 5 Kidney failure <15 (or dialysis) 3 [facility] Severe Sepsis and Septic Shock Management Bundle Measure requires all lactic acids initially measuring >2.0 mmol/L be repeated. 4 Urine Source: Clean Catch 5 Copy Result to: BEE SALGADO ([id number]) 6 Normal Range 180 to 914 Indeterminate Range 145 to 180 Deficient Range <145 7 ADDITIONAL INFORMATION This test was developed and its performance characteristics determined by [facility] in a manner consistent with CLIA requirements. This test has not been cleared or approved by the U.S. Food and Drug Administration. Test Performed by: [facility] - [address] [address] Metal Washing Machine Operator: Octaviano Jay M.D. Ph.D.; CLIA# [id number] 8 Copy Result to: BEE SALGADO ([id number]) 9 Because ethnic data is not always readily [...] 15-29 5 Kidney failure <15 (or dialysis) 10 Desirable: <150 Borderline High: 150-199 High: 200-499 Very High: >500 11 Desirable: <200 Borderline High: 200-239 High: >239 12 Low: <40 Desirable: 40-60 High: >60 13 Desirable: <100 Near Optimal: 100-129 Borderline High: 130-159 High: 160-189 Very High: >189 14 Because ethnic data is not always readily [...] 15-29 5 Kidney failure <15 (or dialysis) 15 SEE RESULT BELOW Name: FARTUN SALEEM : [address]: Chantel Upton MD Acct: [id number] Unit: [id number] AGE: 43 Location: [facility] Re01/26/19 SEX: F Status: REG REF SPEC: [id number] BOOKER: 01/26/[address]: Bee Salgado MD REQ: [id number] RECD: 01/26/19 STATUS: COMP _ SOURCE: URINE SPDESC: ORDERED: Urine Culture Procedure Result Reported Site Urine Culture Final 01/28/19- 940 ML Organism 1 KLEBSIELLA PNEUMONIAE [place] Count >100,000 (Many) CFU/ML 1. KLEBSIELLA PNEUMONIAE [...] . END OF REPORT DEPARTMENT OF PATHOLOGY, [address] [place] [address] Inocencio Jernigan M.D. Director [facility] # [id number] 16 Microcytic anemia with red cell indices suggestive of iron deficiency. Additional studies as clinically warranted. Reviewed by Dr. Jernigan 17 Therapeutic target for the treatment of diabetes mellitus patients is <7% HBA1C, and in selective patients <6.0%. Please refer to [place] [employer] diabetic care guidelines for further information. 18 Normal Range 180 to 914 Indeterminate Range 145 to 180 Deficient Range <145 19 Consistent with Previous Results Reported on 01/09/19. 20 Microcytic anemia. Reviewed by Rhonda Psiano MD 21 <5.0 Negative 5.0 - 25.0 Indeterminate (Repeat testing recommended after 72 hours) >25.0 Positive Perimenopausal women can display HCG levels of up to 20 mIU/mL 22 Because ethnic data is not always readily [...] 15-29 5 Kidney failure <15 (or dialysis) 23 SEE RESULT BELOW Name: FARTUN SALEEM Davion : [address]: Fernando Basurto MD Acct: [id number] Unit: [id number] AGE: 43 Location: ED Re01/09/19 SEX: F Status: REG ER SPEC: [id number] BOOKER: 01/09/[address] [facility] [address]: Fernando Basurto MD REQ: [id number] RECD: 01/09/19 STATUS: COMP ANATOLY DR: Bee Salgado MD _ SOURCE: STOOL SPDESC: ORDERED: Occult Bl, Scn Procedure Result Reported Site Stool Occult Blood (1) Final 01/09/19- 0708 ML Stool Occult Blood Negative Collection Date (1) 01/09/19 * ML - Main Lab . END OF REPORT DEPARTMENT OF PATHOLOGY, [address] [place] [address] Inocencio Jernigan M.D. Director [facility] # [id number] Procedures Date Code Description Status 06/05/2019 84169 ECHO Transthoracic, Real-Time 2D With Doppler And Completed Color Flow 06/01/2019 79467 Myocardial Perfusion Imaging Tomographic (Spect) Completed Multiple Studies 05/24/2019 239506541 Diabetic Retinal Eye Exam Completed 05/15/2019 68156 EKG Tracing & Interpretation Completed 02/13/2019 18574 Use Of ECHO Contrast Agent During Stress ECHO Completed 02/13/2019 03433 Stress ECHO Interpretation/Report Hospital Completed 02/13/2019 63973 Treadmill Interp/Report Only Completed 02/13/2019 17350 Stress Test Supervsn W/Out I/R Completed 01/12/2019 22046 EKG Tracing & Interpretation Completed 11/14/2018 [id number] Diabetic Retinal Eye Exam Completed 05/18/2018 14034116 Mammogram Completed 03/10/2017 074242150 Diabetic Retinal Eye Exam Completed 08/20/2016 30751763 Mammogram Completed 11/21/2015 812480834 Diabetic Retinal Eye Exam Completed 09/20/2014 24601326 Mammogram Completed Medical Devices Description No Information Available Encounters Type Date Location Provider Dx Diagnosis Office Visit 05/15/2019 [facility] Lan Molina R06.02 Shortness of 10:00a Of Jozef Farnsworth M.D. 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 mellitus without Ccmob complications N92.0 Excessive and frequent menstruation with regular cycle Z23 Encounter for immunization L08.9 Local infection of the skin and subcutaneous tissue, unsp F17.210 Nicotine dependence, cigarettes, uncomplicated Office Visit 04/10/2019 10:00a [facility] Wilfredoguillermina Shore, D64.9 Anemia , [facility] CREATIVE INTERN unspecified G47.33 Obstructive sleep apnea (adult) (pediatric) G43.009 Migraine w/o aura, not intractable, w/o status migrainosus Office Visit 03/19/2019 Pulmon[facility] And Lydia G47.33 Obstructive sleep 3:00p [facility] TRACY Caldwell apnea (adult) [facility] (pediatric) F17.210 Nicotine dependence, cigarettes, uncomplicated J45.909 Unspecified asthma, uncomplicated Office Visit 02/13/2019 [facility] Elissa D64.9 Anemia, 2:00p Rhonda unspecjaya Mae NP Z79.84 prison (current) use of oral hypoglycemic drugs Office Visit 02/06/2019 [facility] Chantel Won, E16.1 Other 11:00a - Ccmlittle BEDOLLA hypoglycemia Office Visit 02/02/2019 [facility] Elissa D64.9 Anemia, 11:15a Rhonda unspecjaya Mae NP Z79.84 prison (current) use of oral hypoglycemic drugs E11.9 Type 2 diabetes mellitus without complications F17.210 Nicotine dependence, cigarettes, uncomplicated Office Visit 01/26/2019 11:40a [facility] Bee Salgado, D64.9 Anemia, Medicine - Ccmob unspecified R10.12 Left upper quadrant pain E11.9 Type 2 diabetes mellitus without complications Office Visit 01/15/2019 1:00p Pulmonology And Lydia R06.02 Shortness of [facility] breath [facility] F17.210 Nicotine dependence, cigarettes, uncomplicated J45.909 Unspecified asthma, uncomplicated G47.33 Obstructive sleep apnea (adult) (pediatric) R53.83 Other fatigue Office Visit 01/12/2019 2:20p [facility] Alysia Z01.818 Encounter for other Medicine - DO Delbert preprocedural [address] examination G56.01 Carpal tunnel syndrome, right upper limb D64.9 Anemia, unspecified R07.9 Chest pain, unspecified Office Visit 01/08/2019 10:00a [facility] Wilfredo Shore G56.01 Carpal tunnel [facility] CREATIVE INTERN syndrome, right upper limb G43.009 Migraine w/o aura, not intractable, w/o status migrainosus Office Visit 12/19/2018 10:15a [facility] Pito G56.01 Carpal tunnel at Perla Nieto MD syndrome, right upper limb 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, r hand Office Visit 12/12/2018 2:00p [facility] Chantel Won, I10 Essential ( primary) Medicine - Ccmob hypertension E11.9 Type 2 diabetes mellitus without complications F33.1 Major depressive disorder, recurrent, moderate E03.9 Hypothyroidism, unspecified Office Visit 12/12/2018 [facility] Elissa E66.01 Morbid 10:15a Rhonda (severe) TRACY Mae obesity due to excess calories R15.2 Fecal urgency Assessments Date Code Description Provider 06/08/2019 N92.0 Excessive and frequent menstruation LUIS DANIEL Marie-Cdyoav with regular cycle 06/08/2019 E66.9 Obesity, unspecified LUIS DANIEL Marie-Cdyoav 06/05/2019 R06.02 Shortness of breath Traveling ECHO 1 06/04/2019 N92.0 Excessive and frequent menstruation LUIS DANIEL Marie-Alex with regular cycle 06/04/2019 F17.210 Nicotine dependence, cigarettes, LUIS DANIEL Marie-Cde uncomplicated 06/04/2019 E66.9 Obesity, unspecified Holli Marie 06/01/2019 R06.02 Shortness of breath Lan Farnsworth [...] NP 02/13/2019 Z01.810 Encounter for preprocedural Lan Farnsworth M.D. 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 02/02/2019 E11.9 Type 2 diabetes mellitus without Elissa Mae NP complications 02/02/2019 F17.210 Nicotine dependence, cigarettes, Elissa [...] G56.01 Carpal tunnel syndrome, right upper Wilfredo Shore NP limb 01/08/2019 G43.009 Migraine without aura, not intractable, Wilfredo Shore NP without status migrainosus 12/19/2018 G56.01 Carpal tunnel syndrome, right upper Pito Nieto MD limb 12/19/2018 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 j 12/12/2018 E66.01 Morbid (severe) obesity due to excess Elissa Mae NP calories 12/12/2018 I10 Essential (primary) hypertension Chantel Upton MD 12/12/2018 R15.2 Fecal urgency Elissa Mae NP 12/12/2018 E11.9 Type 2 diabetes mellitus without Chantel Upton MD complications 12/12/2018 F33.1 Major depressive disorder, recurrent, Chantel Upton MD moderate 12/12/2018 E03.9 Hypothyroidism, unspecified Chantel Upton MD Plan of Treatment Future Appointment(s):07/26/2019 10:30 am - [facility]09/26/2019 10:00 am - Bee Salgado MD at [facility] Internal Medicine - Ccmob10/09/2019 10:00 am - Yuriy Diamond N.P. at [facility]07/23/2019 10:30 am - Lydia Caldwell NP at [facility]06/15/2019 10:15 am - Elissa Mae NP at [facility] Cdzueswccmsokxek51/17/2020 - LUIS DANIEL Marie-CdeN92.0 Excessive and frequent menstruation with regular mfldaP07.9 Obesity, unspecified Functional Status Description No Information Available Mental Status Description No Information Available Referrals Refer to Dr Reason for Referral Status Appt Date Lydia Deleon MD Sent 05/09/2019 [address] [facility], [place] [address] [phone] Lan Farnsworth MD Sent 04/25/2019 [address] [place] [address] [phone] Elissa Mae NP Sent 01/23/2019 [address] [place] [address] [phone]
--- OUTSIDE RECORDS SUMMARY | 2019-07-23 10:51 | XMS REPORT | Continuity of Care Document ---
:1975 External Reference #:[id number] Author Name Lydia Caldwell NP (transmitted by agent of provider Henny Bourgeois) Address [address] [facility], [address] [place] [phone] Care Team Providers Name Role Phone Steve Doran MD - Ophthalmology Care Team Information External Relations Director Lydia Desouza M.D. - Surgery of Care Team Information External Relations Director [phone] [facility] Healthy Living - Care Team Information External Relations Director Pay Clerk Pito Nieto MD - Hand Surgery Care Team Information External Relations Director Bee Salgado M.D. - Family Medicine Care Team Information External Relations Director Problems Active Problems Provider Date Asthma without [...] Former Cigarette Smoker Unknown Smoking Status Reviewed: 07/23/19 Former Cigarette Smoker ETOH Use consumes 3-4 beers per week Recreational Drug Use Never Used Drugs Tobacco Use Start: Unknown End: Patient is a former [employer] 05/22/19 Unknown smoker Exercise Type/Frequency Does not exercise Allergies, Adverse Reactions, Alerts Active Allergies Reaction Severity Comments Date Morphine Nausea, Vomiting 06/15/2010 Oxycodone Rash 06/15/2010 Latex Rash 02/28/2013 Bleach Contact dermatitis 07/16/2016 Milk Fat, Cow upset GI Mild 01/08/2019 Beets Preparation Nausea, Watery eyes 06/20/2019 Medications Active Medications SIG Qnty Indications Ordering Date Provider Vitamin B-12 Take one tab po 90tabs Kvng iCntron 04/17/2019 1000mcg daily Jarvis Leon Tablets Propranolol [...] bedtime Singulair take 1 tablet by 30tabs Maria Elena 04/24/2012 10mg Tablets mouth every day MD Silver Lexapro 1 by mouth every 30tabs Jacinda Pichardo, 06/15/2010 20mg Tablets day M.D. Prazosin HCL two by mouth Unknown 1mg every evening Capsules Lexapro 1 by mouth every Unknown 10mg Tablets day with 20mg tab (rx'd by [facility]) Bupropion 1 tablet by mouth Unknown Hydrochloride ER (XL) daily 150mg Tablets ER 24HR Hydroxyzine HCL 2 tablets by Unknown 25mg mouth at bedtime Tablets Gabapentin 1 tablet po at Unknown 600mg bedtime ( med Tablets change increase ) Omeprazole Take 1 Capsule By Unknown 20mg Mouth Every Day Capsules DR In The Morning 45 Min Before Eating Doxycycline Take 1 Capsule By Unknown Monohydrate Mouth Every Day 50mg Capsules History Medications Eql Omeprazole take first thing 90tabs Vikas Mazariegos, 07/17/2019 - 20mg Tablets in morning 45 MD 07/22/2019 DR minutes before eating Mupirocin apply a thin 22gm Jordyn Mckeean, 05/03/2019 - 2% Ointment layer on the skin M.DLeroy 06/01/2019 of affected area twice a day for 5 days Ciprofloxacin HCL 1 by mouth twice 14tabs Chantel Upton MD 01/31/2019 - 250mg a day 04/09/2019 Tablets Medications Administered in Office Medication SIG Qnty [...] CPT Code Status Date Vaccine Lot # [id number] Given 04/26/2019 Influenza Virus Vaccine, Quadrivalent ([id number]), [id number] Derived From Cell 32101 Given 02/24/2018 Influenza Virus Vaccine, Quadrivalent, Split, Preservative Free [id number] Given 07/30/2016 Pneumonia Vaccine [id number] Given 01/26/2015 Influenza Virus Vaccine, Quadrivalent, Split, Preservative Free 35501 Given 10/24/2014 Tdap - Tetanus/Diptheria/Acellular Pertussis [id number] Given 01/24/2014 Flu Vaccine Split Virus Preservative Free For Indiv [id number] Older Vital Signs Date Vital Result Comment 07/23/2019 9:51am Height 63.25 inches 5'3.25" Weight 232.00 lb Heart Rate 75 /min BP Systolic Sitting 118 mmHg BP Diastolic Sitting 80 mmHg O2 % BldC Oximetry 94 % BMI (Body Mass Index) 40.8 kg/m2 06/15/2019 9:47am Height 63.25 inches 5'3.25" Weight 221.38 lb Heart Rate 76 /min left radial regular BP Systolic Sitting 104 mmHg ule reg cuff BP Diastolic Sitting 60 mmHg ule reg cuff BMI (Body Mass Index) 38.9 kg/m2 Results Test Acquired Date Facility Test Result H/L Range Note Stool Occult 07/17/2019 [facility] Stool Occult SEE RESULT 1 Blood Diag [address] Blood, [place] [address] [phone] Laboratory test 07/17/2019 [facility] Clotest SEE RESULT [address] BELOW [place], [place] [id number] [phone] Laboratory test 06/08/2019 [facility] Gardnerella/Yea SEE RESULT 3, [address]: [place] [address] [phone] Surgical 06/08/2019 [facility] Surgical SEE RESULT 5, [address] Pathology BELOW [place], [place] [id number] [phone] PDFReport SEE IMAGE Laboratory test 06/04/2019 [facility] Hemoglobin A1c 6.1 % High 4.0-5.[address] (Glyco HGB) [place], [place] [address] [phone] Comp Metabolic 04/26/2019 [facility] Sodium 136 Normal 135- [address] mmol/[place] [address] [phone] Potassium 3.8 mmol/L Normal 3.5-5.0 Chloride 105 [...] Egfr Non- 80.6 >60 Egfr 97.5 >60 8 Laboratory test 04/26/2019 [facility] Magnesium 2.0 mg/dL Normal 1.9-2.[address] [place] [address] [phone] Lipase 31 U/L Normal 11.0-82.0 C Reactive Protein 3.36 mg/L Normal <8.01 Lactic Acid 0.8 mmol/L Normal 0.5-2.0 9 CBC Auto 04/26/2019 [facility] White Blood 7.3 10^3/uL Normal 3.5-10.[address] [place] [address] [phone] Red Blood Count 4.54 10^6/uL Normal 3.70-4.87 [...] Blood Cells % 0.1 Urinalysis Profile 04/26/2019 [facility] Urine Color Straw [address] [place] [address] [phone] Urine Appearance Clear Urine Specific [place] 1.005 Low 1.010-1.030 Urine pH 5.0 Normal 5-9 Urine Urobilinogen Negative Negative Urine Ketones Negative Negative Urine Protein Negative Negative Urine Leukocytes Negative Negative Urine Blood Negative Negative Urine Nitrite Negative Negative Urine Bilirubin Negative Negative Urine Glucose Negative Negative CBC Auto 04/10/2019 [facility] White Blood 6.8 10^3/uL Normal 3.5-10.[address] [place] [address] [phone] Red Blood Count 4.85 10^6/uL Normal 3.70-4.87 [...] Blood Cells % 0.1 Comp Metabolic 04/10/2019 [facility] Sodium 139 mmol/L Normal 135-[address] [place] [address] [phone] Potassium 4.7 mmol/L Normal 3.5-5.0 Chloride 106 [...] Egfr Non- 83.1 >60 Egfr 100.5 >60 12 Laboratory test 04/10/2019 [facility] Vitamin B12 242 pg/mL Normal 180-914 13 finding [address] [place] [address] [phone] Methylmalonic Acid Mma 0.11 nmol/mL <=0.40 14 Ferritin 14.5 ng/mL Normal 11-307 15 Iron & Iron Binding 04/10/2019 [facility] Iron 51 g/dL Normal 50-212 [address]acity [address] [place] [address] [phone] Unsaturated Iron Binding < 369 g/dL Total Iron Binding Capacity 384 g/dL Normal 250-450 Transferrin 274 mg/dL Normal 203-362 % Iron Saturation 13 % Low 15-55 Cell Morphology 04/10/2019 [facility] Microcytosis 1+ [address] [place], [place] [address] [phone] Anisocytosis 2+ Vitamin B12 And 01/26/2019 [facility] Vitamin B12 175 pg/mL Low 180-914 16 Folate Serum [address] [place] [address] [phone] Folic Acid (Folate) 13.38 ng/mL >3.99 Laboratory test 01/26/2019 [facility] Hemoglobin A1c 5.7 % High 4.0-5.6 17 finding 101 [facility] (Glyco HGB) [place] [address] [phone] Cell Morphology 01/26/2019 [facility] Macrocytosis 2+ [address] [place] [address] [phone] Microcytosis 1+ Hypochromasia 1+ Polychromasia 1+ Anisocytosis 2+ Laboratory test 01/26/2019 [facility] Pathologist (SEE NOTE) [address] [place] [address] [phone] Urinalysis 01/26/2019 [facility] Urine Color Yellow Profile [address] [place] [address] [phone] Urine Appearance Cloudy Urine Specific [place] 1.010 Normal 1.010-1.030 Urine pH 5.0 Normal [...] Present Abnormal Absent Urine Culture And 01/26/2019 [facility] Urine SEE RESULT [address] [place] [address] [phone] Comp Metabolic 01/26/2019 [facility] Sodium 136 mmol/L Normal 135- Panel [address] [place] [address] [phone] Potassium 4.6 mmol/L Normal 3.5-5.0 Chloride 105 [...] Egfr Non- 87.4 >60 Egfr 105.8 >60 20 Laboratory 01/26/2019 [facility] TSH (Thyroid 1.86 Normal 0.34 -5.60 test finding [address] Stim Horm) mcIU/[place] [address] [phone] Lipid Profile 01/26/2019 [facility] Triglycerides 216 mg/dL 21 (Trig/Chol/HD [address] L) [place] [address] [phone] Cholesterol 131 mg/dL 22 HDL Cholesterol 33.4 mg/dL 23 LDL Cholesterol 54 mg/dL 24 Iron & Iron Binding 01/26/2019 [facility] Iron 20 g/dL Low 50-[address] [place] [address] [phone] Unsaturated Iron Binding < 433 g/dL Total Iron Binding Capacity 448 g/dL Normal 250-450 Transferrin 320 mg/dL Normal 203-362 % Iron Saturation 4 % Low 15-55 Laboratory test 01/26/2019 [facility] Ferritin 10.5 Low 11- [address] ng/[place] [address] [phone] CBC Auto Diff 01/26/2019 [facility] White Blood 10.0 Normal 3.5-10.[address] Count 10^3/[place] [address] [phone] Red Blood Count 4.61 10^6/uL Normal 3.70-4.87 Hemoglobin 10.1 g/dL Low 12.0-16.0 Hematocrit 32 % Low 35-47 Mean Corpuscular Volume 70 fL Low 80-97 25 Mean Corpuscular Hemoglobin 22 pg Low 27-31 [...] % Nucleated Red Blood Cells % 0.1 1 SEE RESULT BELOW Name: FARTUN SALEEM : [address]: Vikas Mazariegos MD Acct: [id number] Unit: [id number] AGE: 44 Location: ENDO Re07/17/19 SEX: F Status: REG REF SPEC: [id number] BOOKER: 07/17/19-[address]: Vikas Mazariegos MD REQ: [id number] RECD: 07/17/19-1424 STATUS: COMP [facility] DR: Bee Salgado MD _ SOURCE: STOOL SPDESC: ORDERED: Occult Bl, Diag Procedure Result Reported Site Stool Occult Blood (1) Final 07/17/19- 1502 ML Stool Occult Blood Negative Collection Date (1) 07/17/19 * ML - Main Lab . END OF REPORT DEPARTMENT OF PATHOLOGY, [address] [place] [address] Inocencio Jernigan M.D. Director [facility] # [id number] 2 SEE RESULT BELOW Name: FARTUN SALEEM Davion : [address]: Vikas Mazariegos MD Acct: [id number] Unit: [id number] AGE: 44 Location: ENDO Re07/17/19 SEX: F Status: REG REF SPEC: [id number] BOOKER: 07/17/19-14[address] [facility] [address]: Vikas Mazariegos MD REQ: [id number] RECD: 07/17/19-8746 STATUS: LORNA LEDBETTER DR: Bee Salgado MD _ SOURCE: GAS ANTRUM SPDESC: ORDERED: Clotest Procedure Result Reported Site Clotest Final 07/18/19- 0742 ML Clotest Negative * ML - [facility] Bubba . END OF REPORT DEPARTMENT OF PATHOLOGY, [address] [place] [address] Inocencio Jernigan M.D. Director [facility] # [id number] 4 SEE RESULT BELOW Name: FARTUN SALEEM : [address]: Ember Godoy NP [facility] Acct: [id number] Unit: [id number] AGE: 44 Location: [facility] Re06/08/19 SEX: F Status: REG REF SPEC: [id number] BOOKER: 06/08/19-[address]: Ember Godoy [facility] REQ: [id number] RECD: 06/08/19 STATUS: COMP _ SOURCE: VAGINAL SPDESC: ORDERED: Susanna,Yeast DNA, Trich DNA COMMENTS: [id number] Would you like to order Trichomonas Vaginalis testing? Yes Procedure Result Reported Site Gardnerella/Yeast: Vaginal DNA Final 06/09/19- 1421 ML Organism 1 Negative Benita Organism 2 [...] failure. Trichomonas: Vaginal DNA Probe Final 06/09/19- 142 ML Organism 1 Negative Trichomonas CONTINUED ON NEXT PAGE DEPARTMENT OF PATHOLOGY, [address] [place] [address] Inocencio Jernigan M.D. Director [facility] # [id number] Patient: FARTUN SALEEM [id number] (Continued) Specimen: [id number] Collected: 06/08/19 Received: 06/08/19 (Continued) Procedure Result Reported Site Trichomonas: Vaginal DNA Probe Final (continued) 06/09/19- 142 The presence or absence of T. vaginalis cannot be used as a test for therapeutic success or failure. * - Main Lab . END OF REPORT DEPARTMENT OF PATHOLOGY, [address] [place] [address] Inocencio Jernigan M.D. Director [facility] # [id number] 5 [id number] SEE RESULT BELOW Name: FARTUN SALEEM Davion : [address]: Ember Godoy NP [facility] Acct: [id number] Unit: [id number] AGE: 44 Location: [facility] Re06/08/19 SEX: F Status: REG REF SPEC: [id number] BOOKER: 06/08/19-[address] [facility] [address]: Ember MORAES REQ: [id number] RECD: 06/08/19151 STATUS: ARISTIDES LEDBETTER DR: Lydia Deleon MD _ ORDERED: LEVEL 4 COMMENTS: [id number] FINAL DIAGNOSIS Uterus, endometrium, biopsy: -- Secretory [...] 1534 END OF REPORT DEPARTMENT OF PATHOLOGY, [address] [place] [address] Inocencio Jernigan M.D. Director [facility] # [id number] 7 Therapeutic target for the treatment of diabetes mellitus patients is <7% HBA1C, and in selective patients <6.0%. Please refer to [place] [employer] diabetic care guidelines for further information. 8 Because ethnic data is not always readily [...] 15-29 5 Kidney failure <15 (or dialysis) 9 [facility] Severe Sepsis and Septic Shock Management Bundle Measure requires all lactic acids initially measuring >2.0 mmol/L be repeated. 10 Urine Source: Clean Catch 11 Copy Result to: SALGADO, BEE ([id number]) 12 Because ethnic data is not always readily [...] 15-29 5 Kidney failure <15 (or dialysis) 13 Normal Range 180 to 914 Indeterminate Range 145 to 180 Deficient Range <145 14 ADDITIONAL INFORMATION This test was developed and its performance characteristics determined by [facility] in a manner consistent with CLIA requirements. This test has not been cleared or approved by the U.S. Food and Drug Administration. Test Performed by: [address] [address] [employer]: Octaviano Jay M.D. Ph.D.; CLIA# [id number] 15 Copy Result to: BEE SALGADO ([id number]) 16 Normal Range 180 to 914 Indeterminate Range 145 to 180 Deficient Range <145 17 Therapeutic target for the treatment of diabetes mellitus patients is <7% HBA1C, and in selective patients <6.0%. Please refer to [place] [employer] diabetic care guidelines for further information. 18 Microcytic anemia with red cell indices suggestive of iron deficiency. Additional studies as clinically warranted. Reviewed by Dr. Jernigan 19 SEE RESULT BELOW Name: FARTUN SALEEM : [address]: Chantel Upton MD Acct: [id number] Unit: [id number] AGE: 43 Location: [facility] Re01/26/19 SEX: F Status: REG REF SPEC: [id number] BOOKER: 01/26/[address]: Bee Salgado MD REQ: [id number] RECD: 01/26/19 STATUS: COMP _ SOURCE: URINE SPDESC: ORDERED: Urine Culture Procedure Result Reported Site Urine Culture Final 01/28/19- 940 ML Organism 1 KLEBSIELLA PNEUMONIAE [place] Count >100,000 (Many) CFU/ML 1. KLEBSIELLA PNEUMONIAE [...] . END OF REPORT DEPARTMENT OF PATHOLOGY, [address] [place] [address] Inocencio Jernigan M.D. Director [facility] # [id number] 20 Because ethnic data is not always readily [...] 15-29 5 Kidney failure <15 (or dialysis) 21 Desirable: <150 Borderline High: 150-199 High: 200-499 Very High: >500 22 Desirable: <200 Borderline High: 200-239 High: >239 23 Low: <40 Desirable: 40-60 High: >60 24 Desirable: <100 Near Optimal: 100-129 Borderline High: 130-159 High: 160-189 Very High: >189 25 Consistent with Previous Results Reported on 01/09/19. Procedures Date Code Description Status 06/08/2019 74374 Endometrial Sampling W Or W/O Endocervical BX W Or W/O Completed Cerv Dilat 06/05/2019 59235 ECHO Transthoracic, Real-Time 2D With Doppler And Completed Color Flow 06/05/2019 00933 ECHO Transthoracic, Real-Time 2D With Doppler And Completed Color Flow 06/01/2019 44654 Stress Test Completed 06/01/2019 87530 Myocardial Perfusion Imaging Tomographic (Spect) Completed Multiple Studies 05/24/2019 295875748 Diabetic Retinal Eye Exam Completed 05/15/2019 69841 EKG Tracing & Interpretation Completed 02/13/2019 26413 Stress Test Supervsn W/Out I/R Completed 02/13/2019 58610 Treadmill Interp/Report Only Completed 02/13/2019 20012 Stress ECHO Interpretation/Report Hospital Completed 02/13/2019 29760 Use Of ECHO Contrast Agent During Stress ECHO Completed 11/14/2018 217474495 Diabetic Retinal Eye Exam Completed 05/18/2018 99974149 Mammogram Completed 03/10/2017 363042692 Diabetic Retinal Eye Exam Completed 08/20/2016 27969578 Mammogram Completed 11/21/2015 097250489 Diabetic Retinal Eye Exam Completed 09/20/2014 77117348 Mammogram Completed Medical Devices Description No Information Available Encounters Type Date Location Provider Dx Diagnosis Office Visit 07/23/2019 Pul[facility]ology And Lydia J45.909 Unspecified asthma, 10:30a [facility] Caldwell uncomplicated [facility] G47.33 Obstructive sleep apnea (adult) (pediatric) Z87.891 Personal history of nicotine dependence Office Visit 06/15/2019 [facility] Gastroenterology Elissa D50.9 Iron deficiency 10:15a Rhonda anemia, TRACY Mae unspecified D51.9 Vitamin B12 deficiency anemia, unspecified K21.0 Gastro-esophageal reflux disease with esophagitis Office Visit 06/13/2019 2:45p [facility] Lan Molina R06.02 Shortness of Of [facility] Jarvis Farnsworth breath Z01.810 Encounter for preprocedural cardiovascular examination Office Visit 06/04/2019 10:00a [facility] Ember Godoy, N92.0 Excessive and [facility] ELEMENTARY EDUCATOR-Cde frequent menstruation with regular cycle F17.210 Nicotine dependence, cigarettes, uncomplicated E66.9 Obesity, unspecified Office Visit 05/15/2019 10:00a [facility] Lan Molina R06.02 Shortness of Of [facility] Jarvis Farnsworth breath Z01.810 Encounter for preprocedural cardiovascular examination R07.9 Chest pain, unspecified Office Visit 05/09/2019 10:30a [facility] Ember Godoy, N92.0 Excessive and [facility] ELEMENTARY EDUCATOR-Cde frequent menstruation with regular cycle F17.210 Nicotine dependence, cigarettes, uncomplicated Office Visit 04/26/2019 10:50a [facility] Internal Jordyn E11.9 Type 2 diabetes Medicine - Jarvis Smith mellitus without [facility] complications N92.0 Excessive and frequent menstruation with regular cycle Z23 Encounter for immunization L08.9 Local infection of the skin and subcutaneous tissue, unsp F17.210 Nicotine dependence, cigarettes, uncomplicated Office Visit 04/10/2019 10:00a [facility] Wilfredo Shore, D64.9 Anemia , [facility] LIBRARY CIRCULATION ASSISTANT unspecified G47.33 Obstructive sleep apnea (adult) (pediatric) G43.009 Migraine w/o aura, not intractable, w/o status migrainosus Office Visit 03/19/2019 Pulmonology And Lydia G47.33 Obstructive sleep 3:00p [facility] apnea (adult) [facility] (pediatric) F17.210 Nicotine dependence, cigarettes, uncomplicated J45.909 Unspecified asthma, uncomplicated Office Visit 02/13/2019 [facility] Gastroenterology [place] D64.9 Anemia, 2:00p Rhonda unspecified [place] LIBRARY CIRCULATION ASSISTANT Z79.84 assisted (current) use of oral hypoglycemic drugs Office Visit 02/06/2019 [facility] Internal Medicine Chantel Upton, E16.1 Other 11:00a - [facility] hypoglycemia Office Visit 02/02/2019 [facility] Gastroenterology Elissa D64.9 Anemia, 11:15a Rhonda unspecified [place] LIBRARY CIRCULATION ASSISTANT 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 E11.9 Type 2 diabetes mellitus without complications F17.210 Nicotine dependence, cigarettes, uncomplicated Office Visit 01/26/2019 11:40a [facility] Bee Salgado, D64.9 Anemia, Medicine - [facility] unspecified R10.12 Left upper quadrant pain E11.9 Type 2 diabetes mellitus without complications Assessments Date Code Description Provider 07/23/2019 J45.909 Unspecified asthma, uncomplicated Lydia Caldwell NP 07/23/2019 G47.33 Obstructive sleep apnea (adult) Lydia Caldwell NP (pediatric) 07/23/2019 Z87.891 Personal history of nicotine dependence Lydia Caldwell NP 06/15/2019 D50.9 Iron deficiency anemia, unspecified Elissa Mae NP 06/15/2019 D51.9 Vitamin B12 deficiency anemia, Elissa Mae NP unspecified 06/15/2019 K21.0 Gastro-esophageal reflux disease with Elissa Mae NP esophagitis 06/13/2019 R06.02 Shortness of breath Lan Farnsworth M.D. 06/13/2019 Z01.810 Encounter for preprocedural Lan Farnsworth M.D. cardiovascular examination 06/08/2019 N92.0 Excessive and frequent menstruation IB MarieP-Cdyoav with regular cycle 06/08/2019 R93.89 Abnormal findings on diagnostic imaging BI MarieP -Cde of other specified body structures 06/08/2019 E66.9 Obesity, unspecified BI MraieP-Cde 06/08/2019 Z68.38 Body mass index (BMI) 38.0-38.9, adult BI MarieP- Cde 06/05/2019 R06.02 Shortness of breath Lan Farnsworth M.D. 06/05/2019 R06.02 Shortness of breath Traveling ECHO 1 06/04/2019 N92.0 Excessive and frequent menstruation BI MarieP-Cdyoav with regular cycle 06/04/2019 F17.210 Nicotine dependence, cigarettes, Ember Godoy ELEMENTARY EDUCATOR-Cde uncomplicated 06/04/2019 E66.9 Obesity, unspecified BI MarieP-Cde 06/01/2019 R06.02 Shortness of breath Lan Farnsworth [...] Lan Farnsworth M.D. cardiovascular examination 02/13/2019 Z79.84 terminal system operator (current) use of oral Elissa Mae NP hypoglycemic drugs 02/06/2019 E16.1 Other hypoglycemia Chantel Upton MD 02/02/2019 D64.9 Anemia, unspecified Elissa Mae NP 02/02/2019 Z79.84 terminal system operator (current) use of oral Elissa Mae NP hypoglycemic drugs 02/02/2019 E11.9 Type 2 diabetes mellitus without Elissa Mae NP complications 02/02/2019 F17.210 Nicotine dependence, cigarettes, Elissa Mae NP uncomplicated 01/26/2019 D64.9 Anemia, unspecified Bee Salgado MD 01/26/2019 R10.12 Left upper quadrant pain Bee Salgado MD 01/26/2019 E11.9 Type 2 diabetes mellitus without Bee Salgado MD complications Plan of Treatment Future Appointment(s):09/24/2019 10:30 am - Lydia Caldwell NP at [facility]08/21/2019 10:10 am - Elissa Mae NP at [facility] [id number]/06/2020 10:00 am - Bee Salgado MD at [facility] Internal Medicine - [facility]10/09/2019 10:00 am - Yuriy Diamond N.P. at [facility]07/23/2019 - Lydia Caldwell NPJ45.909 Unspecified asthma, uncomplicatedFollow up:2 wkupcvO94.33 Obstructive sleep apnea (adult) (pediatric)Recommendations:Please re-start using CPAP nightly. Try using the new mask I gave you. Your sleep apnea is severe, and it is very important that you treat it. Untreated sleep apnea could lead to high blood pressure, irregular heart rhythms, heart attacks, or strokes. If you have difficulty with your equipment, or need to replace your mask or hoses, please contact your homecare agency. If you have any further questions, please call the [facility] at [phone] If you have any sleepiness while driving you MUST avoid operating a vehicle or machinery. If you feel tired while driving assembler for puller over hand and take a nap or switch drivers. If you know you are sleepy and need to go somewhere, arrange for a ride oruse public transportation. It is very important to not risk your safety or the safety of others.Z87.891 Personal history of nicotine dependence Functional Status Description No Information Available Mental Status Description No Information Available Referrals Refer to Dr Reason for Referral Status Appt Date Lydia Deleon MD Sent 05/09/2019 [address] [facility], [place] [address] [phone] Lan Farnsworth MD Sent 04/25/2019 [facility] [place] [address] [phone]
--- OUTSIDE RECORDS SUMMARY | 2019-07-23 10:51 | XMS REPORT | Continuity of Care Document ---
:1975 External Reference #:[id number] Author Name Lan Farnsworth M.D. (transmitted by agent of provider Sadaf Boyle) Address [address] [place] [address] Care Team Providers Name Role Phone Steve Doran MD - Ophthalmology Care Team Information Director Of Catering Lydia Weaver M.D. - Surgery of Care Team Information Director Of Catering [phone] [facility] - Care Team Information Director Of Catering [phone] Pantograph Transferrer Pito Nieto MD - Hand Surgery Care Team Information Director Of Catering Bee Salgado M.D. - Family Medicine Care Team Information Director Of Catering [phone] Problems Active Problems Provider Date Asthma without status asthmaticus David Mitchell M.D. Onset: 08/31/2010 Obstructive sleep apnea syndrome David Mitchell M.D. Onset: 08/30/2012 Mixed hyperlipidemia David Mitchell M.D. Onset: 08/30/2012 Cerebrovascular disease David Mitchell M.D. Onset: 02/20/2013 Systemic lupus erythematosus David Mitchell M.D. Onset: 03/20/2013 Joseph thyroiditis Jacinda Pichardo M.D. Onset: 11/02/2013 Note: Dr. Austin follows Ex-smoker Yuni Chapamn MD Onset: 03/22/2016 Morbid obesity Yuni Chapman [...] Former Cigarette Smoker Unknown Smoking Status Reviewed: 06/13/19 Former Cigarette Smoker ETOH Use consumes 6-7 beers per week [...] Tablets day with 20mg tab (rx'd by [facility]) Bupropion 1 tablet by mouth Unknown [...] CPT Code Status Date Vaccine Lot # [id number] Given 04/26/2019 Influenza Virus Vaccine, Quadrivalent ([id number]), [id number] Derived From Cell 60689 Given 02/24/2018 Influenza Virus Vaccine, Quadrivalent, Split, Preservative Free 47139 Given 07/30/2016 Pneumonia Vaccine [id number] Given 01/26/2015 Influenza Virus Vaccine, Quadrivalent, Split, Preservative Free 65000 Given 10/24/2014 Tdap - Tetanus/Diptheria/Acellular Pertussis [id number] 37995 Given 01/24/2014 Flu Vaccine Split Virus Preservative Free For Indiv 3Yr Older Vital Signs Date Vital Result Comment 06/13/2019 1:23pm Height 63.25 inches 5'3.25" Weight 223.00 lb with shoes Heart Rate 70 /min BP Systolic Sitting 104 mmHg Rue lg cuff BP Diastolic Sitting 70 mmHg Rue lg cuff BP Systolic Standing 100 mmHg Rue lg cuff BP Diastolic Standing 70 mmHg Rue lg cuff Respiratory Rate 16 /min BMI (Body Mass Index) 39.2 kg/m2 Ejection Fraction 55-60% date 06/05/19 ECHO 06/08/2019 9:57am Height 63.25 inches 5'3.25" Weight 219.38 lb Heart Rate 66 /min BP Systolic 108 mmHg BP Diastolic 69 mmHg O2 % BldC Oximetry 96 % BMI (Body Mass Index) 38.5 kg/m2 Results Test Acquired Date Facility Test Result H/L Range Note Laboratory test 06/[facility] Gardnerella/Yea SEE RESULT 1, [address]: [place] [address] [phone] Surgical 06/08/2019 [facility] Surgical SEE RESULT 3, [address] [place] [address] [phone] PDFReport SEE IMAGE Laboratory test 06/04/2019 [facility] Hemoglobin A1c 6.1 % High 4.0-5.6 [address] (Glyco HGB) [place] [address] [phone] Comp Metabolic 04/26/2019 [facility] Sodium 136 Normal 135- [address] mmol/[place] [address] [phone] Potassium 3.8 mmol/L Normal 3.5-5.0 Chloride 105 [...] Egfr 97.5 >60 6 Laboratory test 04/26/2019 [facility] Magnesium 2.0 mg/dL Normal 1.9-2.[address] [place] [address] [phone] Lipase 31 U/L Normal 11.0-82.0 C Reactive Protein 3.36 mg/L Normal <8.01 Lactic Acid 0.8 mmol/L Normal 0.5-2.0 7 CBC Auto 04/26/2019 [facility] White Blood 7.3 10^3/uL Normal 3.5-10.[address] [place] [address] [phone] Red Blood Count 4.54 10^6/uL Normal 3.70-4.87 [...] Blood Cells % 0.1 Urinalysis Profile 04/26/2019 [facility] Urine Color Straw [address] [place] [address] [phone] Urine Appearance Clear Urine Specific Henderson 1.005 Low 1.010-1.030 Urine pH 5.0 Normal 5-9 Urine Urobilinogen Negative Negative Urine Ketones Negative Negative Urine Protein Negative Negative Urine Leukocytes Negative Negative Urine Blood Negative Negative Urine Nitrite Negative Negative Urine Bilirubin Negative Negative Urine Glucose Negative Negative Cell Morphology 04/10/2019 [facility] Microcytosis 1+ 9 [address] [place] [address] [phone] Anisocytosis 2+ Iron & Iron Binding 04/10/2019 [facility] Iron 51 g/dL Normal 50-212 Capacity [address] [place] [address] [phone] Unsaturated Iron Binding < 369 g/dL Total Iron Binding Capacity 384 g/dL Normal 250-450 Transferrin 274 mg/dL Normal 203-362 % Iron Saturation 13 % Low 15-55 Laboratory test 04/10/2019 [facility] Vitamin B12 242 pg/mL Normal 180-914 10 finding [address] [place] [address] [phone] Methylmalonic Acid Mma 0.11 nmol/mL <=0.40 11 Ferritin 14.5 ng/mL Normal 11-307 12 Comp Metabolic 04/10/2019 [facility] Sodium 139 mmol/L Normal 135-145 Panel [address] [place] [address] [phone] Potassium 4.7 mmol/L Normal 3.5-5.0 Chloride 106 [...] Egfr 100.5 >60 13 CBC Auto 04/10/2019 [facility] White Blood 6.8 10^3/uL Normal 3.5-10.[address] [place] [address] [phone] Red Blood Count 4.85 10^6/uL Normal 3.70-4.87 [...] Blood Cells % 0.1 Lipid Profile 01/26/2019 [facility] Triglycerides 216 mg/dL 14 (Trig/Chol/HDL) [address] [place] [address] [phone] Cholesterol 131 mg/dL 15 HDL Cholesterol 33.4 mg/dL 16 LDL Cholesterol 54 mg/dL 17 Laboratory 01/26/2019 [facility] TSH (Thyroid 1.86 Normal 0.34 -5.60 test finding [address] [facility] Stim Horm) mcIU/[place] [address] [phone] Comp Metabolic 01/26/2019 [facility] Sodium 136 mmol/L Normal 135-145 Panel [address] [place] [address] [phone] Potassium 4.6 mmol/L Normal 3.5-5.0 Chloride 105 [...] 105.8 >60 18 Urine Culture And 01/26/2019 [facility] Urine Culture SEE RESULT [address] [place] [address] [phone] Urinalysis Profile 01/26/2019 [facility] Urine Color Yellow [address] [place] [address] [phone] Urine Appearance Cloudy Urine Specific Henderson 1.010 Normal 1.010-1.030 Urine pH 5.0 Normal [...] Cell Present Abnormal Absent Laboratory test 01/26/2019 [facility] Pathologist Review (SEE NOTE) [address] [place] [address] [phone] Cell Morphology 01/26/2019 [facility] Macrocytosis 2+ [address] [place] [address] [phone] Microcytosis 1+ Hypochromasia 1+ Polychromasia 1+ Anisocytosis 2+ Laboratory test 01/26/2019 [facility] Hemoglobin A1c 5.7 % High 4.0-5.[address] (Glyco HGB) [place] [address] [phone] Vitamin B12 And 01/26/2019 [facility] Vitamin B12 175 Low 180- 914 22 Folate Serum [address] pg/mL [place], [place] [address] [phone] Folic Acid (Folate) 13.38 ng/mL >3.99 CBC Auto 01/26/2019 [facility] White Blood 10.0 10^3/uL Normal 3.5-10.[address] [place] [address] [phone] Red Blood Count 4.61 10^6/uL Normal 3.70-4.87 [...] Blood Cells % 0.1 Laboratory test 01/26/2019 [facility] Ferritin 10.5 ng/mL Low 11-307 finding [address] [place] [address] [phone] Iron & Iron Binding 01/26/2019 [facility] Iron 20 g/dL Low 50-212 Capacity [address] [place] [address] [phone] Unsaturated Iron Binding < 433 g/dL Total Iron Binding Capacity 448 g/dL Normal 250-450 Transferrin 320 mg/dL Normal 203-362 % Iron Saturation 4 % Low 15-55 Order 01/12/2019 [facility] In-House EKG viewed by Dr. Mandujano CBC Auto Diff 01/09/2019 [facility] White Blood 6.8 10^3/uL Normal 3.5-10.[address] Count [place], [place] [address] [phone] Red Blood Count 3.86 10^6/uL Normal 3.70-4.87 [...] Blood Cells % 0.0 Laboratory test 01/09/2019 [facility] Pathologist (SEE NOTE) [address] [place] [address] [phone] Laboratory test 01/09/2019 [facility] Lipase 22 U/L Normal 11.[address] [place] [address] [phone] HCG < 0.60 mIU/mL 25 Liver Function 01/09/2019 [facility] Total Protein 6.3 g/dL Low 6.4-8.[address] [place] [address] [phone] Albumin 3.6 g/dL Normal 3.2-5.2 Globulin 2.7 g/dL Normal 2-4 Albumin/Globulin Ratio 1.3 Normal 1-3 Total Bilirubin 0.20 mg/dL Normal 0.2-1.0 Direct Bilirubin 0.00 mg/dL Low 0.03-0.18 Alkaline Phosphatase 68 U/L Normal 34-104 Alt 14 U/L Normal 7-52 Ast 11 U/L Low 13-39 Basic Metabolic 01/09/2019 [facility] Sodium 137 mmol/L Normal 135-[address] [place], [place] [address] [phone] Potassium 3.6 mmol/L Normal 3.5-5.0 Chloride 107 mmol/L Normal 101-111 Co2 Carbon Dioxide 25 mmol/L Normal 22-32 Anion Gap 5 mmol/L Normal 2-11 Glucose 120 mg/dL High 70-100 Blood Urea Nitrogen 6 mg/dL Normal 6-24 Creatinine 0.69 mg/dL Normal 0.51-0.95 BUN/Creatinine Ratio 8.7 Normal 8-20 Calcium 8.2 mg/dL Low 8.6-10.3 Egfr Non- 93.3 >60 Egfr 112.9 >60 26 CBC Auto 01/09/2019 [facility] White Blood 5.8 10^3/uL Normal 3.5-10.[address] [place] [address] [phone] Red Blood Count 3.61 10^6/uL Low 3.70-4.87 [...] Blood Cells % 0.1 Stool Occult 01/09/2019 [facility] Stool Occult SEE RESULT 27 Blood, Screen [address] Blood, [place] [address] [phone] 1 [id number] 2 SEE RESULT BELOW Name: FARTUN SALEEM Davion : [address]: Ember Godoy NP [facility] Acct: [id number] Unit: [id number] AGE: 44 Location: [facility] Re06/08/19 SEX: F Status: REG REF SPEC: [id number] BOOKER: 06/08/19-1023 [facility] DR: Ember Godoy NP [facility] REQ: [id number] RECD: 06/08/19 STATUS: COMP _ SOURCE: VAGINAL SPDESC: ORDERED: Susanna,Yeast DNA, Trich DNA COMMENTS: [id number] Would you like to order Trichomonas Vaginalis [...] CONTINUED ON NEXT PAGE DEPARTMENT OF PATHOLOGY, [address] [place] [address] Inocencio Jernigan M.D. Director [facility] # [id number] Patient: FARTUN SALEEM [id number] (Continued) Specimen: [id number] Collected: 06/08/19-1023 Received: 06/08/19-1441 (Continued) Procedure Result Reported Site Trichomonas: Vaginal DNA Probe Final (continued) 06/09/19- 1421 The presence or absence of T. vaginalis cannot be used as a test for therapeutic success or failure. * ML - Main Lab . END OF REPORT DEPARTMENT OF PATHOLOGY, [address] [place] [address] Inocencio Jernigan M.D. Director [facility] # [id number] SEE RESULT BELOW Name: FARTUN SALEEM Davion : [address]: Ember Godoy NP, CNM Acct: [id number] Unit: [id number] AGE: 44 Location: [facility] Re06/08/19 SEX: F Status: REG REF SPEC: [id number] BOOKER: 06/08/19-[address]: Ember Godoy NP [facility] REQ: [id number] RECD: 06/08/195182 STATUS: ARISTIDES LEDBETTER DR: Lydia Deleon MD _ ORDERED: LEVEL 4 COMMENTS: [id number] FINAL DIAGNOSIS Uterus, endometrium, biopsy: -- Secretory [...] 1534 END OF REPORT DEPARTMENT OF PATHOLOGY, [address] [place] [address] Inocencio Jernigan M.D. Director [facility] # [id number] 5 Therapeutic target for the treatment of diabetes mellitus patients is <7% HBA1C, and in selective patients <6.0%. Please refer to [place] [employer] diabetic care guidelines for further [...] 5 Kidney failure <15 (or dialysis) 7 [facility] Severe Sepsis and Septic Shock Management Bundle Measure requires all lactic acids initially measuring >2.0 mmol/L be repeated. 8 Urine Source: Clean Catch 9 Copy Result to: BEE SALGADO ([id number]) 10 Normal Range 180 to 914 Indeterminate Range 145 to 180 Deficient Range <145 11 ADDITIONAL INFORMATION This test was developed and its performance characteristics determined by [facility] in a manner consistent with CLIA requirements. This test has not been cleared or approved by the U.S. Food and Drug Administration. Test Performed by: [facility] [place] [address] Esol Teacher Assistant: Octaviano Jay M.D. Ph.D.; CLIA# [id number] 12 Copy Result to: BEE SALGADO ([id number]) 13 Because ethnic data is not always [...] (or dialysis) 19 SEE RESULT BELOW Name: AFRTUN SALEEM : [address]: Chantel Upton MD Acct: [id number] Unit: [id number] AGE: 43 Location: [facility] Re01/26/19 SEX: F Status: REG REF SPEC: [id number] BOOKER: 01/26/[address]: Bee Salgado MD REQ: [id number] RECD: 01/26/19 STATUS: COMP _ SOURCE: URINE SPDESC: ORDERED: Urine Culture Procedure Result Reported Site Urine Culture Final 01/28/19- 09 ML Organism 1 KLEBSIELLA PNEUMONIAE [place] Count >100,000 (Many) CFU/ML 1. KLEBSIELLA PNEUMONIAE [...] . END OF REPORT DEPARTMENT OF PATHOLOGY, [address] [place] [address] Inocencio Jernigan M.D. Director [facility] # [id number] 20 Microcytic anemia with red cell indices suggestive of iron deficiency. Additional studies as clinically warranted. Reviewed by Dr. Jernigan 21 Therapeutic target for the treatment of diabetes mellitus patients is <7% HBA1C, and in selective patients <6.0%. Please refer to [place] [employer] diabetic care guidelines for further [...] [address]: Fernando Basurto MD Acct: [id number] Unit: [id number] AGE: 43 Location: ED Re01/09/19 SEX: F Status: REG ER SPEC: [id number] BOOKER: 01/09/19 [facility] DR: Fernando Basurto MD REQ: [id number] RECD: 01/09/19 STATUS: LORNA LEDBETTER DR: Bee Salgado MD _ SOURCE: STOOL SPDESC: ORDERED: Occult Bl, Scn Procedure Result Reported Site Stool Occult Blood (1) Final 01/09/19- 0708 ML Stool Occult Blood Negative Collection Date (1) 01/09/19 * ML - Main Lab . END OF REPORT DEPARTMENT OF PATHOLOGY, [address] [place] [address] Inocencio Jernigan M.D. Director [facility] # [id number] Procedures Date Code Description Status 06/08/2019 27792 Endometrial Sampling W Or W/O Endocervical BX W Or W/O Completed Cerv Dilat 06/05/2019 72224 ECHO Transthoracic, Real-Time 2D With Doppler And Completed Color Flow 06/05/2019 27200 ECHO Transthoracic, Real-Time 2D With Doppler And Completed Color Flow 06/01/2019 27368 Stress Test Completed 06/01/2019 04924 Myocardial Perfusion Imaging Tomographic (Spect) Completed Multiple Studies 05/24/2019 256357390 Diabetic Retinal Eye Exam Completed 05/15/2019 84175 EKG Tracing & Interpretation Completed 02/13/2019 31153 Stress Test Supervsn W/Out I/R Completed 02/13/2019 14542 Treadmill Interp/Report Only Completed 02/13/2019 79057 Stress ECHO Interpretation/Report Hospital Completed 02/13/2019 15211 Use Of ECHO Contrast Agent During Stress ECHO Completed 01/12/2019 23490 EKG Tracing & Interpretation Completed 11/14/2018 [id number] Diabetic Retinal Eye Exam Completed 05/18/2018 87389952 Mammogram Completed 03/10/2017 352153070 Diabetic Retinal Eye Exam Completed 08/20/2016 04501051 Mammogram Completed 11/21/2015 771662834 Diabetic Retinal Eye Exam Completed 09/20/2014 89972495 Mammogram Completed Medical Devices Description No Information Available Encounters Type Date Location Provider Dx Diagnosis Office Visit 05/15/2019 [facility] Lan Molina R06.02 Shortness of 10:00a Of [facility] Jarvis Farnsworth breath Z01.810 Encounter for preprocedural cardiovascular examination R07.9 Chest pain, unspecified Office Visit 05/09/2019 10:30a [facility] Ember Godoy, N92.0 Excessive and [facility] DIFFERENTIAL REPAIRER-Cde frequent menstruation with regular cycle F17.210 Nicotine dependence, cigarettes, uncomplicated Office Visit 04/26/2019 10:50a [facility] Internal Jordyn E11.9 Type 2 diabetes Medicine - Jarvis Smith mellitus without [facility] complications N92.0 Excessive and frequent menstruation with regular cycle Z23 Encounter for immunization L08.9 Local infection of the skin and subcutaneous tissue, unsp F17.210 Nicotine dependence, cigarettes, uncomplicated Office Visit 04/10/2019 10:00a [facility] Wilfredo Shore, D64.9 Anemia , Services [facility] KILN FIRER unspecified G47.33 Obstructive sleep apnea (adult) (pediatric) G43.009 Migraine w/o aura, not intractable, w/o status migrainosus Office Visit 03/19/2019 [facility] And Lydai G47.33 Obstructive sleep 3:00p Sleep Services Of TRACY Caldwell apnea (adult) [facility] (pediatric) F17.210 Nicotine dependence, cigarettes, uncomplicated J45.909 Unspecified asthma, uncomplicated Office Visit 02/13/2019 [facility] Gastroenterology Elissa D64.9 Anemia, 2:00p Rhonda unspecified TRACY Mae Z79.84 longterm (current) use of oral hypoglycemic drugs Office Visit 02/06/2019 [facility] Internal Medicine Chantel Upton, E16.1 Other 11:00a - [facility] hypoglycemia Office Visit 02/02/2019 [facility] Gastroenterology Elissa D64.9 Anemia, 11:15a Rhonda unspecified TRACY Mae Z79.84 longterm (current) use of oral hypoglycemic drugs E11.9 Type 2 diabetes mellitus without complications F17.210 Nicotine dependence, cigarettes, uncomplicated Office Visit 01/26/2019 11:40a [facility] Internal Bee Salgado, D64.9 Anemia, Medicine - [facility] unspecified R10.12 Left upper quadrant pain E11.9 Type 2 diabetes mellitus without complications Office Visit 01/15/2019 1:00p Pulmonology And Lydia R06.02 Shortness of Sleep Services Of TRACY Caldwell breath [facility] F17.210 Nicotine dependence, cigarettes, uncomplicated J45.909 Unspecified asthma, uncomplicated G47.33 Obstructive sleep apnea (adult) (pediatric) R53.83 Other fatigue Office Visit 01/12/2019 2:20p [facility] Internal Alysia Z01.818 Encounter for other Medicine - DO Delbert preprocedural Suite R examination G56.01 Carpal tunnel syndrome, right upper limb D64.9 Anemia, unspecified R07.9 Chest pain, unspecified Office Visit 01/08/2019 10:00a [facility] Wilfredo Shore, G56.01 Carpal tunnel Services [facility] KILN FIRER syndrome, right upper limb G43.009 Migraine w/o aura, not intractable, w/o status migrainosus Office Visit 12/19/2018 10:15a [facility] Pito G56.01 Carpal tunnel at Perla Nieto MD syndrome, right upper limb 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 06/13/2019 Z01.810 Encounter for preprocedural Lan Farnsworth M.D. cardiovascular examination 06/08/2019 N92.0 Excessive and frequent menstruation LUIS DANIEL Marie-Cde with regular cycle 06/08/2019 E66.9 Obesity, unspecified Ember Godoy, DIFFERENTIAL REPAIRER-Cde 06/05/2019 R06.02 Shortness of breath Lan Farnsworth M.D. 06/05/2019 R06.02 Shortness of breath Traveling ECHO 1 06/04/2019 N92.0 Excessive and frequent menstruation Ember Godoy DIFFERENTIAL REPAIRER-Cde with regular cycle 06/04/2019 F17.210 Nicotine dependence, cigarettes, Ember Godoy, DIFFERENTIAL REPAIRER-Cde uncomplicated 06/04/2019 E66.9 Obesity, unspecified Ember Godoy, DIFFERENTIAL REPAIRER-Cde 06/01/2019 R06.02 Shortness of breath Lan Farnsworth M.D. 05/15/2019 R06.02 Shortness of breath Lan Farnsworth M.D. 05/15/2019 Z01.810 Encounter for preprocedural Lan Farnsworth M.D. cardiovascular examination 05/15/2019 R07.9 Chest pain Lan Farnsworth M.D. 05/09/2019 N92.0 Excessive and frequent menstruation Ember Patrickwesley DIFFERENTIAL REPAIRER-Cde with regular cycle 05/09/2019 F17.210 Nicotine dependence, cigarettes, BI MarieP-Cde uncomplicated 04/26/2019 E11.9 Type 2 diabetes mellitus [...] 03/19/2019 F17.210 Nicotine dependence, cigarettes, Lydia Caldwell KILN FIRER uncomplicated 03/19/2019 J45.909 Unspecified asthma, uncomplicated Lydia Caldwell, KILN FIRER 02/13/2019 D64.9 Anemia, unspecified Elissa Rhonda Mae, KILN FIRER 02/13/2019 Z01.810 Encounter for preprocedural Lan Farnsworth M.D. cardiovascular examination 02/13/2019 Z79.84 longterm (current) use of oral Elissa Rhonda Mae, KILN FIRER hypoglycemic drugs 02/06/2019 E16.1 Other hypoglycemia Chantel Upton MD 02/02/2019 D64.9 Anemia, unspecified Elissa Rhonda Mae, KILN FIRER 02/02/2019 Z79.84 terminal operations supervisor (current) use of oral Elissa Rhonda Mae, KILN FIRER hypoglycemic drugs 02/02/2019 E11.9 Type 2 diabetes mellitus without Elissagayathri Mae, KILN FIRER complications 02/02/2019 F17.210 Nicotine dependence, cigarettes, Elissa Mae, KILN FIRER uncomplicated 01/26/2019 D64.9 Anemia, unspecified Bee Salgado MD 01/26/2019 R10.12 Left upper quadrant pain Bee Salgado MD 01/26/2019 E11.9 Type 2 diabetes mellitus without Bee Salgado MD complications 01/15/2019 R06.02 Shortness of breath Lydia Caldwell NP 01/15/2019 F17.210 Nicotine dependence, cigarettes, Lydia Caldwell NP uncomplicated 01/15/2019 J45.909 Unspecified asthma, uncomplicated Lydia Caldwell, KILN FIRER 01/15/2019 G47.33 Obstructive sleep apnea (adult) Lydia Caldwell NP (pediatric) 01/15/2019 R53.83 Other fatigue Lydia Caldwell NP 01/12/2019 Z01.818 Encounter for other preprocedural Alysia Senner, DO examination 01/12/2019 G56.01 Carpal tunnel syndrome, right upper Alysia Senner, DO limb 01/12/2019 D64.9 Anemia, unspecified Alysia Senner, DO 01/12/2019 R07.9 Chest pain, unspecified Alysia Senner, DO 01/08/2019 G56.01 Carpal tunnel syndrome, right upper Wilfredo Shore KILN FIRER limb 01/08/2019 G43.009 Migraine without aura, not intractable, Wilfredo Shore, TRACY without status migrainosus 12/19/2018 G56.01 Carpal tunnel [...] 10:30 am - Lydia Deleon MD at [facility]09/26/2019 10:00 am - Bee Salgado MD at [facility] Internal Medicine - [facility]10/09/2019 10:00 am - Yuriy Diamond N.P. at [facility]07/23/2019 10:30 am - Lydia Caldwell NP at Pulmonology [facility]06/15/2019 10:15 am - Elissa Mae NP at [facility] [id number]/22/2020 - Lan Farnsworth M.D.R06.02 Shortness of breathFollow up:As mvbuavE12.810 Encounter for preprocedural cardiovascular examination Functional Status Description No Information Available Mental Status Description No Information Available Referrals Refer to Reason for Referral Status Appt Date Lydia Deleon MD Sent 05/09/2019 [address] [facility], [place] [address] [phone] Lan Farnsworth MD Sent 04/25/[address] [place] [address] [phone] Elissa Mae NP Sent 01/23/2019 [address] [place] [id number] [phone]
--- OUTSIDE RECORDS SUMMARY | 2019-07-23 10:51 | XMS REPORT | Continuity of Care Document ---
:1975 External Reference #:[id number] Author Name LUIS DANIEL Marie-Cde (transmitted by agent of provider Almita Phelan) Address [address], [place] [address] Care Team Providers Name Role Phone Steve Doran MD - Ophthalmology Care Team Information Graduate Engineer Lydia Weaver M.D. - Surgery of Care Team Information Graduate Engineer [facility] - Care Team Information Graduate Engineer [phone] Steward/Stewardess Wine Pito Nieto MD - Hand Surgery Care Team Information Graduate Engineer Bee Salgado M.D. - Family Medicine Care Team Information Graduate Engineer [phone] Problems Active Problems Provider Date Asthma without [...] Smoker 1 Pack Daily Smoking Status Reviewed: 06/04/19 Current Cigarette Smoker 1 Pack Daily ETOH [...] with 20mg tab (rx'd by [facility]) Bupropion 1 tablet by mouth Unknown Hydrochloride [...] Cintron 01/08/2019 - 10mg mouth in the [place], Jarvis 03/19/2019 Tablets morning and at night. take [...] CPT Code Status Date Vaccine Lot # [id number] Given 04/26/2019 Influenza Virus Vaccine, Quadrivalent ([id number]), [id number] Derived From Cell [id number] Given 02/24/2018 Influenza Virus Vaccine, Quadrivalent, Split, Preservative Free 61586 Given 07/30/2016 Pneumonia Vaccine [id number] Given 01/26/2015 Influenza Virus Vaccine, Quadrivalent, Split, Preservative Free [id number] Given 10/24/2014 Tdap - Tetanus/Diptheria/Acellular Pertussis [id number] Given 01/24/2014 Flu Vaccine Split Virus Preservative Free For Indiv [id number] Older Vital Signs Date Vital Result Comment 06/04/2019 9:42am Height 63.25 inches 5'3.25" Weight 223.00 lb Heart Rate 83 /min BP Systolic 128 mmHg BP Diastolic 83 mmHg O2 % BldC Oximetry 96 % BMI (Body Mass Index) 39.2 kg/m2 05/15/2019 9:34am Height 63.25 inches 5'3.25" Weight 223.00 lb with shoes Heart Rate 72 /min left radial BP Systolic Sitting 120 mmHg Lue, reg cuff BP Diastolic Sitting 76 mmHg Lue, reg cuff BP Systolic Standing 114 mmHg Lue, reg cuff BP Diastolic Standing 74 mmHg Lue, reg cuff BMI (Body Mass Index) 39.2 kg/m2 Results Test Acquired Date Facility Test Result H/L Range Note Comp Metabolic 04/26/2019 [facility] Sodium 136 mmol/L Normal 135-[address] [place] [address] [phone] Potassium 3.8 mmol/L Normal 3.5-5.0 Chloride 105 [...] Egfr Non- 80.6 >60 Egfr 97.5 >60 1 Laboratory test 04/26/2019 [facility] Magnesium 2.0 mg/dL Normal 1.9-2.[address] [place] [address] [phone] Lipase 31 U/L Normal 11.0-82.0 C Reactive Protein 3.36 mg/L Normal <8.01 Lactic Acid 0.8 mmol/L Normal 0.5-2.0 2 CBC Auto 04/26/2019 [facility] White Blood 7.3 10^3/uL Normal 3.5-10.[address] [place] [address] [phone] Red Blood Count 4.54 10^6/uL Normal 3.70-4.87 [...] Blood Cells % 0.1 Urinalysis Profile 04/26/2019 [facility] Urine Color Straw [address] [place] [address] [phone] Urine Appearance Clear Urine Specific Atwood 1.005 Low 1.010-1.030 Urine pH 5.0 Normal 5-9 Urine Urobilinogen Negative Negative Urine Ketones Negative Negative Urine Protein Negative Negative Urine Leukocytes Negative Negative Urine Blood Negative Negative Urine Nitrite Negative Negative Urine Bilirubin Negative Negative Urine Glucose Negative Negative Cell Morphology 04/10/2019 [facility] Microcytosis 1+ [address] [place] [address] [phone] Anisocytosis 2+ Iron & Iron Binding 04/10/2019 [facility] Iron 51 g/dL Normal 50-[address] [place] [address] [phone] Unsaturated Iron Binding < 369 g/dL Total Iron Binding Capacity 384 g/dL Normal 250-450 Transferrin 274 mg/dL Normal 203-362 % Iron Saturation 13 % Low 15-55 Laboratory test 04/10/2019 [facility] Vitamin B12 242 pg/mL Normal 180-914 5 finding [address] [place] [address] [phone] Methylmalonic Acid Mma 0.11 nmol/mL <=0.40 6 Ferritin 14.5 ng/mL Normal 11-307 7 Comp Metabolic 04/10/2019 [facility] Sodium 139 mmol/L Normal 135-145 Panel [address] [place] [address] [phone] Potassium 4.7 mmol/L Normal 3.5-5.0 Chloride 106 [...] Egfr Non- 83.1 >60 Egfr 100.5 >60 8 CBC Auto 04/10/2019 [facility] White Blood 6.8 10^3/uL Normal 3.5-10.[address] [place] [address] [phone] Red Blood Count 4.85 10^6/uL Normal 3.70-4.87 [...] Blood Cells % 0.1 Lipid Profile 01/26/2019 [facility] Triglycerides 216 mg/dL 9 (Trig/Chol/HDL) [address] [place] [address] [phone] Cholesterol 131 mg/dL 10 HDL Cholesterol 33.4 mg/dL 11 LDL Cholesterol 54 mg/dL 12 Laboratory 01/26/2019 [facility] TSH (Thyroid 1.86 Normal 0.34 -5.60 test finding 101 [facility] Stim Horm) mcIU/[place] [address] [phone] Comp Metabolic 01/26/2019 [facility] Sodium 136 mmol/L Normal 135-[address] [place] [address] [phone] Potassium 4.6 mmol/L Normal 3.5-5.0 Chloride 105 [...] Egfr Non- 87.4 >60 Egfr 105.8 >60 13 Urine Culture And 01/26/2019 [facility] Urine Culture SEE RESULT [address] [place] [address] [phone] Urinalysis Profile 01/26/2019 [facility] Urine Color Yellow [address] [place] [address] [phone] Urine Appearance Cloudy Urine Specific Atwood 1.010 Normal 1.010-1.030 Urine pH 5.0 Normal [...] Cell Present Abnormal Absent Laboratory test 01/26/2019 [facility] Pathologist Review (SEE NOTE) 15 finding [address] [place] [address] [phone] Cell Morphology 01/26/2019 [facility] Macrocytosis 2+ [place] [address] [phone] Microcytosis 1+ Hypochromasia 1+ Polychromasia 1+ Anisocytosis 2+ Laboratory test 01/26/2019 [facility] Hemoglobin A1c 5.7 % High 4.0-5.6 16 finding 101 [facility] (Glyco HGB) [place] [address] [phone] Vitamin B12 And 01/26/2019 [facility] Vitamin B12 175 Low 180- 914 17 Folate Serum 101 pg/[place] [address] [phone] Folic Acid (Folate) 13.38 ng/mL >3.99 Iron & Iron Binding 01/26/2019 [facility] Iron 20 g/dL Low 50-[address] [place] [address] [phone] Unsaturated Iron Binding < 433 g/dL Total Iron Binding Capacity 448 g/dL Normal 250-450 Transferrin 320 mg/dL Normal 203-362 % Iron Saturation 4 % Low 15-55 Laboratory test 01/26/2019 [facility] Ferritin 10.5 Low 11- [address] ng/[place] [address] [phone] CBC Auto Diff 01/26/2019 [facility] White Blood 10.0 Normal 3.5-10.[address] Count 10^3/[place] [address] [phone] Red Blood Count 4.61 10^6/uL Normal 3.70-4.87 Hemoglobin 10.1 g/dL Low 12.0-16.0 Hematocrit 32 % Low 35-47 Mean Corpuscular Volume 70 fL Low 80-97 18 Mean Corpuscular Hemoglobin 22 pg Low 27-31 [...] Red Blood Cells % 0.1 Order 01/12/2019 [facility] In-House EKG viewed by Dr. Mandujano Stool Occult 01/09/2019 [facility] Stool Occult SEE RESULT 19 Blood, Screen [address] Blood, [place] [address] [phone] CBC Auto Diff 01/09/2019 [facility] White Blood 5.8 10^3/uL Normal 3.5-10. [address] Count 8 [place] [address] [phone] Red Blood Count 3.61 10^6/uL Low 3.70-4.87 [...] Blood Cells % 0.1 Basic Metabolic 01/09/2019 [facility] Sodium 137 mmol/L Normal 135-145 Panel [address] [place] [address] [phone] Potassium 3.6 mmol/L Normal 3.5-5.0 Chloride 107 mmol/L Normal 101-111 Co2 Carbon Dioxide 25 mmol/L Normal 22-32 Anion Gap 5 mmol/L Normal 2-11 Glucose 120 mg/dL High 70-100 Blood Urea Nitrogen 6 mg/dL Normal 6-24 Creatinine 0.69 mg/dL Normal 0.51-0.95 BUN/Creatinine Ratio 8.7 Normal 8-20 Calcium 8.2 mg/dL Low 8.6-10.3 Egfr Non- 93.3 >60 Egfr 112.9 >60 20 Liver Function 01/09/2019 [facility] Total Protein 6.3 g/dL Low 6.4-8.9 Panel [address] [place] [address] [phone] Albumin 3.6 g/dL Normal 3.2-5.2 Globulin 2.7 g/dL Normal 2-4 Albumin/Globulin Ratio 1.3 Normal 1-3 Total Bilirubin 0.20 mg/dL Normal 0.2-1.0 Direct Bilirubin 0.00 mg/dL Low 0.03-0.18 Alkaline Phosphatase 68 U/L Normal 34-104 Alt 14 U/L Normal 7-52 Ast 11 U/L Low 13-39 Laboratory test 01/09/2019 [facility] Lipase 22 U/L Normal 11.0-82.[address] [place] [address] [phone] HCG < 0.60 mIU/mL 21 CBC Auto 01/09/2019 [facility] White Blood 6.8 10^3/uL Normal 3.5-10.[address] [place] [address] [phone] Red Blood Count 3.86 10^6/uL Normal 3.70-4.87 [...] Blood Cells % 0.0 Laboratory test 01/09/2019 [facility] Pathologist Review (SEE NOTE) 22 finding [address] [place] [address] [phone] 1 Because ethnic data is not always readily [...] 15-29 5 Kidney failure <15 (or dialysis) 2 [facility] Severe Sepsis and Septic Shock Management Bundle Measure requires all lactic acids initially measuring >2.0 mmol/L be repeated. 3 Urine Source: Clean Catch 4 Copy Result to: BEE SALGADO ([id number]) 5 Normal Range 180 to 914 Indeterminate Range 145 to 180 Deficient Range <145 6 ADDITIONAL INFORMATION This test was developed and its performance characteristics determined by [facility] in a manner consistent with CLIA requirements. This test has not been cleared or approved by the U.S. Food and Drug Administration. Test Performed by: [facility] [place] [address] Clinic Md Associate: Octaviano Jay M.D. Ph.D.; CLIA# [id number] 7 Copy Result to: BEE SALGADO ([id number]) 8 Because ethnic data is not always [...] 5 Kidney failure <15 (or dialysis) 9 Desirable: <150 Borderline High: 150-199 High: 200-499 Very High: >500 10 Desirable: <200 Borderline High: 200-239 High: >239 11 Low: <40 Desirable: 40-60 High: >60 12 Desirable: <100 Near Optimal: 100-129 Borderline High: 130-159 High: 160-189 Very High: >189 13 Because ethnic data is not always [...] 5 Kidney failure <15 (or dialysis) 14 SEE RESULT BELOW Name: FARTUN SALEEM Davion : [address]: Chantel Upton MD Acct: [id number] Unit: [id number] AGE: 43 Location: [facility] Re01/26/19 SEX: F Status: REG REF SPEC: [id number] BOOKER: 01/26/[address]: Bee Salgado MD REQ: [id number] RECD: 01/26/19 STATUS: COMP _ SOURCE: URINE SPDESC: ORDERED: Urine Culture Procedure Result Reported Site Urine Culture Final 01/28/19- 09 ML Organism 1 KLEBSIELLA PNEUMONIAE [place] Count >100,000 (Many) CFU/ML 1. KLEBSIELLA PNEUMONIAE M.I.C. RX --------- ------ Ampicillin R Cefazolin <=4 S Cefepime <=1 S Ceftriaxone <=1 S Ciprofloxacin <=0.25 S Gentamicin <=1 S Levofloxacin <=0.12 S Meropenem <=0.25 S Nitrofurantoin 64 I Tetracycline <=1 S Pipercillin/Tazobactam <=4 S Trimethoprim/Sulfamethoxazole <=20 S Amoxicillin/Clavulanic Acid <=2 S Aztreonam <=1 S Contact the Microbiology Department for any additional antibiotic reporting. * - Main Lab . END OF REPORT DEPARTMENT OF PATHOLOGY, [address] [place] [address] Inocencio Jernigan M.D. Director [facility] # [id number] 15 Microcytic anemia with red cell indices suggestive of iron deficiency. Additional studies as clinically warranted. Reviewed by Dr. Jernigan 16 Therapeutic target for the treatment of diabetes mellitus patients is <7% HBA1C, and in selective patients <6.0%. Please refer to [place] [employer] diabetic care guidelines for further information. 17 Normal Range 180 to 914 Indeterminate Range 145 to 180 Deficient Range <145 18 Consistent with Previous Results Reported on 01/09/19. 19 SEE RESULT BELOW Name: FARTUN SALEEM Davion : [address]: Fernando Basurto MD Acct: [id number] Unit: [id number] AGE: 43 Location: ED Re01/09/19 SEX: F Status: REG ER SPEC: [id number] BOOKER: 01/09/[address]: Fernando Basurto MD REQ: [id number] RECD: 01/09/19 STATUS: COMP [facility] DR: Bee L Salgado MD _ SOURCE: STOOL SPDESC: ORDERED: Occult Bl, Scn Procedure Result Reported Site Stool Occult Blood (1) Final 01/09/19- 07 ML Stool Occult Blood Negative Collection Date (1) 01/09/19 * ML - Main Lab . END OF REPORT DEPARTMENT OF PATHOLOGY, [address] [place] [address] Inocencio Jernigan M.D. Director [facility] # [id number] 20 Because ethnic data is not always [...] 5 Kidney failure <15 (or dialysis) 21 <5.0 Negative 5.0 - 25.0 Indeterminate (Repeat testing recommended after 72 hours) >25.0 Positive Perimenopausal women can display HCG levels of up to 20 mIU/mL 22 Microcytic anemia. Reviewed by Rhonda Pisano MD Procedures Date Code Description Status 05/24/2019 687279753 Diabetic Retinal Eye Exam Completed 05/15/2019 18307 EKG Tracing & Interpretation Completed 02/13/2019 82617 Use Of ECHO Contrast Agent During Stress ECHO Completed 02/13/2019 89588 Stress ECHO Interpretation/Report Hospital Completed 02/13/2019 68250 Treadmill Interp/Report Only Completed 02/13/2019 79407 Stress Test Supervsn W/Out I/R Completed 01/12/2019 53562 EKG Tracing & Interpretation Completed 11/14/2018 748584087 Diabetic Retinal Eye Exam Completed 05/18/2018 49058799 Mammogram Completed 03/10/2017 639661367 Diabetic Retinal Eye Exam Completed 08/20/2016 66297941 Mammogram Completed 11/21/2015 478353136 Diabetic Retinal Eye Exam Completed 09/20/2014 84303451 Mammogram Completed Medical Devices Description No Information Available Encounters Type Date Location Provider Dx Diagnosis Office Visit 05/15/2019 [facility] Lan Molina R06.02 Shortness of 10:00a Of Jozef Farnsworth M.D. breath Z01.810 Encounter for preprocedural cardiovascular examination R07.9 Chest pain, unspecified Office Visit 05/09/2019 10:30a [facility] Ember Godoy, N92.0 Excessive and Clinic of [facility] IMPROVEMENT RN-Cde frequent menstruation with regular cycle F17.210 Nicotine dependence, cigarettes, uncomplicated Office Visit 04/26/2019 10:50a [facility] Internal Jordyn E11.9 Type 2 diabetes Medicine - Jarvis Smith mellitus without Ccmob complications N92.0 Excessive and frequent menstruation with regular cycle Z23 Encounter for immunization L08.9 Local infection of the skin and subcutaneous tissue, unsp F17.210 Nicotine dependence, cigarettes, uncomplicated Office Visit 04/10/2019 10:00a [facility] Wilfredo Shore, D64.9 Anemia , Services Of [facility] TEAROOM HOSTESS unspecified G47.33 Obstructive sleep apnea (adult) (pediatric) G43.009 Migraine w/o aura, not intractable, w/o status migrainosus Office Visit 03/19/2019 Pulmonology And Lydia G47.33 Obstructive sleep 3:00p Sleep Services Of TRACY Caldwell apnea (adult) [facility] (pediatric) F17.210 Nicotine dependence, cigarettes, uncomplicated J45.909 Unspecified asthma, uncomplicated Office Visit 02/13/2019 [facility] Gastroenterology Elissa D64.9 Anemia, 2:00p Rhonda unspecified TRACY Mae 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 Office Visit 02/06/2019 [facility] Internal Medicine Chantel Won, E16.1 Other 11:00a - Graeme BEDOLLA hypoglycemia Office Visit 02/02/2019 [facility] Gastroenterology Elissa D64.9 Anemia, 11:15a Rhonda unspecified TRACY Mae 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33 Obstructive sleep apnea (adult) (pediatric) R53.83 Other fatigue Office Visit 01/12/2019 2:20p [facility] Internal Alysia Z01.818 Encounter for other Medicine - DO Delbert preprocedural Suite R examination G56.01 Carpal tunnel syndrome, right upper limb D64.9 Anemia, unspecified R07.9 Chest pain, unspecified Office Visit 01/08/2019 10:00a [facility] Wilfredo Shore, G56.01 Carpal tunnel Services Of [facility] TEAROOM HOSTESS syndrome, right upper limb G43.009 Migraine w/o aura, not intractable, w/o status migrainosus Office Visit 12/19/2018 10:15a [facility] Pito G56.01 Carpal tunnel at Perla Nieto MD syndrome, right upper limb 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, r hand Office Visit 12/12/2018 2:00p [facility] Internal Chantel Won, I10 Essential ( primary) Medicine - Ccmob hypertension E11.9 Type 2 diabetes mellitus without complications F33.1 Major depressive disorder, recurrent, moderate E03.9 Hypothyroidism, unspecified Office Visit 12/12/2018 [facility] Gastroenterology Elissa E66.01 Morbid 10:15a Rhonda (severe) TRACY Mae obesity due to excess calories R15.2 Fecal urgency Assessments Date Code Description Provider 06/04/2019 N92.0 Excessive and frequent menstruation Ember Godoy, IMPROVEMENT RN-Cde with regular cycle 06/04/2019 F17.210 Nicotine dependence, cigarettes, Ember Walt, IMPROVEMENT RN-Cde uncomplicated 06/04/2019 E66.9 Obesity, unspecified Ember Godoy, IMPROVEMENT RN-Cde 05/15/2019 R06.02 Shortness of breath Lan Farnsworth M.D. 05/15/2019 Z01.810 Encounter for preprocedural Lan Farnsworth M.D. cardiovascular examination 05/15/2019 R07.9 Chest pain Lan Farnsworth M.D. 05/09/2019 N92.0 Excessive and frequent menstruation Ember Godoy IMPROVEMENT RN-Cde with regular cycle 05/09/2019 F17.210 Nicotine dependence, cigarettes, Ember Walt, IMPROVEMENT RN-Cde uncomplicated 04/26/2019 E11.9 Type 2 diabetes mellitus [...] NP 02/13/2019 D64.9 Anemia, unspecified Elissa Mae, TRACY 02/13/2019 Z01.810 Encounter for preprocedural Lan Farnsworth M.D. 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 Elissa Mae NP hypoglycemic drugs 02/06/2019 E16.1 Other hypoglycemia Chantel Upton MD 02/02/2019 D64.9 Anemia, unspecified Elissa Mae, TRACY 02/02/2019 Z79.84 half-way (current) use of oral Elissa Mae TEAROOM HOSTESS hypoglycemic drugs 02/02/2019 E11.9 Type 2 diabetes mellitus without Elissa Mae NP complications 02/02/2019 F17.210 Nicotine dependence, cigarettes, Elissa Mae TEAROOM HOSTESS uncomplicated 01/26/2019 D64.9 Anemia, unspecified Bee Salgado [...] 10:30 am - Lydia Deleon MD at [facility] of [facility]06/08/2019 10:00 am - LUIS DANIEL Marie-Cde at [facility] of [facility]06/05/2019 3:00 pm - Traveling ECHO 1 at [facility]09/26/2019 10:00 am - Bee Salgado MD at [facility] Internal Medicine - Ccmob2019 10:00 am - Yuriy Diamond N.P. at [facility]2019 10:30 am - Lydia Caldwell NP at [facility] Services Of [facility]06/15/2019 10:15 am - Elissa Mae NP at [facility] Hafafjsqeibvsrah90/13 /2020 - LUIS DANIEL Marie-CdeN92.0 Excessive and frequent menstruation with regular cycleFollow up:1. Endometrial biopsy 2. Dr Deleon for hysterectomy koekhxxN35.210 Nicotine dependence, cigarettes, ntvyrrippwtmtA03.9 Obesity, unspecified Functional Status Description No Information Available Mental Status Description No Information Available Referrals Refer to Reason for Referral Status Appt Date Lydia Deleon MD Sent 05/09/2019 [address], [place] [address] [phone] Lan Farnsworth MD Sent 04/25/2019 [facility] [place] [address] [phone] Elissa Mae NP Sent 01/23/2019 [address] [place] [address] [phone]
--- OUTSIDE RECORDS SUMMARY | 2019-07-23 10:51 | XMS REPORT ---
:1975 Author Organization [facility] Care Team Providers Name Role Phone Glenn Wilson Primary Care Physician Unavailable Allergies, Adverse Reactions, Alerts Allergy Code CodeSystem Reaction Severity Criticality Status Start Substance Date Moderate Medications Medication Medication Medication Start Stop Route Dose Status Fill Code CodeSystem Date Date Instructions trazodone 721778 RxNorm 2019- oral 100 mg completed for 30 5-21 07-12 tablet day(s) hydroxyzine 992668 RxNorm 2018- oral 50 mg completed for 30 pamoate 6-25 12-16 capsule day(s) escitalopram 803912 RxNorm 2018- oral 10 mg completed for 30 oxalate 3-22 06-12 tablet day(s) escitalopram 192762 RxNorm 2018- oral 20 mg completed for 30 oxalate 9-17 12-16 tablet day(s) prazosin 983718 RxNorm 2018- oral 2 mg completed for 30 5-21 06-25 capsule day(s) escitalopram 599436 RxNorm 2019- oral 20 mg completed for 30 oxalate 3-22 09-10 tablet day(s) escitalopram 082619 RxNorm 2019- oral 10 mg completed for 30 oxalate 6-12 09-17 tablet day(s) Wellbutrin XL 380813 RxNorm 2018-05- oral 150 mg 1 active Take 1 tablet 2-07 21-02 tablet by mouth once extended a day for 30 release day(s) 24 hr once a day trazodone 905158 RxNorm 2019- oral 100 mg active for 30 7-23 12-25 tablet day(s) prazosin 274881 RxNorm 2019- oral 2 mg 2 completed Take 2 6-25 12-16 capsule capsule every every night night for 30 day(s) trazodone 662337 RxNorm 2019- oral 100 mg completed for 30 5-03 05-21 tablet day(s) gabapentin 111109 RxNorm 2019- oral 600 mg completed for 30 2-25 09-03 tablet day(s) escitalopram 447501 RxNorm 2019- oral 20 mg completed for 30 oxalate 6-12 09-17 tablet day(s) gabapentin 181950 RxNorm 2019- oral 600 mg completed for 30 9-11 12-10 tablet day(s) escitalopram 180530 RxNorm 2019- oral 10 mg completed for 30 oxalate 9-17 12-16 tablet day(s) escitalopram 516572 RxNorm 2019- oral 10 mg 1 completed 1 tablet oxalate 11-0110 tablet once a day once a for 30 day(s) day Problems Problem Name Code CodeSystem Alternate Alternate Start End Status Narrative Code CodeSystem Date Date 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, unspecified Post-traumat 42788929 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, unspecified Obesity, 08658447 SNOMED-CT Active unspecified 02-06 Emotionally 65602996 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 Obesity, 48367419 SNOMED-CT Active unspecified 02-06 Relevant diagnostic tests/laboratory data Narrative No Information Procedures Procedure Code CodeSystem Target Date of Status Service Device Device Device Name Site Procedure Delivery Code Name UID Location Psychotherap [id number] SNOMED-CT () 2019-05-07 complete Mental y, 45 04 d Health- minutes with [place] patient [address], [id number] Psychotherap [id number] SNOMED-CT () 2019-06-01 complete Mental y, 45 04 d Health- minutes with [address], [id number] Psychotherap [id number] SNOMED-CT () 2019-01-04 complete Mental y, 45 04 d Health- minutes with [address], [id number] Psychotherap [id number] SNOMED-CT () 2019-02-06 complete Mental y, 45 04 d Health- minutes with [place] patient [address], [id number] [id number] Psychotherap [id number] SNOMED-CT () 2018-09-04 complete Mental y, 45 04 d Health- minutes with [place] patient [address], [id number] [id number] Psychotherap [id number] SNOMED-CT () 2018-10-05 complete Mental y, 45 04 d Health- minutes with [place] patient [address], [id number] Psychotherap [id number] SNOMED-CT () 2018-11-27 complete Mental y, 45 04 d Health- minutes with [place] patient [address], [id number] Office or [id number] SNOMED-CT () 2018-11-14 complete Mental other 7 d Health- outpatient [place] visit for [address], established [id number] patient, [id number] which requires at least 2 of these 3 ferrari components: An expanded problem focused history; An expanded problem focused examination; Medical decision making of low Office or [id number] SNOMED-CT () 2019-02-06 complete Mental other 7 d Health- outpatient [place] visit for [address], established [id number] patient, [id number] which requires at least 2 of these 3 ferrari components: An expanded problem focused history; An expanded problem focused examination; Medical decision making of low Office or [id number] SNOMED-CT () 2019-04-24 complete Mental other 7 d Health- outpatient [place] visit for [address], established [id number] patient, [id number] which requires at least 2 of these 3 ferrari components: An expanded problem focused history; An expanded problem focused examination; Medical decision making of low Office or [id number] SNOMED-CT () 2019-06-04 complete Mental other 6 d Health- outpatient [place] visit for [address], established [id number] patient, [phone] which requires at least 2 of these 3 ferrari components: A problem focused history; A problem focused examination; Straightforw yannick medical decision making. Counselin Office or [id number] SNOMED-CT () 2019-04-03 complete Mental other 6 d Health- outpatient [place] visit for [address] [id number] patient, [phone] which requires at least 2 of these 3 ferrari components: A problem focused history; A problem focused examination; Straightforw yannick medical decision making. Counselin Office or [id number] SNOMED-CT () 2018-10-10 complete Mental other 6 d Health- outpatient [place] visit for [address] [id number] patient, [phone] which requires at least 2 of these 3 ferrari components: A problem focused history; A problem focused examination; Straightforw yannick medical decision making. Yossi SNOMED-CT () 2018-12-20 complete Mental d Health- [address], [id number] [id number] SNOMED-CT () 2019-04-10 complete [facility] d Health[address], [id number] [phone] Encounters/Encounter Diagnoses Encounter Encounter Diagnosis Diagnosis Diagnosis Date of Service Name Code Code Name CodeSystem Diagnosis Delivery Location Non-Billable 86839 SNOMED-CT 2019-05-31 [facility] , , , Vital Signs No Information Social History Element Description Description Start End Code CodeSystem AdditionalInfo Date Date SexAssignedAtBirth Female 1974-05 F AdministrativeGender 0-18 Hospital Discharge Instructions Reason For Referral Medical Equipment FDA Assessments
[2019-07-23 12:40] VITALS: BP 105/55
== END 2019-07-23 12:53 | disposition left against medical advice (07) ==
LOC: ED 10:32
DX: R05 Cough (principal); Z53.21 Procedure and treatment not carried out due to patient leaving prior to being seen by health care provider
CPT/HCPCS: 99281